=== PATIENT | male | born 1940 | race Caucasian/White ===

== ENCOUNTER 2021-05-16 13:51 | Inpatient (IN) | payer MEDICARE ==
[~2021-05-16] VITALS: Ht 180.3 cm; Wt 97.3 kg
[2021-05-16] MEDS ORDERED: AMLO-187 PO (14:20)
[2021-05-16] MEDS ORDERED: TAMS0.4C97 PO (14:20)
[2021-05-16] MEDS ORDERED: OLAN5TAB7 PO (14:20)
[2021-05-16] MEDS ORDERED: QUET50TA5 PO (14:20)
[2021-05-16] MEDS ORDERED: [UNRECOGNIZED DRUG - CODE] OP (14:20)
[2021-05-16] MEDS ORDERED: LEVO750T5 PO (14:20)
[2021-05-16] MEDS ORDERED: ACET325T21 PO (14:20)
--- NOTE | 2021-05-16 14:35 | NUR ---
Admission Note with Justification for Admission to [facility] Patient admitted to [facility] for protective oversight for emergency stabilization of acute psychiatric crisis. Pt admitted from: [facility] Mode of arrival: Secure Transport Accompanied By: Secure Transport Precipitating behaviors that initiated intake and admission: Patient was reported to be anxious, depressed, AMS, ran away from his house and spent the night outside, delusional, sleep disturbance, thinking his is not his . Description of failure of out patient attempts at stabilization in previous setting list behavior and medication trials: Patient hospitalized for UTI at [facility] with consulted. Behaviors and assessment findings upon admission: Patient calm, mildly confused, sitting in wheelchair. He was unable to name place or city; he was oriented to self, day, and year. He repeatedly asked to talk to Cyndi, his niece/DPOA. HE had multiple abrasions on his body in various states of healing. Large abrasions on his right forehead and right elbow were clean, scabbed over, open to air. Abrasion to left elbow was photographed and re-dressed with petroleum gauze and aquafoam. He has a dunlap in place with a STAT lock retaining device. Plan: Admit for protective oversight for adjustment and stabilization of medications, behaviors and mood. Intense treatment regimen including groups, medication adjustments, therapy, consistent regimen for ADL's, self care, and sleep hygiene. Daily monitoring by Inpatient staff, Psychiatry, and Medical Physician.
[2021-05-16 14:45] VITALS: BP 144/66
--- NOTE | 2021-05-16 14:55 | NUR ---
Call placed to "Henry" at [facility] ([phone]) to inform of Guicho's admission to [facility] and to obtain an authorization. Authorization number is [id number]. Guicho is approved thru 05/18/21 with next review due on 05/19/21 in which a [facility] client representative will contact ANDERS Wells to conduct.
[2021-05-16] MEDS ORDERED: ACETAMINOPHEN 325 MG TABLET PO PRN (16:30)
[2021-05-16] MEDS ORDERED: MAGNESIUM HYDROXIDE 2,400 MG/30 ML ORAL.SUSP. PO PRN (16:45)
[2021-05-16] MEDS ORDERED: MAG HYDROX/AL HYDROX/SIMETH 30 ML ORAL.SUSP PO PRN (16:45)
[2021-05-16] MEDS ORDERED: METHYL SALICYLATE/MENTHOL TOPICAL OINTMENT 57GM TUBE. TP PRN (16:45)
[2021-05-16] MEDS ORDERED: POLYVINYL ALCOHOL/POVIDONE/PF OPHTH SOLUTION DROPERETTE. OU PRN (17:00)
[2021-05-16] MEDS: QUEtiapine 50 MG TABLET. PO SCH (20:30)
--- NOTE | 2021-05-16 21:00 | NUR ---
Nursing Note Pt given Bartolome at was short and rude with GINNER HELPER telling her he was going to rip her head off her body. I spoke with him and he stated he was just tired and that she had awakened him from a deep sleep. We talked for a bit about improving his communication techniques and being more acceptable during interactions. Pt admitted to being short with staff and will try better. Pleasant mostly sometimes labile. Compliant with meds.
--- NOTE | 2021-05-16 22:07 | PDOC ---
Exam Note: Ben Note: Please also refer to the separate dictated note~for this date of service dictated separately.~Patient seen individually. Discussed the patient with Nursing staff reviewed the chart.~Reviewed interim history and current functioning. Reviewed vital signs,~Labs/ Radiology~and current medications noted below. Continue current treatment with the changes noted in the dictated addendum note Assessment: Vital Signs/I&O: Vital Signs Date Time Temp Pulse Resp B/P (MAP) Pulse Ox O2 Delivery O2 Flow Rate FiO2 05/16/21 14:45 97.9 77 16 144/66 (92) 97 Room Air Current Medications: Meds: Current Medications Medications (Trade) Dose Ordered Sig/Angy Route PRN Reason Start Time Stop Time Status Last Admin Dose Admin Acetaminophen (Tylenol) 650 mg PRN Q4HRS PRN PO MILD PAIN / TEMP > 100.3'F 05/16/21 16:30 Amlodipine Besylate (Norvasc) 10 mg DAILY PO 05/17/21 09:00 Levofloxacin (Levaquin) 750 mg DAILY PO 05/17/21 09:00 05/21/21 21:00 Olanzapine (ZyPREXA ZYDIS) 5 mg PRN BID PRN PO PSYCHOSIS 05/16/21 16:30 Quetiapine Fumarate (SEROquel) 50 mg QHS PO 05/16/21 21:00 05/16/21 20:30 Tamsulosin HCl (Flomax) 0.4 mg DAILY PO 05/17/21 09:00 Artificial Tears (Refresh Classic) 1 drop PRN DAILY PRN OU DRY EYE 05/16/21 17:00 Multi-Ingredient Ointment (Analgesic [place]) 1 radha PRN QID PRN TP MUSCLE PAIN 05/16/21 16:45 Al Hydroxide/Mg Hydroxide (Mylanta Plus Xs) 15 ml PRN AFTMEALHC PRN PO DYSPEPSIA 05/16/21 16:45 Magnesium Hydroxide (Milk Of Magnesia) 2,400 mg PRN QHS PRN PO CONSTIPATION 05/16/21 16:45 Current Medications Medications (Trade) Dose Ordered Sig/Angy Route PRN Reason Start Time Stop Time Status Last Admin Dose Admin Quetiapine Fumarate (SEROquel) 50 mg QHS PO 05/16/21 21:00 05/16/21 20:30 I have reviewed the current psychotropics carefully including drug interactions. Risk benefit ratio favors no change other than as noted in my dictated progress note. MONTSE LAI MD May 16, 2021 22:07
[2021-05-17 04:33] VITALS: BP 159/94
[2021-05-17 06:59] LABS: BASO # 0.1 x10^3/uL (0.0-0.2); BASO % 1 % (0-3); EOS # 0.4 x10^3/uL (0.0-0.7); EOS % 3 % (0-3); HEMATOCRIT 41.5 % (39.0-53.0); HEMOGLOBIN 13.7 g/dL (13.0-17.5); LYMPH # 1.9 x10^3/uL (1.0-4.8); LYMPH % 14 % (24-48); MEAN CORPUSCULAR HEMOGLOBIN 30 pg (25-35); MEAN CORPUSCULAR HGB CONC 33 g/dL (31-37); MEAN CORPUSCULAR VOLUME 92 fL (79-100); MONO # 1.2 x10^3/uL (0.0-1.1); MONO % 9 % (0-9); NEUT # 10.5 x10^3uL (1.8-7.7); NEUT % 74 % (31-73); PLATELET COUNT 278 x10^3/uL (140-400); RED BLOOD COUNT 4.53 x10^6/uL (4.30-5.70); RED CELL DISTRIBUTION WIDTH 14.4 % (11.5-14.5); WHITE BLOOD COUNT 14.1 x10^3/uL (4.0-11.0)
[2021-05-17 07:10] LABS: ALBUMIN 3.2 g/dL (3.4-5.0); ALBUMIN/GLOBULIN RATIO 0.8 (1.0-1.7); CALCIUM 8.2 mg/dL (8.5-10.1); CREATININE 1.3 mg/dL (0.7-1.3); MAGNESIUM 2.1 mg/dL (1.8-2.4); POTASSIUM 3.6 mmol/L (3.5-5.1); TOTAL BILIRUBIN 0.3 mg/dL (0.2-1.0)
--- NOTE | 2021-05-17 07:43 | EKG ---
[address] [address] Test Date: 2021-05-17 Test Time: 07:23:19 Pat Name: OSMEL ZHANG Department: Room: [address] [place] [address] Gender: M [employer] Super[employer]: : 1940 Requested By: MONTSE LAI Order Number: [id number] Reading MD: Measurements Intervals [place] Rate: 80 P: -5 [place]: 216 QRS: -8 QRSD: 84 T: 12 QT: 362 QTc: 421 Interpretive Statements SINUS RHYTHM PROLONGED [place] INTERVAL LEFTWARD AXIS ABNORMAL ECG RI6.01 No previous ECG available for comparison
[2021-05-17] MEDS: TAMSULOSIN 0.4 MG CAP.ER.24H. PO SCH (08:25)
[2021-05-17] MEDS: levoFLOXacin 750 MG TABLET PO SCH (08:25)
[2021-05-17] MEDS: amLODIPine BESYLATE 10 MG TABLET PO SCH (08:25)
--- NOTE | 2021-05-17 10:29 | NUR ---
Pt was confused and disorganized this morning. He is compliant with medications taken whole. Appetite appears adequate with breakfast. Absent of SI/HI/VH/AH/delusions/pain. Guillen catheter remains patent with clear light yellow urine. He has no complaints/concerns at this time. Plan of care continues, will pass to next shift.
[2021-05-17 11:23] LABS: % ATYL 3 % (0-0); % BANDS 1 % (0-9); % EOS 3 % (0-5); % LYMPHS 18 % (24-48); % METAS 1 % (0-0); % MONOS 8 % (0-10); % MYELOS 3 % (0-0); % SEGS 63 % (35-66); PLT ESTIMATE ADEQUATE (ADEQUATE)
[2021-05-17 12:15] LABS: THYROID STIM HORMONE (TSH) 5.177 uIU/mL (0.358-3.740)
[2021-05-17 15:03] VITALS: BP 146/76
--- NOTE | 2021-05-17 18:29 | NUR ---
Pt was absent of verbal aggression today, however after taking a phone call from his he was noted to have higher agitation and a short-temper towards staff. Agitation included raising of voice and some swearing directed towards staff. Attempts at verbal de-escalation seemed to only agitate pt further, and so staff decided to cease further conversation with him so he could self-regulate his emotions independently.
[2021-05-17] MEDS: QUEtiapine 50 MG TABLET. PO SCH (19:47)
--- NOTE | 2021-05-17 22:18 | PDOC ---
Exam Note: Ben Note: Please also refer to the separate dictated note~for this date of service dictated separately.~Patient seen individually. Discussed the patient with Nursing staff reviewed the chart.~Reviewed interim history and current functioning. Reviewed vital signs,~Labs/ Radiology~and current medications noted below. Continue current treatment with the changes noted in the dictated addendum note Assessment: Vital Signs/I&O: Vital Signs Date Time Temp Pulse Resp B/P (MAP) Pulse Ox O2 Delivery O2 Flow Rate FiO2 05/17/21 15:03 98.1 78 16 146/76 (99) 95 05/16/21 14:45 Room Air I & O 05/16/21 05/16/21 05/17/21 14:00 22:00 06:00 Intake Total 240 ml 120 ml Balance 240 ml 120 ml Labs: Laboratory Tests Test 05/17/21 06:21 White Blood Count 14.1 x10^3/uL (4.0-11.0) H Red Blood Count 4.53 x10^6/uL (4.30-5.70) Hemoglobin 13.7 g/dL (13.0-17.5) Hematocrit 41.5 % (39.0-53.0) Mean Corpuscular Volume 92 fL (79-100) Mean Corpuscular Hemoglobin 30 pg (25-35) Mean Corpuscular Hemoglobin Concent 33 g/dL (31-37) Red Cell Distribution Width 14.4 % (11.5-14.5) Platelet Count 278 x10^3/uL (140-400) Neutrophils (%) (Auto) 74 % (31-73) H Lymphocytes (%) (Auto) 14 % (24-48) L Monocytes (%) (Auto) 9 % (0-9) Eosinophils (%) (Auto) 3 % (0-3) Basophils (%) (Auto) 1 % (0-3) Neutrophils # (Auto) 10.5 x10^3uL (1.8-7.7) H Lymphocytes # (Auto) 1.9 x10^3/uL (1.0-4.8) Monocytes # (Auto) 1.2 x10^3/uL (0.0-1.1) H Eosinophils # (Auto) 0.4 x10^3/uL (0.0-0.7) Basophils # (Auto) 0.1 x10^3/uL (0.0-0.2) Segmented Neutrophils % 63 % (35-66) Band Neutrophils % 1 % (0-9) Lymphocytes % 18 % (24-48) L Atypical Lymphocytes % (Manual) 3 % (0-0) H Monocytes % 8 % (0-10) Eosinophils % 3 % (0-5) Metamyelocytes % 1 % (0-0) H Myelocytes % 3 % (0-0) H Platelet Estimate Adequate (ADEQUATE) D-Dimer (Mattie) 8.46 mg/L (0.00-0.50) H Sodium Level 143 mmol/L (136-145) Potassium Level 3.6 mmol/L (3.5-5.1) Chloride Level 105 mmol/L (98-107) Carbon Dioxide Level 31 mmol/L (21-32) Anion Gap 7 (6-14) Blood Urea Nitrogen 22 mg/dL (8-26) Creatinine 1.3 mg/dL (0.7-1.3) Estimated GFR (Cockcroft-Gault) 53.0 BUN/Creatinine Ratio 17 (6-20) Glucose Level 107 mg/dL (70-99) H Calcium Level 8.2 mg/dL (8.5-10.1) L Magnesium Level 2.1 mg/dL (1.8-2.4) Iron Level 51 ug/dL (65-175) L Total Iron Binding Capacity 242 ug/dL (250-450) L Iron Saturation 21 % (15-34) Total Bilirubin 0.3 mg/dL (0.2-1.0) Aspartate Amino Transferase (AST) 38 U/L (15-37) H Alanine Aminotransferase (ALT) 78 U/L (16-63) H Alkaline Phosphatase 108 U/L (46-116) Total Protein 7.0 g/dL (6.4-8.2) Albumin 3.2 g/dL (3.4-5.0) L Albumin/Globulin Ratio 0.8 (1.0-1.7) L Triglycerides Level 145 mg/dL (0-150) Cholesterol Level 175 mg/dL (0-200) LDL Cholesterol, Calculated 101 mg/dL (0-100) H VLDL Cholesterol, Calculated 29 mg/dL (0-40) Non-HDL Cholesterol Calculated 130 mg/dL (0-129) H HDL Cholesterol 45 mg/dL (40-60) Cholesterol/HDL Ratio 3.0 Thyroid Stimulating Hormone (TSH) 5.177 uIU/mL (0.358-3.740) Current Medications: Meds: Laboratory Tests Test 05/17/21 06:21 White Blood Count 14.1 x10^3/uL Red Blood Count 4.53 x10^6/uL Hemoglobin 13.7 g/dL Hematocrit 41.5 % Mean Corpuscular Volume 92 fL Mean Corpuscular Hemoglobin 30 pg Mean Corpuscular Hemoglobin Concent 33 g/dL Red Cell Distribution Width 14.4 % Platelet Count 278 x10^3/uL Neutrophils (%) (Auto) 74 % Lymphocytes (%) (Auto) 14 % Monocytes (%) (Auto) 9 % Eosinophils (%) (Auto) 3 % Basophils (%) (Auto) 1 % Neutrophils # (Auto) 10.5 x10^3uL Lymphocytes # (Auto) 1.9 x10^3/uL Monocytes # (Auto) 1.2 x10^3/uL Eosinophils # (Auto) 0.4 x10^3/uL Basophils # (Auto) 0.1 x10^3/uL Segmented Neutrophils % 63 % Band Neutrophils % 1 % Lymphocytes % 18 % Atypical Lymphocytes % (Manual) 3 % Monocytes % 8 % Eosinophils % 3 % Metamyelocytes % 1 % Myelocytes % 3 % Platelet Estimate Adequate D-Dimer (Mattie) 8.46 mg/L Sodium Level 143 mmol/L Potassium Level 3.6 mmol/L Chloride Level 105 mmol/L Carbon Dioxide Level 31 mmol/L Anion Gap 7 Blood Urea Nitrogen 22 mg/dL Creatinine 1.3 mg/dL Estimated GFR (Cockcroft-Gault) 53.0 BUN/Creatinine Ratio 17 Glucose Level 107 mg/dL Calcium Level 8.2 mg/dL Magnesium Level 2.1 mg/dL Iron Level 51 ug/dL Total Iron Binding Capacity 242 ug/dL Iron Saturation 21 % Total Bilirubin 0.3 mg/dL Aspartate Amino Transf (AST/SGOT) 38 U/L Alanine Aminotransferase (ALT/SGPT) 78 U/L Alkaline Phosphatase 108 U/L Total Protein 7.0 g/dL Albumin 3.2 g/dL Albumin/Globulin Ratio 0.8 Triglycerides Level 145 mg/dL Cholesterol Level 175 mg/dL LDL Cholesterol, Calculated 101 mg/dL VLDL Cholesterol, Calculated 29 mg/dL Non-HDL Cholesterol Calculated 130 mg/dL HDL Cholesterol 45 mg/dL Cholesterol/HDL Ratio 3.0 Thyroid Stimulating Hormone (TSH) 5.177 uIU/mL Current Medications Medications (Trade) Dose Ordered Sig/Angy Route PRN Reason Start Time Stop Time Status Last Admin Dose Admin Acetaminophen (Tylenol) 650 mg PRN Q4HRS PRN PO MILD PAIN / TEMP > 100.3'F 05/16/21 16:30 Amlodipine Besylate (Norvasc) 10 mg DAILY PO 05/17/21 09:00 05/17/21 08:25 Levofloxacin (Levaquin) 750 mg DAILY PO 05/17/21 09:00 05/21/21 21:00 05/17/21 08:25 Olanzapine (ZyPREXA ZYDIS) 5 mg PRN BID PRN PO PSYCHOSIS 05/16/21 16:30 05/17/21 19:49 Quetiapine Fumarate (SEROquel) 50 mg QHS PO 05/16/21 21:00 05/17/21 19:47 Tamsulosin HCl (Flomax) 0.4 mg DAILY PO 05/17/21 09:00 05/17/21 08:25 Artificial Tears (Refresh Classic) 1 drop PRN DAILY PRN OU DRY EYE 05/16/21 17:00 Multi-Ingredient Ointment (Analgesic [place]) 1 radha PRN QID PRN TP MUSCLE PAIN 05/16/21 16:45 Al Hydroxide/Mg Hydroxide (Mylanta Plus Xs) 15 ml PRN AFTMEALHC PRN PO DYSPEPSIA 05/16/21 16:45 Magnesium Hydroxide (Milk Of Magnesia) 2,400 mg PRN QHS PRN PO CONSTIPATION 05/16/21 16:45 Current Medications Medications (Trade) Dose Ordered Sig/Angy Route PRN Reason Start Time Stop Time Status Last Admin Dose Admin Amlodipine Besylate (Norvasc) 10 mg DAILY PO 05/17/21 09:00 05/17/21 08:25 Levofloxacin (Levaquin) 750 mg DAILY PO 05/17/21 09:00 05/21/21 21:00 05/17/21 08:25 Tamsulosin HCl (Flomax) 0.4 mg DAILY PO 05/17/21 09:00 05/17/21 08:25 I have reviewed the current psychotropics carefully including drug interactions. Risk benefit ratio favors no change other than as noted in my dictated progress note. Diagnosis: Problems: (1) Major neurocognitive disorder MONTSE LAI MD May 17, 2021 22:18
--- NOTE | 2021-05-18 00:39 | NUR ---
Nursing note. Pt compliant and cooperative, but thinks his catheter is a conduit for al things alien. Pt attempting to crush tubing of catheter, reminded him it's there for a reason so that the will not become critically ill. Pt agreed to leave it alone for now.
--- NOTE | 2021-05-18 05:37 | CONS ---
HISTORY OF PRESENT ILLNESS: The patient is an 80-year-old male patient who was referred to [facility] from [facility]. He apparently was admitted there with extreme anxiety, depression, and altered mental status. He ran away from his house and spent a night outside. He is delusional with sleep disturbances, thinks that his is not his . 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 PAST PSYCHIATRIC HISTORY: Significant for dementia with neurocognitive disorder. PAST SURGICAL HISTORY: Significant for ventriculoperitoneal shunt placement. He is also known to have dementia without behavioral disturbances, osteoarthritis, and he also has right total knee arthroplasty. ALLERGIES: He has no known drug allergies. FAMILY HISTORY: His mother has lung cancer. Father has heart disease and heart attack. SOCIAL HISTORY: He is . He lives with his . He is a former smoker, smokes about a pack a day, and smoked for about 7 years, quit in 1964. He does not use any smokeless tobacco, does not drink alcohol or use recreational drugs. PHYSICAL EXAMINATION: GENERAL: When I examined him, he was sitting in his wheelchair in no apparent respiratory distress. He was somewhat pale, but not jaundiced or cyanosed. No lymphadenopathy. No thyromegaly or jugular venous distention. No limb edema. VITAL SIGNS: His heart rate was 78, blood pressure is 146/76, temperature was 98.1, respiratory rate 16, and oxygen saturation was 95%. HEAD, EYES, EARS, NOSE, AND THROAT: Normocephalic, atraumatic. NECK: Supple. HEART: Normal first and second heart sounds, no gallop, rub or murmur. CHEST: Clear to auscultation, no crepitation or rhonchi. ABDOMEN: Scaphoid, soft, nontender. NEUROLOGIC: He is awake, alert, and responding appropriately. All cranial nerves intact. He moves extremities without difficulty, although he is mostly wheelchair bound. He apparently has an indwelling Guillen catheter. LABORATORY DATA: Showed a white cell count of 14,000, hemoglobin 14, hematocrit 42, MCV 92 and platelet count of 278,000 with normal manual differential. His chemistry showed a serum sodium 143, potassium 3.6, chloride 105, bicarbonate 31, anion gap of 7, BUN 22, creatinine 1.3. Estimated GFR was 53 mL per minute. His glucose 107, calcium was 8.2, magnesium was 2.1. Serum iron 61 , TIBC was low at 242 and iron saturation was 21. His total bilirubin and alkaline phosphatase are normal. AST and ALT are slightly elevated. Total protein 7, albumin was 3.2. His serum triglycerides was 145. Total cholesterol was 175, LDL cholesterol 101, VLDL was 29, HDL was 45 and the ratio was 3. His TSH was 5.177, which is slightly above the upper limit of normal. Apparently, his coronavirus by PCR was negative. He had CT scan of the head without contrast, which showed no acute intracranial abnormality identified. His right parietal approach ventriculostomy shunt catheter again noted with unchanged appearance of the ventricles. He has generalized atrophy and chronic microvascular ischemic changes, mild mucosal thickening of the paranasal sinuses. He apparently has had acute kidney injury while at [facility] with a creatinine that has risen up to 3.5, now down to 1.3 mg/dL and he was initially treated with Rocephin, but was transferred to [facility] on [facility]. ASSESSMENT AND PLAN: In summary, this is an 80-year-old male patient, who was admitted to [facility] as a transfer from [facility] in account of anxiety, depression, and altered mental status. He ran away from his house and spent the night outside delusionut with marked sleep disturbances. He thinks his is not his . All of this on a background of neurocognitive disorder due to Parkinson's disease. He has multiple medical problems including: hypertension, hyperlipidemia, morbid obesity, normal pressure hydrocephalus, Parkinson's disease, benign prostatic hypertrophy with bladder outlet obstruction requiring indwelling Guillen catheter. Medically, the patient seems to be stable. All his vital signs are well within acceptable range. I reviewed all his lab work and ____ his white cell count was slightly elevated within the context of urinary tract infection for which he is currently on levofloxacin. He apparently grew Klebsiella pneumoniae and initially treated with IV Rocephin and eventually was switched to oral antibiotic in the form of levofloxacin. All his other lab works are within acceptable ranges, slightly elevated AST and ALT likely due to antibiotic treatment. His TSH was slightly elevated at 1.77 with the upper limit of normal at 3.7. I will order T3, T4, free T4 and we will decide on management dependent on the outcome. Thank you, Dr. Lopez, for allowing me to participate in the care of this patient. DIANA/RISA DR: Luis TID: [id number]
[2021-05-18 06:15] VITALS: BP 151/67
[2021-05-18 07:08] LABS: HEMOGLOBIN A1C 6.1 % (4.8-5.6)
[2021-05-18 08:07] LABS: THYROXINE 6.7 ug/dL (4.5-12.0)
[2021-05-18] MEDS: levoFLOXacin 750 MG TABLET PO SCH (09:02)
[2021-05-18] MEDS: amLODIPine BESYLATE 10 MG TABLET PO SCH (09:02)
[2021-05-18] MEDS: TAMSULOSIN 0.4 MG CAP.ER.24H. PO SCH (09:03)
--- NOTE | 2021-05-18 10:58 | NUR ---
RN DAY SHIFT NOTE: PT PRESENTS WITH PLEASANT MOOD/AFFECT. PT WAS MEDICATION COMPLIANT. PT IS ENGAGEABLE WHEN APPROACHED BY STAFF. PT FOLLOWS RULES AND ROUTINES ON THE UNIT. PT KNOWS HE IS IN THE HOSPITAL. PT BP 151/67, OTHER VITALS WNL. PT SLEPT 7.75 HOURS LAST NIGHT. PT SPENDS TIME SITTING AND KEEPS TO HIMSELF ON THE UNIT. WILL CONTINUE TO MONITOR
[2021-05-18 15:51] VITALS: BP 111/64
--- NOTE | 2021-05-18 19:17 | HP ---
ADMIT DATE: 05/16/2021 PSYCHIATRIC ADMISSION HISTORY/EVALUATION: This is a late entry, date of service, 05/16, covers elements not covered in my initial note of 05/16. I met with the patient on the evening of 05/16 shortly after he was admitted on the unit from [facility]. IDENTIFYING DATA: The patient is an 80-year-old male who presents to us from [facility] where he was hospitalized from home on account of increased anxiety, being depressed with acute mental status changes within the context of his UTI. The patient had run away from home, spent the night outside, was delusional, having marked sleep disturbance. He was convinced that his was an impostor. He had been evaluated at [facility] by Dr. Fernandez, psychiatrist, diagnosed with dementia with delusions and Capgras syndrome, deemed to be a potential danger to himself and others. Given his psychosis, agitation, unmanageable behaviors, he was referred for inpatient psychiatric stabilization. In addition to his Parkinson's, he also has a diagnosis of normal pressure hydrocephalus with ventriculoperitoneal shunt in place. CHIEF COMPLAINT: "I came here today from the hospital. Yes, I get a little confused. It is 04/2021. The president is President Ishmael. Before him, it was president Guy." The patient responded above to my specific questions as detailed below in mental status. HISTORY OF PRESENT ILLNESS: The patient reportedly lives at home with his and has been extremely paranoid, psychotic, delusional, believing she is an impostor. He has been agitated there, ran away from home as noted, angry, irritable with marked sleep disturbance, and behaviors have been deemed dangerous, unmanageable, resulting in this referral. PAST PSYCHIATRIC HISTORY: As above. MEDICAL HISTORY: Positive for urinary sepsis, Parkinson's disease, normal pressure hydrocephalus with JEWELRY CUTTER shunt, obesity, hypertension, hyperlipidemia, hypokalemia, BPH, fluid retention. Guillen catheter in place. DIET: Cardiac. ACCU-CHEKS: None. CURRENT PSYCHOTROPICS: Zyprexa 5 mg p.r.n. b.i.d., Seroquel 50 mg at bedtime. FAMILY HISTORY: Noncontributory. SOCIAL HISTORY: The patient lives at home with his . No alcohol, drug abuse, physical, sexual or elder abuse history is noted. He is not known to be a perpetrator. He states he had 1 son who had a motor vehicle accident at age 15 with severe head injury and was on life sustaining measures at home for about 10 years before he . REACTION TO HOSPITALIZATION: The patient accepting of it. ASSETS: Supportive family. REVIEW OF SYSTEMS: Positive for some tiredness. No CV, , pulmonary, eye, ENT system symptoms on review. MENTAL STATUS EXAMINATION: The patient is oriented to himself and situation. He knew it was 04/2021. The president was President Ishmael. Before President Bidtanvi, it was president Guy. He was able to do one step on serial sevens and no more. Attention span short. He is otherwise able to give a relevant history as noted. Attention span short. Language function intact. Mood and affect somewhat irritable, angry, labile at times. No active suicidal or homicidal ideation. He does appear depressed as well quite distractable. LABORATORY DATA: Reviewed. IMPRESSION: Major depressive disorder, rule out psychotic features; major neurocognitive disorder secondary to Parkinson's and normal pressure hydrocephalus, possibly vascular with delusion, depression, behavioral disturbance; anxiety disorder, unspecified; impulse control disorder, unspecified. Rest as noted above. PLAN: Admit to geropsychiatry unit at [facility]. I will see the patient daily individually from a psychiatric standpoint. Medical followup, Dr. Castellon/Dr. Gutierrez. Continue the patient on his current psychotropics. Observe baseline. Make adjustments as clinically indicated. Consider having a CT head workup of his normal pressure hydrocephalus, especially given acute mental status changes even though they are within the context of his UTI and Parkinson's. We will make further adjustments as clinically indicated. ESTIMATED LENGTH OF STAY: 10-12 days. DISPOSITION PLANS: Possibly back home with outpatient followup. MOOSE DR: Pepper TID: [id number]
[2021-05-18] MEDS: QUEtiapine 50 MG TABLET. PO SCH (20:59)
[2021-05-18] MEDS: LACTOBACILLUS RHAMNOSUS GG 1 CAPSULE. PO SCH (20:59)
--- NOTE | 2021-05-18 22:06 | PDOC ---
Exam Note: Ben Note: Please also refer to the separate dictated note~for this date of service dictated separately.~Patient seen individually. Discussed the patient with Nursing staff reviewed the chart.~Reviewed interim history and current functioning. Reviewed vital signs,~Labs/ Radiology~and current medications noted below. Continue current treatment with the changes noted in the dictated addendum note Assessment: Vital Signs/I&O: Vital Signs Date Time Temp Pulse Resp B/P (MAP) Pulse Ox O2 Delivery O2 Flow Rate FiO2 05/18/21 15:51 97.9 78 16 111/64 (80) 95 05/16/21 14:45 Room Air I & O 05/17/21 05/17/21 05/18/21 15:00 23:00 07:00 Intake Total 840 ml 600 ml Output Total 1500 ml Balance 840 ml 600 ml -1500 ml Current Medications: Meds: Current Medications Medications (Trade) Dose Ordered Sig/Angy Route PRN Reason Start Time Stop Time Status Last Admin Dose Admin Acetaminophen (Tylenol) 650 mg PRN Q4HRS PRN PO MILD PAIN / TEMP > 100.3'F 05/16/21 16:30 Amlodipine Besylate (Norvasc) 10 mg DAILY PO 05/17/21 09:00 05/18/21 09:02 Levofloxacin (Levaquin) 750 mg DAILY PO 05/17/21 09:00 05/21/21 21:00 05/18/21 09:02 Olanzapine (ZyPREXA ZYDIS) 5 mg PRN BID PRN PO PSYCHOSIS 05/16/21 16:30 05/17/21 19:49 Quetiapine Fumarate (SEROquel) 50 mg QHS PO 05/16/21 21:00 05/18/21 20:59 Tamsulosin HCl (Flomax) 0.4 mg DAILY PO 05/17/21 09:00 05/18/21 09:03 Artificial Tears (Refresh Classic) 1 drop PRN DAILY PRN OU DRY EYE 05/16/21 17:00 Multi-Ingredient Ointment (Analgesic [place]) 1 radha PRN QID PRN TP MUSCLE PAIN 05/16/21 16:45 Al Hydroxide/Mg Hydroxide (Mylanta Plus Xs) 15 ml PRN AFTMEALHC PRN PO DYSPEPSIA 05/16/21 16:45 Magnesium Hydroxide (Milk Of Magnesia) 2,400 mg PRN QHS PRN PO CONSTIPATION 05/16/21 16:45 Lactobacillus Rhamnosus (Culturelle) 1 cap BID PO 05/18/21 21:00 05/18/21 20:59 Current Medications Medications (Trade) Dose Ordered Sig/Angy Route PRN Reason Start Time Stop Time Status Last Admin Dose Admin Lactobacillus Rhamnosus (Culturelle) 1 cap BID PO 05/18/21 21:00 05/18/21 20:59 I have reviewed the current psychotropics carefully including drug interactions. Risk benefit ratio favors no change other than as noted in my dictated progress note. 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
--- NOTE | 2021-05-18 23:15 | NUR ---
Pt withdrawn to his room, lying in bed when approached. Pt calm, pleasantly confused, and disorganized. Pt cooperative with assessment and compliant with medications administered whole. No anxiety or delusions thus far this shift.
[2021-05-19 05:43] VITALS: BP 151/65
--- NOTE | 2021-05-19 05:53 | NUR ---
At approximately 2330 last night, pt pulled out his dunlap catheter with balloon full and intact. Pt actively bleeding afterwards. When asked why he had pulled the catheter out, pt replied, "I had to piss". Pt sitting on the toilet, staff assisted pt to stand and area cleansed with wipes. When pulling back pt's foreskin, a clot the size of a quarter was removed. Clean brief applied with wash cloth placed over top of penis to monitor bleeding. Rechecked bleeding after 30 minutes, bleeding had slowed but there was still a copious amount of blood on the washcloth. Area cleansed again and clean wash cloth applied. Rechecked at 0115 with only a small amount of blood noted on the wash cloth, which was left in place and pt checked every hour. Pt up to the bathroom at 0430 and was able to void, there was a very large amount of blood noted in the toilet after void but only a small amount noted from penis. Post void residual bladder scan yields < 93mL retained urine in the bladder.
--- NOTE | 2021-05-19 07:02 | PDOC ---
Exam Note: Ben Note: This note is a late entry for 05/17/2021 covers elements not covered in my initial note. Subjective: The patient was seen face to face in the evening of 05/17/2021 with Zeinab ENCINAS, discussed and reviewed the chart. The patient slept 7 hours previous night. He has been scratching himself at the elbow by crawling on the ground. He does have a Guillen in place due to urinary retention. He has talked about his 16-year-old son in a motor vehicle accident and finally after 10 years of being cared at home. He is somewhat irritable, anxious, restless during the af ternoon with little bit better later in the day. We will check CT head if not done in 6 months. WBC is 14.1 better than the [address] previously. We will defer to Dr. Castellon. He continues to be convinced his Anya is an imposter and I addressed with him. Review of Systems: Ambulation impaired with walker. No CV, , pulmonary, eye system symptoms on review. Mental Status Exam: The patient is oriented to himself and situation. Speech is coherent. Abstraction fair. Computation impaired. Language function intact. Mood and affect depressed and anxious, labile at times. No suicidal or homicidal ideation. Laboratory Data: Reviewed. 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 Anxiety disorder, unspecified. Impulse control disorder, unspecified. Major depressive disorder. Plan: Continue current psychotropics. Lab workup as above. Treat the UTI. We will make further adjustments in psychotropics as clinically indicated. Assessment: Vital Signs/I&O: Vital Signs Date Time Temp Pulse Resp B/P (MAP) Pulse Ox O2 Delivery O2 Flow Rate FiO2 05/19/21 05:43 98.8 79 18 151/65 (93) 95 Room Air I & O 05/18/21 05/18/21 05/19/21 15:00 23:00 07:00 Intake Total 720 ml 420 ml Output Total 600 ml 1300 ml Balance 720 ml -180 ml -1300 ml Current Medications: Meds: Current Medications Medications (Trade) Dose Ordered Sig/Angy Route PRN Reason Start Time Stop Time Status Last Admin Dose Admin Lactobacillus Rhamnosus (Culturelle) 1 cap BID PO 05/18/21 21:00 05/18/21 20:59 I have reviewed the current psychotropics carefully including drug interactions. Risk benefit ratio favors no change other than as noted in my dictated progress note. 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
[2021-05-19] MEDS: levoFLOXacin 750 MG TABLET PO SCH (08:07)
[2021-05-19] MEDS: LACTOBACILLUS RHAMNOSUS GG 1 CAPSULE. PO SCH ×2 (08:07→20:47)
[2021-05-19] MEDS: TAMSULOSIN 0.4 MG CAP.ER.24H. PO SCH (08:08)
[2021-05-19] MEDS: amLODIPine BESYLATE 10 MG TABLET PO SCH (08:08)
--- NOTE | 2021-05-19 10:00 | RAD ---
EXAM: Head CT without contrast. HISTORY: Altered mental status. TECHNIQUE: Computed tomographic images of the head were obtained without contrast. *One or more of the following individualized dose reduction techniques were utilized for this examina tion: 1. Automated exposure control. 2. Adjustment of the mA and/or kV according to patient size. 3. Use of iterative reconstruction technique. COMPARISON: None. FINDINGS: There is a right parietal approach ventricular catheter terminating within the body of the left lateral ventricle slightly to the left of midline. There is moderate ventricular enlargement. Th is appears to be appropriate for the degree of cerebral atrophy. There is an incidental cavum septum pellucidum et vergae. There are areas of decreased attenuation within the cerebral white matter, like ly due to chronic small vessel disease. There is decreased right maxillary sinus size due to the sequela of chronic sinusitis or hypoplasia. There is paranasal sinus also thickening. There is sphenoid sinus wall thickening due to chronic sinu sitis and there is a small sphenoid sinus mucous retention cyst. The mastoid air cells are clear. The re is no suspicious calvarial lesion. IMPRESSION: 1. No acute intracranial finding. Note is made that MRI is more sensitive for acute infarction. 2. Right parietal approach ventricular catheter terminating within the left lateral ventricle. The ve ntricles are prominent in size. However, this appears to be within appropriate limits for the degree of cerebral volume loss. There is no prior study to assess for interval change. 3. Bilateral cerebral white matter changes, likely due to chronic small vessel disease. Electronically signed by: Amelia Adame MD (05/19/2021 9:58 AM) [id number]
--- NOTE | 2021-05-19 10:49 | RAD ---
EXAM: CT right femur without IV contrast DATE: 05/19/2021 9:00 AM COMPARISON: No prior INDICATION: mass in the anterior aspect of right thigh TECHNIQUE: CT of the right femur was performed without IV contrast. Axial, coronal and sagittal refor matted images were generated. PQRS compliance statement - One or more of the following individualized dose reduction techniques wer e utilized for this study: 1. Automated exposure control 2. Adjustment of the mA and/or kV according to patient size 3. Use of iterative reconstruction technique FINDINGS: A fat-containing lesion is seen within the anterior-medial right thigh is seen measuring approximatel y 5 x 8 x 28 cm (AP by transverse by craniocaudal). This mass appears to be a part of the sartorius m uscle belly with associated displacement of the residual muscle. Internal septations are seen. This m ass causes bowing of the overlying fascia. The the right femoral artery is seen at the posterior jacoby in of this mass. Atherosclerotic calcifications are seen. Prostate is enlarged. No pelvic ascites. Small focus of gas within the bladder possibly from recent i nstrumentation. No acute fracture or dislocation. IMPRESSION: Fat-containing mass in the anteromedial right thigh is seen. 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 Electronically signed by: Edmar Fernandez MD (05/19/2021 10:47 AM) [facility]
--- NOTE | 2021-05-19 11:05 | NUR ---
RN DAY SHIFT NOTE: PT PRESENTED WITH A PLEASANT MOOD/AFFECT. PT WAS MEDICATION COMPLIANT. PT KNEW HIS NAME AND BIRTHDAY. PT KNOWS HE IS IN THE HOSPITAL, BUT CAN'T REMEMBER WHAT CITY. PT IS LOW-SCOTT ON THE UNIT. PT IS NOTED TO SPEND TIME SITTING IN THE HALLWAY. PT WILL ENGAGE WITH STAFF WHEN APPROACHED AND IS APPROACHABLE. PT FOLLOWS RULES/ROUTINES ON THE UNIT. PT HAS A BP OF 151/65 AND OTHER VITALS ARE WNL. PT SLEPT 4 HOURS LAST NIGHT. PT CONTINUES TO HAVE A GOOD APPETITE. WILL CONTINUE TO MONITOR.
--- NOTE | 2021-05-19 12:52 | NUR ---
WEEKLY ACTIVITY THERAPY NOTE Date of Admission: 05/16/2021 Date of AT Assessment: TBD Precipitating behaviors that initiated intake and admission: Patient was reported to be anxious, depressed, AMS, ran away from his house and spent the night outside, delusional, sleep disturbance, thinking his is not his . Goal aimed: TBD Initial Goal: TBD Weekly progress towards goal: NA Group participation level: NA Weekly highlights: arrived on unit Behaviors observed: new patient Plan: meet/ assess Pt Beneficial adaptations:
--- NOTE | 2021-05-19 13:00 | NUR ---
ACTIVITY THERAPY ASSESSMENT Completed based on observation, interview, and notes. Pt was sitting in his doorway and willing to speak with AUTOMOBILE TESTER. When offered leisure materials, Pt said "anything will be beneficial;" however, he did not specify. He shared he liked cars, working on equipment, physical therapy (weights and bands), reading, and liked country/western and early 70's music. 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 He was wearing a [employer] shirt and said he was a [employer]. He mentioned he keeps in touch with his family and friends occasionally. He said he has a good handle on his stress and would weight lift to manage it. He said he can see and hear ok but knows his memory is "slipping", and identified that as being one reason he is here. Reports indicate Pt is confused, forgetful, disorganized, and verbally aggressive at times. He removed his Guillen, impulsively and would benefit from supervision for safety and social/ leisure opportunities. Initial goal aimed to increase relaxation techniques and socialization: Pt. will participate in at least five Activity Therapy individual or group sessions per week.
--- NOTE | 2021-05-19 14:00 | NUR ---
ANDERS completed concurrent review with Brittaney at [facility]. Based off the information received pt will be approved for continued stay for the next two days with concurrent review due on 05/21 at 1300. Authorization number #[id number]
--- NOTE | 2021-05-19 14:12 | NUR ---
Treatment team update: Pt is eating between 75-100% of meals and sleeping 4 hours at HS. Pt is mostly cooperative and compliant with medications whole. Pt is A/O times 2; but appears more confused in the evening. Pt pulled out his dunlap last night; nursing to continue with doing bladder scans to see if he can void on his own. Pt will stop Seroquel 50mg q HS, start Risperdal 0.5mg q HS, Zoloft 25mg daily and Remeron 7.5mg at HS. Pt family is looking for placement; however, pending insurance review, pt may have to discharge home with private duty services until placement can be found.
[2021-05-19 15:35] LABS: BILIRUBIN,URINE NEG (NEG); CLARITY,URINE CLOUDY; COLOR,URINE YELLOW; GLUCOSE,URINE NEG (NEG); NITRITE,URINE NEG (NEG); RBC,URINE >40 /HPF (0-2); UROBILINOGEN,URINE 0.2 mg/dL (0.2 mg/dL)
[2021-05-19 15:36] LABS: BACTERIA,URINE 0 /HPF (0-FEW); SQUAMOUS EPITHELIAL CELL,UR FEW /LPF; WBC,URINE OCC /HPF (0-4)
--- NOTE | 2021-05-19 16:30 | NUR ---
PSYCHOSOCIAL ASSESSMENT ADMISSION DATE: 05/16/21 CONTACT INFORMATION: DPOA/Guardian Contact Name: Yumiko Herrera (Dee) Contact Address: [facility] Contact Phone #: ETHNIC ORIGIN: REASONS FOR ADMISSION: Anxiety/Panic Delusions Depressed Sig. Change Sleep ADDITIONAL ADMISSION COMMENTS: According to the intake, pt is anxious, depressed, has altered mental status, round out of his house and spent the night outside, delusional, sleep disturbance, belives his is not his . REASON FOR ADMISSION IN PATIENT/FAMILY'S OWN WORDS: Was hoping it was just the UTI/sepsis and he would clear but concerns that it is more. PATIENT/FAMILY EXPECTATIONS FOR ADMISSION: Medication and behavioral management, possible placement assistance LIVING SITUATION: Patient lives with: Spouse Other living arrangements: lives at home with spouse and caregiver assist Contact Name: Contact Address: [address] [place] [address]; [place] [address] Contact Phone #: FAMILY RELATIONS: Marital Status: # of Marriages: 1 # of Children: 1 [facility] Family Support: Cooperative Involved in DC Planning Additional Comments r/t Family: Pt is currently to his Anya of over 45 years of marriage. Together they had one son Taras, who in 2007. Pt son had a motorcycle accident which left pt in need of care 12/04. Pt and his surrounded everything around their son until he in 2007 from complications with pneumonia. Pt niece, Nhung, is his next closest living relative. Pt Anya lives in the home and suffers from Dementia herself. SIGNIFICANT PSYCHIATRIC/MEDICAL HISTORY: Psychiatric/Treatment History: This is pt first psychiatric stay on [facility]. Pt was referred from [facility] ED; he was seen by Dr. Fernandez for a psychological evaluation. Further treatment was recommended. Pertinent Family History: No mental health history. Pt family has all passed from medical issues and at early ages. His mother in her late 40's from Cancer, Dad in his mid-60's, one sister from Lupus and his other from Multiple Sclerosis both in there early 70's, his brother passed from Parkinsons in his mid 70's. HISTORICAL DATA: Childhood Environment: [place] Childhood Environment Additional Comments: Pt grew up in [place] with 2 sisters and a brother. All of pt family has passed. Pt niece reports that the family were all close. Pt sister was a nurse for their son while he was receiving care at home. 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 service: N [employer]ational background: [employer] Sexual orientation: Heterosexual Educational Level: Pt received a B.S. in Business from [employer]. Past/Present Interests/Hobbies: N/A Financial support/resources: [employer] Security Monthly income: Person handling finances: Pt has a nephew is his trustee Do you have a history of legal problems: N Cultural considerations: None SOCIAL RELATIONSHIPS-CURRENT/PAST: Psychiatrist: None PCP: Dr. Lalit Puente Counselor/Therapist: None Veterans' Administration: None Support Group: None Aircraft Painter/Twisting Press Operator: None Other relationships: Caregivers in the home STRENGTHS & WEAKNESSES: Patient's strengths: Good family support Good verbal skills Approachable Other patient strengths: Patient's weaknesses: Impulsive Health problems Other patient weaknesses: PRELIMINARY PLAN OF TREATMENT: Preliminary plan: Dec. Anxiety/Panic Dec. Symp. Depression Promote Coping Skill Medication Stabilization Monitor Med Effects Other preliminary treatment comments: DISCHARGE PLANNING: Discharge planning/disposition: Current Living Arrange. Placement Needed Additional discharge needs identified: Referrals for a higher level of care. ADDITIONAL INFORMATION: Other Pertinent Data: completed PSA with pt niece, Nhung, who is currently at pt residence caring for pt . Nhung reports that pt has always said quirky things; but in the last month, pt behaviors has declined. Pt had the shunt placed and physically appeared better as she started walking instead of needing the wheelchair. But his cognition seemed off (e.g. 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 Pt does suffer from Dementia and needs assistance. Pt niece reports that pt was never formally received testing for Parkinsons or Dementia. Pt PCP noted the tremor and questioned Parkinson's but never saw a specialist to confirm it. Same with the Dementia diagnosis. She would like to make sure these diagnosis can be confirmed or documented not as hearsay. Pt rosita also noted that pt does not have a lot of money. Despite all of pt successful business ventures, millions of dollars were spent on care for his son during the years he remained alive. He has a couple assets so he would not qualify for Medicaid but financially is not as well off as people expect pt to be. ANDERS explained that with placement he would be considered as private pay would could be costly; however, pt rosita does not want to attempt for Medicaid at this time. ANDERS informed Nhung that the next insurance review is due on Wednesday and ANDERS would be able to give her an update on how that goes.
[2021-05-19 16:32] VITALS: BP 147/63
[2021-05-19] MEDS: risperiDONE 0.5 MG TABLET. PO SCH (20:47)
[2021-05-19] MEDS: MIRTAZAPINE 7.5 MG TABLET. PO SCH (20:47)
--- NOTE | 2021-05-19 22:06 | PDOC ---
Exam Note: Ben Note: Please also refer to the separate dictated note~for this date of service dictated separately.~Patient seen individually. Discussed the patient with Nursing staff reviewed the chart.~Reviewed interim history and current functioning. Reviewed vital signs,~Labs/ Radiology~and current medications noted below. Continue current treatment with the changes noted in the dictated addendum note Assessment: Vital Signs/I&O: Vital Signs Date Time Temp Pulse Resp B/P (MAP) Pulse Ox O2 Delivery O2 Flow Rate FiO2 05/19/21 16:32 98.3 100 18 147/63 (91) 94 05/19/21 05:43 Room Air I & O 05/18/21 05/18/21 05/19/21 15:00 23:00 07:00 Intake Total 720 ml 420 ml Output Total 600 ml 1300 ml Balance 720 ml -180 ml -1300 ml Labs: Laboratory Tests Test 05/19/21 15:05 Urine Collection Type Unknown Urine Color Yellow Urine Clarity Cloudy Urine pH 5.5 Urine Specific Eaton 1.025 Urine Protein 30 mg/dl (NEG-TRACE) Urine Glucose (UA) Neg mg/dL (NEG) Urine Ketones (Stick) Neg mg/dL (NEG) Urine Blood Large (NEG) Urine Nitrite Neg (NEG) Urine Bilirubin Neg (NEG) Urine Urobilinogen Dipstick 0.2 mg/dL (0.2 mg/dL) Urine Leukocyte Esterase Neg (NEG) Urine RBC >40 /HPF (0-2) Urine WBC Occ /HPF (0-4) Urine Squamous Epithelial Cells Few /LPF Urine Bacteria 0 /HPF (0-FEW) Current Medications: Meds: Laboratory Tests Test 05/19/21 15:05 Urine Collection Type Unknown Urine Color Yellow Urine Clarity Cloudy Urine pH 5.5 Urine Specific Eaton 1.025 Urine Protein 30 mg/dl Urine Glucose (UA) Neg mg/dL Urine Ketones (Stick) Neg mg/dL Urine Blood Large Urine Nitrite Neg Urine Bilirubin Neg Urine Urobilinogen Dipstick 0.2 mg/dL Urine Leukocyte Esterase Neg Urine RBC >40 /HPF Urine WBC Occ /HPF Urine Squamous Epithelial Cells Few /LPF Urine Bacteria 0 /HPF Current Medications Medications (Trade) Dose Ordered Sig/Angy Route PRN Reason Start Time Stop Time Status Last Admin Dose Admin Acetaminophen (Tylenol) 650 mg PRN Q4HRS PRN PO MILD PAIN / TEMP > 100.3'F 05/16/21 16:30 Amlodipine Besylate (Norvasc) 10 mg DAILY PO 05/17/21 09:00 05/19/21 08:08 Levofloxacin (Levaquin) 750 mg DAILY PO 05/17/21 09:00 05/21/21 21:00 05/19/21 08:07 Olanzapine (ZyPREXA ZYDIS) 5 mg PRN BID PRN PO PSYCHOSIS 05/16/21 16:30 05/17/21 19:49 Quetiapine Fumarate (SEROquel) 50 mg QHS PO 05/16/21 21:00 05/19/21 12:13 DC 05/18/21 20:59 Tamsulosin HCl (Flomax) 0.4 mg DAILY PO 05/17/21 09:00 05/19/21 08:08 Artificial Tears (Refresh Classic) 1 drop PRN DAILY PRN OU DRY EYE 05/16/21 17:00 Multi-Ingredient Ointment (Analgesic Xenia) 1 radha PRN QID PRN TP MUSCLE PAIN 05/16/21 16:45 Al Hydroxide/Mg Hydroxide (Mylanta Plus Xs) 15 ml PRN AFTMEALHC PRN PO DYSPEPSIA 05/16/21 16:45 Magnesium Hydroxide (Milk Of Magnesia) 2,400 mg PRN QHS PRN PO CONSTIPATION 05/16/21 16:45 Lactobacillus Rhamnosus (Culturelle) 1 cap BID PO 05/18/21 21:00 05/19/21 20:47 Mirtazapine (Remeron) 7.5 mg QHS PO 05/19/21 21:00 05/19/21 20:47 Sertraline HCl (Zoloft) 25 mg DAILY PO 05/20/21 09:00 Risperidone (RisperDAL) 0.5 mg QHS PO 05/19/21 21:00 05/19/21 20:47 Current Medications Medications (Trade) Dose Ordered Sig/Angy Route PRN Reason Start Time Stop Time Status Last Admin Dose Admin Mirtazapine (Remeron) 7.5 mg QHS PO 05/19/21 21:00 05/19/21 20:47 Risperidone (RisperDAL) 0.5 mg QHS PO 05/19/21 21:00 05/19/21 20:47 I have reviewed the current psychotropics carefully including drug interactions. Risk benefit ratio favors no change other than as noted in my dictated progress note. 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
--- NOTE | 2021-05-19 23:03 | NUR ---
Pt withdrawn to room, lying in bed when approached. Pt disorganized, confused, and interactive. Pt cooperative with assessment and compliant with medications administered whole. Pt up to bathroom, voiding without difficulty at this time. No agitation or aggression noted at this time.
[2021-05-20 05:53] VITALS: BP 141/62
--- NOTE | 2021-05-20 06:30 | NUR ---
Wound Care Wound care consult for abrasion to elbow. Pt has multiple scabbed/healing abrasions to right knee and elbow. Cleansed scabs, not drainage noted. applied skin protectant to keep clean. Wound care will sign off at this time. Please reconsult if new wounds develop.
[2021-05-20] MEDS: levoFLOXacin 750 MG TABLET PO SCH (08:03)
[2021-05-20] MEDS: LACTOBACILLUS RHAMNOSUS GG 1 CAPSULE. PO SCH ×2 (08:04→20:11)
[2021-05-20] MEDS: SERTRALINE 25 MG TABLET. PO SCH (08:04)
[2021-05-20] MEDS: TAMSULOSIN 0.4 MG CAP.ER.24H. PO SCH (08:04)
[2021-05-20] MEDS: amLODIPine BESYLATE 10 MG TABLET PO SCH (08:05)
--- NOTE | 2021-05-20 11:07 | NUR ---
RN DAY SHIFT NOTE: PT PRESENTS WITH CALM, PLEASANT MOOD/AFFECT. PT IS MEDICATION COMPLIANT. PT CONTINUES TO HAVE A GOOD APPETITE. PT SLEPT 5.75 HOURS LAST NIGHT. PTS VITALS ARE WNL. PT IS LOW-SCOTT ON THE UNIT. PT FOLLOWS RULES/ROUTINES ON THE UNIT. PT IS NOTED TO SPEND HIS TIME SITTING IN THE HALLWAY. PT IS APPROACHABLE BY STAFF AND WILL ENGAGE WHEN SPOKEN TO. PT WAS ABLE TO STATE FULL NAME AND . PT KNOWS HE IS IN A HOSPITAL, BUT CANNOT REMEMBER THE NAME OF IT OR THE CITY IT IS IN. WILL CONTINUE TO MONITOR.
--- NOTE | 2021-05-20 15:17 | TX PLAN ---
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 Change Sleep, Anxiety/Panic Problem in Patient's Words: Was hoping it was just the UTI/sepsis and he would clear but concerns that it is more. Additional Admission Comments: According to the intake, pt is anxious, depressed, has altered mental status, round out of his house and spent the night outside, delusional, sleep disturbance, belives his is not his . Problems Active Problems: confusion some impulsivity Inactive Problems: medication compliant Pt Strengths/Limitations Ability for [place]: Poor Cognitive Functioning/Ability: Fair Communication Skills/Ability: Fair Financial Resources: Fair Insight/Judgement: Poor Intellectual Ability: Fair Physical Health: Poor Social Skills: Fair Stability in Family: Good Stability in School/Work: Poor Verbal Skills: Fair Discharge Criteria Discharge Criteria: No need for close observ., Adequate arrangements @DC, Improved behavior, Improved mood/thought Preliminary Discharge Plan Preliminary DC Plan: Placement Needed, Current Living Arrange. Special Precautions Fall Risk: Moderate Initial D/C Plan May have to discharge home with continued caregiver services once placement can be found. Identified Discharge Needs: Referrals for a higher level of care. Currently Utilized Resources Currently Utilized Resources/P: Primary Care Physician Identified Problems/Hx/Goals Objectives/Short-Term Goals Short Term Goals: Dec. Anxiety/Panic, Dec. Symp. Depression, Medication Stabilization, Monitor Med Effects, Promote Coping Skill Short Term Goals in Patient's: N/A Interventions/Frequency Staff Interventions/Frequency&: Psychiatrist to assess pt at least 3x per week for medication management. Social Work to assess pt at least 2x per week to identify barriers to care and finalize discharge plans. Nursing to assess medication effects, behavior modification and complete 15 minute checks daily. Encourage participation in group activities (if applicable) or 1:1 engagement based of Activity Dept goals. 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 Education: Pt received a B.S. in Business from [employer]. 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
[2021-05-20 15:35] VITALS: BP 111/59
--- NOTE | 2021-05-20 16:36 | NUR ---
Bladder Scanner: Used the bladder scanner on pt with a result of 196 ml. PT has voided independently during the shift. Will continue to monitor and encourage pt to void during the shift.
[2021-05-20] MEDS: risperiDONE 0.5 MG TABLET. PO SCH (20:11)
[2021-05-20] MEDS: MIRTAZAPINE 7.5 MG TABLET. PO SCH (20:11)
--- NOTE | 2021-05-20 22:02 | PDOC ---
Exam Note: Ben Note: Please also refer to the separate dictated note~for this date of service dictated separately.~Patient seen individually. Discussed the patient with Nursing staff reviewed the chart.~Reviewed interim history and current functioning. Reviewed vital signs,~Labs/ Radiology~and current medications noted below. Continue current treatment with the changes noted in the dictated addendum note Assessment: Vital Signs/I&O: Vital Signs Date Time Temp Pulse Resp B/P (MAP) Pulse Ox O2 Delivery O2 Flow Rate FiO2 05/20/21 15:35 97.7 59 16 111/59 (76) 96 05/19/21 05:43 Room Air I & O 05/19/21 05/19/21 05/20/21 15:00 23:00 07:00 Intake Total 840 ml 360 ml Balance 840 ml 360 ml Current Medications: Meds: Current Medications Medications (Trade) Dose Ordered Sig/Angy Route PRN Reason Start Time Stop Time Status Last Admin Dose Admin Acetaminophen (Tylenol) 650 mg PRN Q4HRS PRN PO MILD PAIN / TEMP > 100.3'F 05/16/21 16:30 Amlodipine Besylate (Norvasc) 10 mg DAILY PO 05/17/21 09:00 05/20/21 08:05 Levofloxacin (Levaquin) 750 mg DAILY PO 05/17/21 09:00 05/21/21 21:00 05/20/21 08:03 Olanzapine (ZyPREXA ZYDIS) 5 mg PRN BID PRN PO PSYCHOSIS 05/16/21 16:30 05/17/21 19:49 Quetiapine Fumarate (SEROquel) 50 mg QHS PO 05/16/21 21:00 05/19/21 12:13 DC 05/18/21 20:59 Tamsulosin HCl (Flomax) 0.4 mg DAILY PO 05/17/21 09:00 05/20/21 08:04 Artificial Tears (Refresh Classic) 1 drop PRN DAILY PRN OU DRY EYE 05/16/21 17:00 Multi-Ingredient Ointment (Analgesic [place]) 1 radha PRN QID PRN TP MUSCLE PAIN 05/16/21 16:45 Al Hydroxide/Mg Hydroxide (Mylanta Plus Xs) 15 ml PRN AFTMEALHC PRN PO DYSPEPSIA 05/16/21 16:45 Magnesium Hydroxide (Milk Of Magnesia) 2,400 mg PRN QHS PRN PO CONSTIPATION 05/16/21 16:45 Lactobacillus Rhamnosus (Culturelle) 1 cap BID PO 05/18/21 21:00 05/20/21 20:11 Mirtazapine (Remeron) 7.5 mg QHS PO 05/19/21 21:00 05/20/21 20:11 Sertraline HCl (Zoloft) 25 mg DAILY PO 05/20/21 09:00 05/20/21 08:04 Risperidone (RisperDAL) 0.5 mg QHS PO 05/19/21 21:00 05/20/21 20:11 Current Medications Medications (Trade) Dose Ordered Sig/Angy Route PRN Reason Start Time Stop Time Status Last Admin Dose Admin Sertraline HCl (Zoloft) 25 mg DAILY PO 05/20/21 09:00 05/20/21 08:04 I have reviewed the current psychotropics carefully including drug interactions. Risk benefit ratio favors no change other than as noted in my dictated progress note. 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
--- NOTE | 2021-05-21 00:12 | NUR ---
Nursing Note Pt up in hallway intermittently wandering with or without his walker and wheelchair. Very forgetful but easily redirected. Med compliant and cooperative.
[2021-05-21 06:22] VITALS: BP 165/82
[2021-05-21] MEDS: LACTOBACILLUS RHAMNOSUS GG 1 CAPSULE. PO SCH ×2 (08:57→20:03)
[2021-05-21] MEDS: TAMSULOSIN 0.4 MG CAP.ER.24H. PO SCH (08:57)
[2021-05-21] MEDS: levoFLOXacin 750 MG TABLET PO SCH (08:57)
[2021-05-21] MEDS: SERTRALINE 25 MG TABLET. PO SCH (08:57)
[2021-05-21] MEDS: amLODIPine BESYLATE 10 MG TABLET PO SCH (08:58)
--- NOTE | 2021-05-21 09:15 | PDOC ---
Exam Note: Ben Note: This note is a late entry for 05/18/2021 covers elements not covered in my initial note. Subjective: The patient was seen face to face in the evening of 05/18/2021 with Radha ENCINAS, discussed and reviewed the chart. The patient slept 7-3/4 hours previous night. He has been confused, pleasant, quiet, at times interactive and engaged. We will check CT head if not done recently given his mental status changes and history of normal pressure hydrocephalus. Review of Systems: Ambulation impaired in wheelchair. No CV, , pulmonary, eye system symptoms on review. Mental Status Exam: The patient is oriented to himself and situation, somewhat paranoid. Speech is coherent has some latency. Often responses are monosyllabic. Abstraction fair. Computation impaired. Language function intact. Attention span short. Mood and affect withdrawn. Laboratory Data: Reviewed. 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 Anxiety disorder, unspecified. Impulse control disorder, unspecified. Major depressive disorder. Plan: Continue current psychotropics. Assessment: Vital Signs/I&O: Vital Signs Date Time Temp Pulse Resp B/P (MAP) Pulse Ox O2 Delivery O2 Flow Rate FiO2 05/21/21 08:58 72 165/82 05/21/21 06:22 98.0 05/21/21 06:22 20 93 05/19/21 05:43 Room Air I & O 05/20/21 05/20/21 05/21/21 15:00 23:00 07:00 Intake Total 840 ml 600 ml Balance 840 ml 600 ml Current Medications: Meds: Current Medications Medications (Trade) Dose Ordered Sig/Angy Route PRN Reason Start Time Stop Time Status Last Admin Dose Admin Acetaminophen (Tylenol) 650 mg PRN Q4HRS PRN PO MILD PAIN / TEMP > 100.3'F 05/16/21 16:30 Amlodipine Besylate (Norvasc) 10 mg DAILY PO 05/17/21 09:00 05/21/21 08:58 Levofloxacin (Levaquin) 750 mg DAILY PO 05/17/21 09:00 05/21/21 21:00 05/21/21 08:57 Olanzapine (ZyPREXA ZYDIS) 5 mg PRN BID PRN PO PSYCHOSIS 05/16/21 16:30 05/20/21 23:14 Quetiapine Fumarate (SEROquel) 50 mg QHS PO 05/16/21 21:00 05/19/21 12:13 DC 05/18/21 20:59 Tamsulosin HCl (Flomax) 0.4 mg DAILY PO 05/17/21 09:00 05/21/21 08:57 Artificial Tears (Refresh Classic) 1 drop PRN DAILY PRN OU DRY EYE 05/16/21 17:00 Multi-Ingredient Ointment (Analgesic [place]) 1 radha PRN QID PRN TP MUSCLE PAIN 05/16/21 16:45 Al Hydroxide/Mg Hydroxide (Mylanta Plus Xs) 15 ml PRN AFTMEALHC PRN PO DYSPEPSIA 05/16/21 16:45 Magnesium Hydroxide (Milk Of Magnesia) 2,400 mg PRN QHS PRN PO CONSTIPATION 05/16/21 16:45 Lactobacillus Rhamnosus (Culturelle) 1 cap BID PO 05/18/21 21:00 05/21/21 08:57 Mirtazapine (Remeron) 7.5 mg QHS PO 05/19/21 21:00 05/20/21 20:11 Sertraline HCl (Zoloft) 25 mg DAILY PO 05/20/21 09:00 05/21/21 08:57 Risperidone (RisperDAL) 0.5 mg QHS PO 05/19/21 21:00 05/20/21 20:11 I have reviewed the current psychotropics carefully including drug interactions. Risk benefit ratio favors no change other than as noted in my dictated progress note. 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
--- NOTE | 2021-05-21 09:43 | PDOC ---
Exam Note: Ben Note: This note is a late entry for 05/19/2021 covers elements not covered in my initial note. Subjective: The patient was reviewed at treatment team meeting individually in the morning on 05/19/2021 with Kaylan Corcoran, Urvashi Mai (community mental health social worker), Fela, activity therapy and Cassius ENCINAS, discussed and reviewed the chart. The patient slept 4 hours previous night. Patient has been pleasant, aware of his name and date of . He was quite a bit confused, previous night. He pulled his Guillen out and we will monitor this clinically rather than replacing it for now. Appetite is fair. CT head shows no acute changes. Right parietal approach ventricular catheter terminating within the left lateral ventricle. Ventricles are prominent but within the limits for degree of volume loss. Bilateral white matter changes. Chronic small vessel disease. Review of Systems: Ambulation impaired in wheelchair. No CV, , pulmonary, eye system symptoms on review. Mental Status Exam: The patient is oriented to himself. Insight and judgment, recent and remote memory, attention and concentration, fund of knowledge is poor consistent with his diagnoses. Laboratory Data: Reviewed. 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 Anxiety disorder, unspecified. Impulse control disorder, unspecified. Major depressive disorder with psychotic features. Plan: Continue current psychotropics. Assessment: Vital Signs/I&O: Vital Signs Date Time Temp Pulse Resp B/P (MAP) Pulse Ox O2 Delivery O2 Flow Rate FiO2 05/21/21 08:58 72 165/82 05/21/21 06:22 98.0 05/21/21 06:22 20 93 05/19/21 05:43 Room Air I & O 05/20/21 05/20/21 05/21/21 15:00 23:00 07:00 Intake Total 840 ml 600 ml Balance 840 ml 600 ml Current Medications: Meds: Current Medications Medications (Trade) Dose Ordered Sig/Angy Route PRN Reason Start Time Stop Time Status Last Admin Dose Admin Acetaminophen (Tylenol) 650 mg PRN Q4HRS PRN PO MILD PAIN / TEMP > 100.3'F 05/16/21 16:30 Amlodipine Besylate (Norvasc) 10 mg DAILY PO 05/17/21 09:00 05/21/21 08:58 Levofloxacin (Levaquin) 750 mg DAILY PO 05/17/21 09:00 05/21/21 21:00 05/21/21 08:57 Olanzapine (ZyPREXA ZYDIS) 5 mg PRN BID PRN PO PSYCHOSIS 05/16/21 16:30 05/20/21 23:14 Quetiapine Fumarate (SEROquel) 50 mg QHS PO 05/16/21 21:00 05/19/21 12:13 DC 05/18/21 20:59 Tamsulosin HCl (Flomax) 0.4 mg DAILY PO 05/17/21 09:00 05/21/21 08:57 Artificial Tears (Refresh Classic) 1 drop PRN DAILY PRN OU DRY EYE 05/16/21 17:00 Multi-Ingredient Ointment (Analgesic [place]) 1 radha PRN QID PRN TP MUSCLE PAIN 05/16/21 16:45 Al Hydroxide/Mg Hydroxide (Mylanta Plus Xs) 15 ml PRN AFTMEALHC PRN PO DYSPEPSIA 05/16/21 16:45 Magnesium Hydroxide (Milk Of Magnesia) 2,400 mg PRN QHS PRN PO CONSTIPATION 05/16/21 16:45 Lactobacillus Rhamnosus (Culturelle) 1 cap BID PO 05/18/21 21:00 05/21/21 08:57 Mirtazapine (Remeron) 7.5 mg QHS PO 05/19/21 21:00 05/20/21 20:11 Sertraline HCl (Zoloft) 25 mg DAILY PO 05/20/21 09:00 05/21/21 08:57 Risperidone (RisperDAL) 0.5 mg QHS PO 05/19/21 21:00 05/20/21 20:11 I have reviewed the current psychotropics carefully including drug interactions. Risk benefit ratio favors no change other than as noted in my dictated progress note. 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
--- NOTE | 2021-05-21 10:36 | RAD ---
Bilateral Lower Extremity Venous Doppler: Reason for examination: The lower extremity venous systems bilaterally were evaluated from the common femoral and greater sap henous veins distally to the calf veins with grayscale imaging, color-flow imaging and spectral petros sis. There is normal blood flow without deep venous thrombosis in the right lower extremity. There is norm al response of the venous systems to compression and augmentation in the right lower extremity. Right mid to distal SFV is not optimally evaluated due to the mass in the right medial thigh better evalua jeffrey on the CT study. The left common femoral femoral and popliteal veins compress normally and have normal flow with color imaging and Doppler. There is incomplete compression of one posterior tibial vein on the left with e chogenic thrombus suggesting a segment of chronic venous thrombosis. There is some flow with augmenta tion. Impression: 1. No deep venous thrombosis in the right lower extremity venous systems. 2. Focus of venous thrombosis probably chronic in the left posterior tibial vein. 3. No other evidence of deep venous thrombosis in the left lower extremity. 4. 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 Electronically signed by: Brooks Ray MD (05/21/2021 10:34 AM) [facility]
--- NOTE | 2021-05-21 10:41 | PDOC ---
Exam Note: Ben Note: This note is a late entry for 05/20/2021 covers elements not covered in my initial note. Subjective: The patient was seen face to face in the evening of 05/20/2021 with Cassius ENCINAS, discussed and reviewed the chart. The patient slept 5-3/4 hours previous night. He has been calmer, remains confused. Family would like him be assessed for Parkinsons since he had presented diagnosis of this prior to admission. We will consult Dr. Montano Neurology for this. He has been voiding alright today despite having pulled out his Guillen. He was fixated that he was sitting on a bus that needed to take him home and he needed a ticket. Review of Systems: Ambulation impaired in wheelchair. No CV, , pulmonary, eye system symptoms on review. Reliability poor. Mental Status Exam: The patient is oriented to himself and situation. Insight and judgment, recent and remote memory, attention and concentration, fund of knowledge is poor consistent with his diagnoses. Laboratory Data: Reviewed. 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 Anxiety disorder, unspecified. Impulse control disorder, unspecified. Major depressive disorder. Plan: Continue current psychotropics. Assessment: Vital Signs/I&O: Vital Signs Date Time Temp Pulse Resp B/P (MAP) Pulse Ox O2 Delivery O2 Flow Rate FiO2 05/21/21 08:58 72 165/82 05/21/21 06:22 98.0 05/21/21 06:22 20 93 05/19/21 05:43 Room Air I & O0 05/20/21 05/20/21 05/21/21 15:00 23:00 07:00 Intake Total 840 ml 600 ml Balance 840 ml 600 ml Current Medications: Meds: Current Medications Medications (Trade) Dose Ordered Sig/Angy Route PRN Reason Start Time Stop Time Status Last Admin Dose Admin Acetaminophen (Tylenol) 650 mg PRN Q4HRS PRN PO MILD PAIN / TEMP > 100.3'F 05/16/21 16:30 Amlodipine Besylate (Norvasc) 10 mg DAILY PO 05/17/21 09:00 05/21/21 08:58 Levofloxacin (Levaquin) 750 mg DAILY PO 05/17/21 09:00 05/21/21 21:00 05/21/21 08:57 Olanzapine (ZyPREXA ZYDIS) 5 mg PRN BID PRN PO PSYCHOSIS 05/16/21 16:30 05/20/21 23:14 Quetiapine Fumarate (SEROquel) 50 mg QHS PO 05/16/21 21:00 05/19/21 12:13 DC 05/18/21 20:59 Tamsulosin HCl (Flomax) 0.4 mg DAILY PO 05/17/21 09:00 05/21/21 08:57 Artificial Tears (Refresh Classic) 1 drop PRN DAILY PRN OU DRY EYE 05/16/21 17:00 Multi-Ingredient Ointment (Analgesic [place]) 1 radha PRN QID PRN TP MUSCLE PAIN 05/16/21 16:45 Al Hydroxide/Mg Hydroxide (Mylanta Plus Xs) 15 ml PRN AFTMEALHC PRN PO DYSPEPSIA 05/16/21 16:45 Magnesium Hydroxide (Milk Of Magnesia) 2,400 mg PRN QHS PRN PO CONSTIPATION 05/16/21 16:45 Lactobacillus Rhamnosus (Culturelle) 1 cap BID PO 05/18/21 21:00 05/21/21 08:57 Mirtazapine (Remeron) 7.5 mg QHS PO 05/19/21 21:00 05/20/21 20:11 Sertraline HCl (Zoloft) 25 mg DAILY PO 05/20/21 09:00 05/21/21 08:57 Risperidone (RisperDAL) 0.5 mg QHS PO 05/19/21 21:00 05/20/21 20:11 Carbidopa/Levodopa (Sinemet 25/100) 1 tab BID PO 05/21/21 21:00 UNV I have reviewed the current psychotropics carefully including drug interactions. Risk benefit ratio favors no change other than as noted in my dictated progress note. 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
--- NOTE | 2021-05-21 13:02 | NUR ---
Pt has been calm, cooperative, and medication compliant. Pt. is pleasantly confused and wheels around the unit in his wheelchair. Pt was seen by Dr. Montano this morning who advised he be evaluated for physical therapy and made some medication changes. Pt has been eating well and continues to visit with others on the unit.
--- NOTE | 2021-05-21 13:20 | NUR ---
ANDERS completed pt concurrent review with [employer] front desk representative. According to the information provided, pt case will go peer to peer. SW to notify the psychiatrist, the team and pt niece of pt peer to peer status.
--- NOTE | 2021-05-21 14:28 | NUR ---
ANDERS spoke with pt niece, Nhung, to let her know about pt concurrent review. Despite all the information provided, the event sales representative did not feel pt met criteria to stay and said the case would go peer to peer. ANDERS educated pt niece on what the peer to peer process looks like and discussed the downfall of Advantage Plans and whether or not the criteria meets the pt needs at the time. Nhung is concerned as to what to do as pt does not stay in the house and was noted that if he continues to have troubles, they will have to call the state hotline. ANDERS recommended that pt niece start looking into setting up caregiver services and further search for Memory Care facilities that may be able to take pt sooner than later.
[2021-05-21 15:46] VITALS: BP 116/62
--- NOTE | 2021-05-21 16:15 | NUR ---
ANDERS contacted pt rosita to inform her that the peer to peer was denied; therefore, pt will either have to discharge or the family can request an appeal. Nhung would like for the appeal to be requested as she still is searching for placement and does not feel being at home is the safest plan. Nhung questioned how Medicare can do this and ANDERS explained again the difference between Medicare and Advantage plans. Pt plan is overseen via [facility] NOT Medicare. ANDERS let Nhung know that ANDERS would be able to submit all information and could let her know once a decision is made by [facility].
--- NOTE | 2021-05-21 16:52 | NUR ---
Pt has been wandering through the unit in his wheelchair. Nurse noticed he was going into another pt's room and redirected him. Pt put his foot in the door and stated that he needed to go in to help the lady, nurse let pt know that it was not his room and that no one in that room needed his help, he backed up he wheelchair and moved on to his room. Pt later told nurse that he needed "that little girl" to move and he was pointing to a pair of shoes on the ground. Pt was re-directed easily and continued to sit in the hallway. Pt had a doppler done on his L leg due to his D-Dimer being elevated. Results are waiting to be reviewed by Dr. Gutierrez. Pt was also seen this morning by Neurologist Dr. Montano who prescribed Sinemet BID and put in an order for PT consult. It was reported that pt was up wandering the unit all night throughout the night and did not receive any sleep. Any time staff would help him back to bed, he would immediately get back up and start to roam the unit. Dr. Lopez ordered Trazodone 50mg PRN QHS to help with insomnia and increased Remeron to 15mg
[2021-05-21] MEDS: CARBIDOPA/LEVODOPA 25/100MG TABLET PO SCH (20:03)
[2021-05-21] MEDS: MIRTAZAPINE 15 MG TABLET PO SCH (20:03)
[2021-05-21] MEDS: risperiDONE 0.5 MG TABLET. PO SCH (20:03)
--- NOTE | 2021-05-21 21:53 | NUR ---
Nursing Note Pt is combative hitting, kicking and punching attempting to stomp on staff feet, threatening to kill staff, states "I know you put those 3 men in [facility] you stupid bitch, this is all your fault, you will burn in hell and I will sit back and laugh!!" Pt put himself on the floor, is unable to get back to a standing or sitting position without help. When help is offered, he punches staff, and hits staff with his shoes he has removed. He attempted to hit staff with his walker which was to his left, when taken from him he quickly reached for the walker leg and ripped off the cap, and threw it at staff attempting to hit them in the eye, "I will put your eye out you asshole!". Pt delusional and paranoid "You are all accomplices, you have robbed your in-laws of all their money, and property, I will put a contract out on you!" Continues to roll around on the floor making angry remarks and threatening our lives intermittently. He is delusional thinking that we are his employees and he just fired us all "You have all lost your jobs for life, I will make sure you never work again in this business!!" Addendum: 05/21/21 at 2204 by PAMELA CARDOSO RN Continued. This is in sharp contrast to his pleasant demeanor last PM. He didn't sleep last pm, even with Zydis given, but he was redirectable, pleasant and cooperative last night. No agitation on the previous night. Now he is very difficult to manage and is violent to staff and peers. Mio Weberis given with a small amount of water.
--- NOTE | 2021-05-21 21:59 | PDOC ---
Exam Note: Ben Note: Please also refer to the separate dictated note~for this date of service dictated separately.~Patient seen individually. Discussed the patient with Nursing staff reviewed the chart.~Reviewed interim history and current functioning. Reviewed vital signs,~Labs/ Radiology~and current medications noted below. Continue current treatment with the changes noted in the dictated addendum note Assessment: Vital Signs/I&O: Vital Signs Date Time Temp Pulse Resp B/P (MAP) Pulse Ox O2 Delivery O2 Flow Rate FiO2 05/21/21 15:46 97.1 71 20 116/62 (80) 95 05/19/21 05:43 Room Air I & O 05/20/21 05/20/21 05/21/21 15:00 23:00 07:00 Intake Total 840 ml 600 ml Balance 840 ml 600 ml Labs: Laboratory Tests Test 05/21/21 11:05 SARS-CoV-2 (PCR) Negative (NEGATIVE) Current Medications: Meds: Laboratory Tests Test 05/21/21 11:05 Coronavirus (COVID-19)(PCR) Negative Current Medications Medications (Trade) Dose Ordered Sig/Angy Route PRN Reason Start Time Stop Time Status Last Admin Dose Admin Acetaminophen (Tylenol) 650 mg PRN Q4HRS PRN PO MILD PAIN / TEMP > 100.3'F 05/16/21 16:30 Amlodipine Besylate (Norvasc) 10 mg DAILY PO 05/17/21 09:00 05/21/21 08:58 Levofloxacin (Levaquin) 750 mg DAILY PO 05/17/21 09:00 05/21/21 21:00 DC 05/21/21 08:57 Olanzapine (ZyPREXA ZYDIS) 5 mg PRN BID PRN PO PSYCHOSIS 05/16/21 16:30 05/20/21 23:14 Quetiapine Fumarate (SEROquel) 50 mg QHS PO 05/16/21 21:00 05/19/21 12:13 DC 05/18/21 20:59 Tamsulosin HCl (Flomax) 0.4 mg DAILY PO 05/17/21 09:00 05/21/21 08:57 Artificial Tears (Refresh Classic) 1 drop PRN DAILY PRN OU DRY EYE 05/16/21 17:00 Multi-Ingredient Ointment (Analgesic [place]) 1 radha PRN QID PRN TP MUSCLE PAIN 05/16/21 16:45 Al Hydroxide/Mg Hydroxide (Mylanta Plus Xs) 15 ml PRN AFTMEALHC PRN PO DYSPEPSIA 05/16/21 16:45 Magnesium Hydroxide (Milk Of Magnesia) 2,400 mg PRN QHS PRN PO CONSTIPATION 05/16/21 16:45 Lactobacillus Rhamnosus (Culturelle) 1 cap BID PO 05/18/21 21:00 05/21/21 20:03 Mirtazapine (Remeron) 7.5 mg QHS PO 05/19/21 21:00 05/21/21 16:17 DC 05/20/21 20:11 Sertraline HCl (Zoloft) 25 mg DAILY PO 05/20/21 09:00 05/21/21 08:57 Risperidone (RisperDAL) 0.5 mg QHS PO 05/19/21 21:00 05/21/21 20:03 Carbidopa/Levodopa (Sinemet 25/100) 1 tab BID PO 05/21/21 21:00 05/21/21 20:03 Mirtazapine (Remeron) 15 mg QHS PO 05/21/21 21:00 05/21/21 20:03 Trazodone HCl (Desyrel) 50 mg PRN QHS PRN PO insomnia 05/21/21 16:15 Current Medications Medications (Trade) Dose Ordered Sig/Angy Route PRN Reason Start Time Stop Time Status Last Admin Dose Admin Carbidopa/Levodopa (Sinemet 25/100) 1 tab BID PO 05/21/21 21:00 05/21/21 20:03 Mirtazapine (Remeron) 15 mg QHS PO 05/21/21 21:00 05/21/21 20:03 I have reviewed the current psychotropics carefully including drug interactions. Risk benefit ratio favors no change other than as noted in my dictated progress note. 

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
[2021-05-21] MEDS ORDERED: LORazepam INTENSOL 2 MG/ML BOTTLE SL PRN (23:15)
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
[2021-05-21] MEDS: traZODone 50 MG TABLET. PO PRN (23:27)
[2021-05-21 23:40] VITALS: BP 116/62
--- NOTE | 2021-05-22 00:59 | NUR ---
Nursing Note A total of 5 mg Zyprexa given and 50 of trazodone. Pt continued to be highly combative, delusional and paranoid of all staff. assisted him back to bed with help X3. Pt resistive to getting help, angry and irritable. Tries to swat at staff and grabs at their pants legs and shoes while we are trying to tuck him into the blankets. Pt now sleeping.
[2021-05-22 05:26] VITALS: BP 148/72
[2021-05-22] MEDS: amLODIPine BESYLATE 10 MG TABLET PO SCH (08:23)
[2021-05-22] MEDS: CARBIDOPA/LEVODOPA 25/100MG TABLET PO SCH ×2 (08:23→20:19)
[2021-05-22] MEDS: TAMSULOSIN 0.4 MG CAP.ER.24H. PO SCH (08:23)
[2021-05-22] MEDS: LACTOBACILLUS RHAMNOSUS GG 1 CAPSULE. PO SCH ×2 (08:23→20:18)
[2021-05-22] MEDS: SERTRALINE 25 MG TABLET. PO SCH (08:23)
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
--- NOTE | 2021-05-22 09:10 | NUR ---
ANDERS submitted to the expedited appeal fax for [employer] on pt case, which was denied after completion of the Peer to peer. SW to continue to keep pt family updated and await for the answer on the expedited appeal.
--- NOTE | 2021-05-22 11:54 | NUR ---
Pt confused and disorganized this morning. Absent of SI/HI/VH/AH/delusions at this time. He appears calm and withdrawn. Absent of verbal/physical aggression at this time. He is compliant with whole medications. Pt appears to recall no memory of the events from last night. Plan of care continues, will pass to next shift.
[2021-05-22 16:22] VITALS: BP 117/66
[2021-05-22] MEDS: MIRTAZAPINE 15 MG TABLET PO SCH (20:18)
[2021-05-22] MEDS: traZODone 50 MG TABLET. PO PRN ×2 (20:18→23:00)
[2021-05-22] MEDS: risperiDONE 0.5 MG TABLET. PO SCH (20:19)
--- NOTE | 2021-05-22 22:01 | PDOC ---
Exam Note: Ben Note: Please also refer to the separate dictated note~for this date of service dictated separately.~Patient seen individually. Discussed the patient with Nursing staff reviewed the chart.~Reviewed interim history and current functioning. Reviewed vital signs,~Labs/ Radiology~and current medications noted below. Continue current treatment with the changes noted in the dictated addendum note Assessment: Vital Signs/I&O: Vital Signs Date Time Temp Pulse Resp B/P (MAP) Pulse Ox O2 Delivery O2 Flow Rate FiO2 05/22/21 16:22 97.9 56 16 117/66 (83) 97 05/19/21 05:43 Room Air I & O 05/21/21 05/21/21 05/22/21 15:00 23:00 07:00 Intake Total 720 ml 420 ml Balance 720 ml 420 ml Current Medications: Meds: Current Medications Medications (Trade) Dose Ordered Sig/Angy Route PRN Reason Start Time Stop Time Status Last Admin Dose Admin Acetaminophen (Tylenol) 650 mg PRN Q4HRS PRN PO MILD PAIN / TEMP > 100.3'F 05/16/21 16:30 Amlodipine Besylate (Norvasc) 10 mg DAILY PO 05/17/21 09:00 05/22/21 08:23 Levofloxacin (Levaquin) 750 mg DAILY PO 05/17/21 09:00 05/21/21 21:00 DC 05/21/21 08:57 Olanzapine (ZyPREXA ZYDIS) 5 mg PRN BID PRN PO PSYCHOSIS 05/16/21 16:30 05/21/21 22:40 Quetiapine Fumarate (SEROquel) 50 mg QHS PO 05/16/21 21:00 05/19/21 12:13 DC 05/18/21 20:59 Tamsulosin HCl (Flomax) 0.4 mg DAILY PO 05/17/21 09:00 05/22/21 08:23 Artificial Tears (Refresh Classic) 1 drop PRN DAILY PRN OU DRY EYE 05/16/21 17:00 Multi-Ingredient Ointment (Analgesic [place]) 1 radha PRN QID PRN TP MUSCLE PAIN 05/16/21 16:45 Al Hydroxide/Mg Hydroxide (Mylanta Plus Xs) 15 ml PRN AFTMEALHC PRN PO DYSPEPSIA 05/16/21 16:45 Magnesium Hydroxide (Milk Of Magnesia) 2,400 mg PRN QHS PRN PO CONSTIPATION 05/16/21 16:45 Lactobacillus Rhamnosus (Culturelle) 1 cap BID PO 05/18/21 21:00 05/22/21 20:18 Mirtazapine (Remeron) 7.5 mg QHS PO 05/19/21 21:00 05/21/21 16:17 DC 05/20/21 20:11 Sertraline HCl (Zoloft) 25 mg DAILY PO 05/20/21 09:00 05/22/21 08:23 Risperidone (RisperDAL) 0.5 mg QHS PO 05/19/21 21:00 05/22/21 20:19 Carbidopa/Levodopa (Sinemet 25/100) 1 tab BID PO 05/21/21 21:00 05/22/21 20:19 Mirtazapine (Remeron) 15 mg QHS PO 05/21/21 21:00 05/22/21 20:18 Trazodone HCl (Desyrel) 50 mg PRN QHS PRN PO INSOMNIA, MAY REPEAT X1 05/21/21 16:15 05/22/21 20:18 Lorazepam (Ativan Intensol) 0.5 mg PRN Q1HR PRN SL ANXIETY / AGITATION 05/21/21 23:15 I have reviewed the current psychotropics carefully including drug interactions. Risk benefit ratio favors no change other than as noted in my dictated progress note. 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
--- NOTE | 2021-05-23 03:34 | NUR ---
Nursing Note The patient was located in the hallway and in his room this shift. The patient was very disorganized and was alert to self only. The patient was compliant with his medication and took them whole. The patient was restless and displaying increased agitation at HS and was given PRN Trazodone per PRN order. The patient later in the shift awoke again and was again agitated and restless and a repeat dose of Trazodone as well as a Zyprexa was given per PRN order. The patient is currently sleeping in his room.
[2021-05-23 06:10] VITALS: BP 132/63
[2021-05-23] MEDS: TAMSULOSIN 0.4 MG CAP.ER.24H. PO SCH (08:01)
[2021-05-23] MEDS: LACTOBACILLUS RHAMNOSUS GG 1 CAPSULE. PO SCH ×2 (08:01→20:23)
[2021-05-23] MEDS: CARBIDOPA/LEVODOPA 25/100MG TABLET PO SCH ×2 (08:02→20:23)
[2021-05-23] MEDS: SERTRALINE 25 MG TABLET. PO SCH (08:02)
[2021-05-23] MEDS: amLODIPine BESYLATE 10 MG TABLET PO SCH (08:02)
--- NOTE | 2021-05-23 09:56 | PDOC ---
Exam Note: Ben Note: This note is a late entry for 05/21/2021 covers elements not covered in my initial note. Subjective: The patient was seen face to face in the evening of 05/21/2021 with Aime ENCINAS, discussed and reviewed the chart. The patient did not sleep at all previous night. He has been having intermittent hallucinations. Earlier in the day he was doing better. He remained confused but towards the evening he was agitated, paranoid, stated he was driving a car, looking for a bus amongst other things. Also had peer review with patients [facility] psychiatrist Dr. Guido. The patient does need placement. Nevertheless, noted late evening of 05/21, he has been quite psychotic and agitated, disruptive, and we will have to stabilize this inpatient before transitioning to a placement. Review of Systems: Ambulation impaired in wheelchair. No CV, , pulmonary, eye system symptoms on review. Mental Status Exam: The patient is oriented to himself and situation. Insight and judgment, recent and remote memory, attention and concentration, fund of knowledge is poor consistent with his diagnoses. Laboratory Data: Reviewed. 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 Anxiety disorder, unspecified. Impulse control disorder, unspecified. Major depressive disorder. Plan: Continue current psychotropics. We will increase Remeron to 15 mg h.s. to help with insomnia. Add trazodone 50 mg h.s. p.r.n. insomnia. Rest unchanged for now. Assessment: Vital Signs/I&O: Vital Signs Date Time Temp Pulse Resp B/P (MAP) Pulse Ox O2 Delivery O2 Flow Rate FiO2 05/23/21 08:02 63 132/63 05/23/21 06:10 98.1 16 95 05/19/21 05:43 Room Air I & O 05/22/21 05/22/21 05/23/21 15:00 23:00 07:00 Intake Total 360 ml 360 ml Balance 360 ml 360 ml Current Medications: Meds: Current Medications Medications (Trade) Dose Ordered Sig/Angy Route PRN Reason Start Time Stop Time Status Last Admin Dose Admin Acetaminophen (Tylenol) 650 mg PRN Q4HRS PRN PO MILD PAIN / TEMP > 100.3'F 05/16/21 16:30 Amlodipine Besylate (Norvasc) 10 mg DAILY PO 05/17/21 09:00 05/23/21 08:02 Levofloxacin (Levaquin) 750 mg DAILY PO 05/17/21 09:00 05/21/21 21:00 DC 05/21/21 08:57 Olanzapine (ZyPREXA ZYDIS) 5 mg PRN BID PRN PO PSYCHOSIS 05/16/21 16:30 05/22/21 23:00 Quetiapine Fumarate (SEROquel) 50 mg QHS PO 05/16/21 21:00 05/19/21 12:13 DC 05/18/21 20:59 Tamsulosin HCl (Flomax) 0.4 mg DAILY PO 05/17/21 09:00 05/23/21 08:01 Artificial Tears (Refresh Classic) 1 drop PRN DAILY PRN OU DRY EYE 05/16/21 17:00 Multi-Ingredient Ointment (Analgesic [place]) 1 radha PRN QID PRN TP MUSCLE PAIN 05/16/21 16:45 Al Hydroxide/Mg Hydroxide (Mylanta Plus Xs) 15 ml PRN AFTMEALHC PRN PO DYSPEPSIA 05/16/21 16:45 Magnesium Hydroxide (Milk Of Magnesia) 2,400 mg PRN QHS PRN PO CONSTIPATION 05/16/21 16:45 Lactobacillus Rhamnosus (Culturelle) 1 cap BID PO 05/18/21 21:00 05/23/21 08:01 Mirtazapine (Remeron) 7.5 mg QHS PO 05/19/21 21:00 05/21/21 16:17 DC 05/20/21 20:11 Sertraline HCl (Zoloft) 25 mg DAILY PO 05/20/21 09:00 05/23/21 08:02 Risperidone (RisperDAL) 0.5 mg QHS PO 05/19/21 21:00 05/22/21 20:19 Carbidopa/Levodopa (Sinemet 25/100) 1 tab BID PO 05/21/21 21:00 05/23/21 08:02 Mirtazapine (Remeron) 15 mg QHS PO 05/21/21 21:00 05/22/21 20:18 Trazodone HCl (Desyrel) 50 mg PRN QHS PRN PO INSOMNIA, MAY REPEAT X1 9/1/21 16:15 05/22/21 23:00 Lorazepam (Ativan Intensol) 0.5 mg PRN Q1HR PRN SL ANXIETY / AGITATION 05/21/21 23:15 I have reviewed the current psychotropics carefully including drug interactions. Risk benefit ratio favors no change other than as noted in my dictated progress note. 

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
--- NOTE | 2021-05-23 11:20 | NUR ---
Nurse Note Patient alert to self, confused and disorganized. Patient ambulates in hallway and room with walker, feeds self, assist with ADLs.. Patient is compliant with medication takes them whole. Physical therapy working with patient.No behaviors noted at this time.
[2021-05-23 16:37] VITALS: BP 137/75
[2021-05-23] MEDS: risperiDONE 0.5 MG TABLET. PO SCH (20:22)
[2021-05-23] MEDS: MIRTAZAPINE 15 MG TABLET PO SCH (20:23)
[2021-05-23] MEDS: traZODone 50 MG TABLET. PO PRN (20:23)
--- NOTE | 2021-05-23 22:10 | PDOC ---
Exam Note: Ben Note: Please also refer to the separate dictated note~for this date of service dictated separately.~Patient seen individually. Discussed the patient with Nursing staff reviewed the chart.~Reviewed interim history and current functioning. Reviewed vital signs,~Labs/ Radiology~and current medications noted below. Continue current treatment with the changes noted in the dictated addendum note Assessment: Vital Signs/I&O: Vital Signs Date Time Temp Pulse Resp B/P (MAP) Pulse Ox O2 Delivery O2 Flow Rate FiO2 05/23/21 16:37 98.4 59 16 137/75 (95) 98 05/19/21 05:43 Room Air I & O 05/22/21 05/22/21 05/23/21 15:00 23:00 07:00 Intake Total 360 ml 360 ml Balance 360 ml 360 ml Current Medications: Meds: Current Medications Medications (Trade) Dose Ordered Sig/Angy Route PRN Reason Start Time Stop Time Status Last Admin Dose Admin Acetaminophen (Tylenol) 650 mg PRN Q4HRS PRN PO MILD PAIN / TEMP > 100.3'F 05/16/21 16:30 Amlodipine Besylate (Norvasc) 10 mg DAILY PO 05/17/21 09:00 05/23/21 08:02 Levofloxacin (Levaquin) 750 mg DAILY PO 05/17/21 09:00 05/21/21 21:00 DC 05/21/21 08:57 Olanzapine (ZyPREXA ZYDIS) 5 mg PRN BID PRN PO PSYCHOSIS 05/16/21 16:30 05/22/21 23:00 Quetiapine Fumarate (SEROquel) 50 mg QHS PO 05/16/21 21:00 05/19/21 12:13 DC 05/18/21 20:59 Tamsulosin HCl (Flomax) 0.4 mg DAILY PO 05/17/21 09:00 05/23/21 08:01 Artificial Tears (Refresh Classic) 1 drop PRN DAILY PRN OU DRY EYE 05/16/21 17:00 Multi-Ingredient Ointment (Analgesic [place]) 1 radha PRN QID PRN TP MUSCLE PAIN 05/16/21 16:45 Al Hydroxide/Mg Hydroxide (Mylanta Plus Xs) 15 ml PRN AFTMEALHC PRN PO DYSPEPSIA 05/16/21 16:45 Magnesium Hydroxide (Milk Of Magnesia) 2,400 mg PRN QHS PRN PO CONSTIPATION 05/16/21 16:45 Lactobacillus Rhamnosus (Culturelle) 1 cap BID PO 05/18/21 21:00 05/23/21 20:23 Mirtazapine (Remeron) 7.5 mg QHS PO 05/19/21 21:00 05/21/21 16:17 DC 05/20/21 20:11 Sertraline HCl (Zoloft) 25 mg DAILY PO 05/20/21 09:00 05/23/21 08:02 Risperidone (RisperDAL) 0.5 mg QHS PO 05/19/21 21:00 05/23/21 20:22 Carbidopa/Levodopa (Sinemet 25/100) 1 tab BID PO 05/21/21 21:00 05/23/21 20:23 Mirtazapine (Remeron) 15 mg QHS PO 05/21/21 21:00 05/23/21 20:23 Trazodone HCl (Desyrel) 50 mg PRN QHS PRN PO INSOMNIA, MAY REPEAT X1 05/21/21 16:15 05/23/21 20:23 Lorazepam (Ativan Intensol) 0.5 mg PRN Q1HR PRN SL ANXIETY / AGITATION 05/21/21 23:15 I have reviewed the current psychotropics carefully including drug interactions. Risk benefit ratio favors no change other than as noted in my dictated progress note. 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
--- NOTE | 2021-05-23 23:15 | NUR ---
Patient sitting in a chair outside his room on assumption of care. He is in pleasant spirits this evening, no agitation. Alert to self only, confused, disorganized. Compliant with assessments and medications whole. PRN Trazodone given with HS meds due to poor sleep on previous nights. No delusions voiced so far this shift. He appears to be sleeping comfortably at present time. Will continue to monitor.
[2021-05-24 06:14] VITALS: BP 155/77
[2021-05-24 08:35] LABS: BASO # 0.2 x10^3/uL (0.0-0.2); BASO % 2 % (0-3); EOS # 0.2 x10^3/uL (0.0-0.7); EOS % 2 % (0-3); HEMATOCRIT 33.2 % (39.0-53.0); HEMOGLOBIN 10.9 g/dL (13.0-17.5); LYMPH % 21 % (24-48); MEAN CORPUSCULAR HEMOGLOBIN 30 pg (25-35); MEAN CORPUSCULAR HGB CONC 33 g/dL (31-37); MEAN CORPUSCULAR VOLUME 92 fL (79-100); MONO % 11 % (0-9); NEUT # 6.2 x10^3uL (1.8-7.7); NEUT % 64 % (31-73); PLATELET COUNT 304 x10^3/uL (140-400); RED BLOOD COUNT 3.61 x10^6/uL (4.30-5.70); RED CELL DISTRIBUTION WIDTH 14.7 % (11.5-14.5); WHITE BLOOD COUNT 9.7 x10^3/uL (4.0-11.0)
[2021-05-24] MEDS: SERTRALINE 25 MG TABLET. PO SCH (08:36)
[2021-05-24] MEDS: LACTOBACILLUS RHAMNOSUS GG 1 CAPSULE. PO SCH ×2 (08:36→20:16)
[2021-05-24] MEDS: CARBIDOPA/LEVODOPA 25/100MG TABLET PO SCH ×2 (08:36→20:16)
[2021-05-24] MEDS: TAMSULOSIN 0.4 MG CAP.ER.24H. PO SCH (08:37)
[2021-05-24] MEDS: amLODIPine BESYLATE 10 MG TABLET PO SCH (08:37)
[2021-05-24 08:46] LABS: ALBUMIN 2.7 g/dL (3.4-5.0); ALBUMIN/GLOBULIN RATIO 0.9 (1.0-1.7); CALCIUM 7.9 mg/dL (8.5-10.1); CREATININE 1.1 mg/dL (0.7-1.3); GFR 64.2; POTASSIUM 3.5 mmol/L (3.5-5.1); TOTAL BILIRUBIN 0.4 mg/dL (0.2-1.0); TOTAL PROTEIN 5.6 g/dL (6.4-8.2)
[2021-05-24 15:40] VITALS: BP 129/57
--- NOTE | 2021-05-24 17:33 | NUR ---
Nurse Note: Patient in hallway for medication & assessment, meds taken whole. He is alert to self, confused and disorganized. Patient ambulates independently in hallway and room with walker, feeds self, assist with ADLs. He is currently eating dinner. Will continue to monitor.
[2021-05-24] MEDS: risperiDONE 0.5 MG TABLET. PO SCH (20:15)
[2021-05-24] MEDS: traZODone 50 MG TABLET. PO PRN (20:16)
[2021-05-24] MEDS: MIRTAZAPINE 15 MG TABLET PO SCH (20:16)
--- NOTE | 2021-05-24 22:05 | PDOC ---
Exam Note: Ben Note: Please also refer to the separate dictated note~for this date of service dictated separately.~Patient seen individually. Discussed the patient with Nursing staff reviewed the chart.~Reviewed interim history and current functioning. Reviewed vital signs,~Labs/ Radiology~and current medications noted below. Continue current treatment with the changes noted in the dictated addendum note Assessment: Vital Signs/I&O: Vital Signs Date Time Temp Pulse Resp B/P (MAP) Pulse Ox O2 Delivery O2 Flow Rate FiO2 05/24/21 15:40 98.0 60 20 129/57 (81) 95 05/19/21 05:43 Room Air I & O 05/23/21 05/23/21 05/24/21 15:00 23:00 07:00 Intake Total 720 ml 480 ml Balance 720 ml 480 ml Labs: Laboratory Tests Test 05/24/21 07:50 White Blood Count 9.7 x10^3/uL (4.0-11.0) Red Blood Count 3.61 x10^6/uL (4.30-5.70) L Hemoglobin 10.9 g/dL (13.0-17.5) L Hematocrit 33.2 % (39.0-53.0) L Mean Corpuscular Volume 92 fL (79-100) Mean Corpuscular Hemoglobin 30 pg (25-35) Mean Corpuscular Hemoglobin Concent 33 g/dL (31-37) Red Cell Distribution Width 14.7 % (11.5-14.5) H Platelet Count 304 x10^3/uL (140-400) Neutrophils (%) (Auto) 64 % (31-73) Lymphocytes (%) (Auto) 21 % (24-48) L Monocytes (%) (Auto) 11 % (0-9) H Eosinophils (%) (Auto) 2 % (0-3) Basophils (%) (Auto) 2 % (0-3) Neutrophils # (Auto) 6.2 x10^3uL (1.8-7.7) Lymphocytes # (Auto) 2.0 x10^3/uL (1.0-4.8) Monocytes # (Auto) 1.0 x10^3/uL (0.0-1.1) Eosinophils # (Auto) 0.2 x10^3/uL (0.0-0.7) Basophils # (Auto) 0.2 x10^3/uL (0.0-0.2) Sodium Level 143 mmol/L (136-145) Potassium Level 3.5 mmol/L (3.5-5.1) Chloride Level 108 mmol/L (98-107) H Carbon Dioxide Level 27 mmol/L (21-32) Anion Gap 8 (6-14) Blood Urea Nitrogen 22 mg/dL (8-26) Creatinine 1.1 mg/dL (0.7-1.3) Estimated GFR (Cockcroft-Gault) 64.2 BUN/Creatinine Ratio 20 (6-20) Glucose Level 96 mg/dL (70-99) Calcium Level 7.9 mg/dL (8.5-10.1) L Total Bilirubin 0.4 mg/dL (0.2-1.0) Aspartate Amino Transferase (AST) 20 U/L (15-37) Alanine Aminotransferase (ALT) 20 U/L (16-63) Alkaline Phosphatase 84 U/L (46-116) Total Protein 5.6 g/dL (6.4-8.2) L Albumin 2.7 g/dL (3.4-5.0) L Albumin/Globulin Ratio 0.9 (1.0-1.7) L Current Medications: Meds: Laboratory Tests Test 05/24/21 07:50 White Blood Count 9.7 x10^3/uL Red Blood Count 3.61 x10^6/uL Hemoglobin 10.9 g/dL Hematocrit 33.2 % Mean Corpuscular Volume 92 fL Mean Corpuscular Hemoglobin 30 pg Mean Corpuscular Hemoglobin Concent 33 g/dL Red Cell Distribution Width 14.7 % Platelet Count 304 x10^3/uL Neutrophils (%) (Auto) 64 % Lymphocytes (%) (Auto) 21 % Monocytes (%) (Auto) 11 % Eosinophils (%) (Auto) 2 % Basophils (%) (Auto) 2 % Neutrophils # (Auto) 6.2 x10^3uL Lymphocytes # (Auto) 2.0 x10^3/uL Monocytes # (Auto) 1.0 x10^3/uL Eosinophils # (Auto) 0.2 x10^3/uL Basophils # (Auto) 0.2 x10^3/uL Sodium Level 143 mmol/L Potassium Level 3.5 mmol/L Chloride Level 108 mmol/L Carbon Dioxide Level 27 mmol/L Anion Gap 8 Blood Urea Nitrogen 22 mg/dL Creatinine 1.1 mg/dL Estimated GFR (Cockcroft-Gault) 64.2 BUN/Creatinine Ratio 20 Glucose Level 96 mg/dL Calcium Level 7.9 mg/dL Total Bilirubin 0.4 mg/dL Aspartate Amino Transf (AST/SGOT) 20 U/L Alanine Aminotransferase (ALT/SGPT) 20 U/L Alkaline Phosphatase 84 U/L Total Protein 5.6 g/dL Albumin 2.7 g/dL Albumin/Globulin Ratio 0.9 Current Medications Medications (Trade) Dose Ordered Sig/Angy Route PRN Reason Start Time Stop Time Status Last Admin Dose Admin Acetaminophen (Tylenol) 650 mg PRN Q4HRS PRN PO MILD PAIN / TEMP > 100.3'F 05/16/21 16:30 Amlodipine Besylate (Norvasc) 10 mg DAILY PO 05/17/21 09:00 05/24/21 08:37 Levofloxacin (Levaquin) 750 mg DAILY PO 05/17/21 09:00 05/21/21 21:00 DC 05/21/21 08:57 Olanzapine (ZyPREXA ZYDIS) 5 mg PRN BID PRN PO PSYCHOSIS 05/16/21 16:30 05/22/21 23:00 Quetiapine Fumarate (SEROquel) 50 mg QHS PO 05/16/21 21:00 05/19/21 12:13 DC 05/18/21 20:59 Tamsulosin HCl (Flomax) 0.4 mg DAILY PO 05/17/21 09:00 05/24/21 08:37 Artificial Tears (Refresh Classic) 1 drop PRN DAILY PRN OU DRY EYE 05/16/21 17:00 Multi-Ingredient Ointment (Analgesic [place]) 1 radha PRN QID PRN TP MUSCLE PAIN 05/16/21 16:45 Al Hydroxide/Mg Hydroxide (Mylanta Plus Xs) 15 ml PRN AFTMEALHC PRN PO DYSPEPSIA 05/16/21 16:45 Magnesium Hydroxide (Milk Of Magnesia) 2,400 mg PRN QHS PRN PO CONSTIPATION 05/16/21 16:45 Lactobacillus Rhamnosus (Culturelle) 1 cap BID PO 05/18/21 21:00 05/24/21 20:16 Mirtazapine (Remeron) 7.5 mg QHS PO 05/19/21 21:00 05/21/21 16:17 DC 05/20/21 20:11 Sertraline HCl (Zoloft) 25 mg DAILY PO 05/20/21 09:00 05/24/21 08:36 Risperidone (RisperDAL) 0.5 mg QHS PO 05/19/21 21:00 05/24/21 20:15 Carbidopa/Levodopa (Sinemet 25/100) 1 tab BID PO 05/21/21 21:00 05/24/21 20:16 Mirtazapine (Remeron) 15 mg QHS PO 05/21/21 21:00 05/24/21 20:16 Trazodone HCl (Desyrel) 50 mg PRN QHS PRN PO INSOMNIA, MAY REPEAT X1 05/21/21 16:15 05/24/21 20:16 Lorazepam (Ativan Intensol) 0.5 mg PRN Q1HR PRN SL ANXIETY / AGITATION 05/21/21 23:15 I have reviewed the current psychotropics carefully including drug interactions. Risk benefit ratio favors no change other than as noted in my dictated progress note. 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
--- NOTE | 2021-05-24 22:29 | NUR ---
Patient sitting in a chair outside his room on assumption of care. He is in pleasant spirits this evening, no agitation. Alert to name, , current date. Compliant with assessments and medications whole. PRN Trazodone given with HS meds due to poor sleep on previous nights. No delusions voiced so far this shift. He appears to be sleeping comfortably at present time. Will continue to monitor.
--- NOTE | 2021-05-25 00:02 | PDOC ---
Exam Note: Ben Note: This note is a late entry for 05/23/2021 covers elements not covered in my initial note. Subjective: The patient was seen individually in the evening of 05/23/2021 with Carlotta ENCINAS, discussed and reviewed the chart. The patient slept 5-1/2 hours previous night. She has had well in the evening. During the day he has been wanting to call his niece. He remains confused. Review of Systems: Ambulation impaired with walker. No CV, , pulmonary, eye system symptoms on review. Mental Status Exam: The patient is oriented to himself and situation. Insight and judgment, recent and remote memory, attention and concentration, fund of knowledge is poor consistent with his diagnoses. Laboratory Data: Reviewed. 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 Anxiety disorder, unspecified. Impulse control disorder, unspecified. Major depressive disorder. Plan: Continue current psychotropics. Assessment: Vital Signs/I&O: Vital Signs Date Time Temp Pulse Resp B/P (MAP) Pulse Ox O2 Delivery O2 Flow Rate FiO2 05/24/21 15:40 98.0 60 20 129/57 (81) 95 I & O 05/24/21 05/24/21 05/25/21 15:00 23:00 07:00 Intake Total 600 ml 200 ml Balance 600 ml 200 ml Labs: Laboratory Tests Test 05/24/21 07:50 White Blood Count 9.7 x10^3/uL (4.0-11.0) Red Blood Count 3.61 x10^6/uL (4.30-5.70) L Hemoglobin 10.9 g/dL (13.0-17.5) L Hematocrit 33.2 % (39.0-53.0) L Mean Corpuscular Volume 92 fL (79-100) Mean Corpuscular Hemoglobin 30 pg (25-35) Mean Corpuscular Hemoglobin Concent 33 g/dL (31-37) Red Cell Distribution Width 14.7 % (11.5-14.5) H Platelet Count 304 x10^3/uL (140-400) Neutrophils (%) (Auto) 64 % (31-73) Lymphocytes (%) (Auto) 21 % (24-48) L Monocytes (%) (Auto) 11 % (0-9) H Eosinophils (%) (Auto) 2 % (0-3) Basophils (%) (Auto) 2 % (0-3) Neutrophils # (Auto) 6.2 x10^3uL (1.8-7.7) Lymphocytes # (Auto) 2.0 x10^3/uL (1.0-4.8) Monocytes # (Auto) 1.0 x10^3/uL (0.0-1.1) Eosinophils # (Auto) 0.2 x10^3/uL (0.0-0.7) Basophils # (Auto) 0.2 x10^3/uL (0.0-0.2) Sodium Level 143 mmol/L (136-145) Potassium Level 3.5 mmol/L (3.5-5.1) Chloride Level 108 mmol/L (98-107) H Carbon Dioxide Level 27 mmol/L (21-32) Anion Gap 8 (6-14) Blood Urea Nitrogen 22 mg/dL (8-26) Creatinine 1.1 mg/dL (0.7-1.3) Estimated GFR (Cockcroft-Gault) 64.2 BUN/Creatinine Ratio 20 (6-20) Glucose Level 96 mg/dL (70-99) Calcium Level 7.9 mg/dL (8.5-10.1) L Total Bilirubin 0.4 mg/dL (0.2-1.0) Aspartate Amino Transferase (AST) 20 U/L (15-37) Alanine Aminotransferase (ALT) 20 U/L (16-63) Alkaline Phosphatase 84 U/L (46-116) Total Protein 5.6 g/dL (6.4-8.2) L Albumin 2.7 g/dL (3.4-5.0) L Albumin/Globulin Ratio 0.9 (1.0-1.7) L Current Medications: Meds: Laboratory Tests Test 05/24/21 07:50 White Blood Count 9.7 x10^3/uL Red Blood Count 3.61 x10^6/uL Hemoglobin 10.9 g/dL Hematocrit 33.2 % Mean Corpuscular Volume 92 fL Mean Corpuscular Hemoglobin 30 pg Mean Corpuscular Hemoglobin Concent 33 g/dL Red Cell Distribution Width 14.7 % Platelet Count 304 x10^3/uL Neutrophils (%) (Auto) 64 % Lymphocytes (%) (Auto) 21 % Monocytes (%) (Auto) 11 % Eosinophils (%) (Auto) 2 % Basophils (%) (Auto) 2 % Neutrophils # (Auto) 6.2 x10^3uL Lymphocytes # (Auto) 2.0 x10^3/uL Monocytes # (Auto) 1.0 x10^3/uL Eosinophils # (Auto) 0.2 x10^3/uL Basophils # (Auto) 0.2 x10^3/uL Sodium Level 143 mmol/L Potassium Level 3.5 mmol/L Chloride Level 108 mmol/L Carbon Dioxide Level 27 mmol/L Anion Gap 8 Blood Urea Nitrogen 22 mg/dL Creatinine 1.1 mg/dL Estimated GFR (Cockcroft-Gault) 64.2 BUN/Creatinine Ratio 20 Glucose Level 96 mg/dL Calcium Level 7.9 mg/dL Total Bilirubin 0.4 mg/dL Aspartate Amino Transf (AST/SGOT) 20 U/L Alanine Aminotransferase (ALT/SGPT) 20 U/L Alkaline Phosphatase 84 U/L Total Protein 5.6 g/dL Albumin 2.7 g/dL Albumin/Globulin Ratio 0.9 Current Medications Medications (Trade) Dose Ordered Sig/Angy Route PRN Reason Start Time Stop Time Status Last Admin Dose Admin Acetaminophen (Tylenol) 650 mg PRN Q4HRS PRN PO MILD PAIN / TEMP > 100.3'F 05/16/21 16:30 Amlodipine Besylate (Norvasc) 10 mg DAILY PO 05/17/21 09:00 05/24/21 08:37 Levofloxacin (Levaquin) 750 mg DAILY PO 05/17/21 09:00 05/21/21 21:00 DC 05/21/21 08:57 Olanzapine (ZyPREXA ZYDIS) 5 mg PRN BID PRN PO PSYCHOSIS 05/16/21 16:30 05/22/21 23:00 Quetiapine Fumarate (SEROquel) 50 mg QHS PO 05/16/21 21:00 05/19/21 12:13 DC 05/18/21 20:59 Tamsulosin HCl (Flomax) 0.4 mg DAILY PO 05/17/21 09:00 05/24/21 08:37 Artificial Tears (Refresh Classic) 1 drop PRN DAILY PRN OU DRY EYE 05/16/21 17:00 Multi-Ingredient Ointment (Analgesic [place]) 1 radha PRN QID PRN TP MUSCLE PAIN 05/16/21 16:45 Al Hydroxide/Mg Hydroxide (Mylanta Plus Xs) 15 ml PRN AFTMEALHC PRN PO DYSPEPSIA 05/16/21 16:45 Magnesium Hydroxide (Milk Of Magnesia) 2,400 mg PRN QHS PRN PO CONSTIPATION 05/16/21 16:45 Lactobacillus Rhamnosus (Culturelle) 1 cap BID PO 05/18/21 21:00 05/24/21 20:16 Mirtazapine (Remeron) 7.5 mg QHS PO 05/19/21 21:00 05/21/21 16:17 DC 05/20/21 20:11 Sertraline HCl (Zoloft) 25 mg DAILY PO 05/20/21 09:00 05/24/21 08:36 Risperidone (RisperDAL) 0.5 mg QHS PO 05/19/21 21:00 05/24/21 20:15 Carbidopa/Levodopa (Sinemet 25/100) 1 tab BID PO 05/21/21 21:00 05/24/21 20:16 Mirtazapine (Remeron) 15 mg QHS PO 05/21/21 21:00 05/24/21 20:16 Trazodone HCl (Desyrel) 50 mg PRN QHS PRN PO INSOMNIA, MAY REPEAT X1 05/21/21 16:15 05/24/21 20:16 Lorazepam (Ativan Intensol) 0.5 mg PRN Q1HR PRN SL ANXIETY / AGITATION 05/21/21 23:15 I have reviewed the current psychotropics carefully including drug interactions. Risk benefit ratio favors no change other than as noted in my dictated progress note. 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
[2021-05-25 06:13] VITALS: BP 157/72
[2021-05-25] MEDS: SERTRALINE 25 MG TABLET. PO SCH (08:35)
[2021-05-25] MEDS: TAMSULOSIN 0.4 MG CAP.ER.24H. PO SCH (08:35)
[2021-05-25] MEDS: LACTOBACILLUS RHAMNOSUS GG 1 CAPSULE. PO SCH ×2 (08:35→19:36)
[2021-05-25] MEDS: CARBIDOPA/LEVODOPA 25/100MG TABLET PO SCH ×2 (08:35→19:36)
[2021-05-25] MEDS: amLODIPine BESYLATE 10 MG TABLET PO SCH (08:35)
--- NOTE | 2021-05-25 15:18 | NUR ---
Nurse Note: Patient in hallway for medication & assessment, meds taken whole. He is alert to self, confused and disorganized. Patient ambulates independently in hallway and room with walker, feeds self, assist with ADLs. He is currently sitting in chair in hallway. Will continue to monitor.
[2021-05-25 16:00] VITALS: BP 163/79
[2021-05-25] MEDS: MIRTAZAPINE 15 MG TABLET PO SCH (19:36)
[2021-05-25] MEDS: risperiDONE 0.5 MG TABLET. PO SCH (19:36)
[2021-05-25] MEDS: traZODone 50 MG TABLET. PO PRN (19:37)
--- NOTE | 2021-05-25 22:27 | PDOC ---
Exam Note: Ben Note: Please also refer to the separate dictated note~for this date of service dictated separately.~Patient seen individually. Discussed the patient with Nursing staff reviewed the chart.~Reviewed interim history and current functioning. Reviewed vital signs,~Labs/ Radiology~and current medications noted below. Continue current treatment with the changes noted in the dictated addendum note Assessment: Vital Signs/I&O: Vital Signs Date Time Temp Pulse Resp B/P (MAP) Pulse Ox O2 Delivery O2 Flow Rate FiO2 05/25/21 16:00 97.1 57 18 163/79 (107) 97 I & O 05/24/21 05/24/21 05/25/21 15:00 23:00 07:00 Intake Total 600 ml 200 ml 240 ml Balance 600 ml 200 ml 240 ml Current Medications: Meds: Current Medications Medications (Trade) Dose Ordered Sig/Angy Route PRN Reason Start Time Stop Time Status Last Admin Dose Admin Acetaminophen (Tylenol) 650 mg PRN Q4HRS PRN PO MILD PAIN / TEMP > 100.3'F 05/16/21 16:30 Amlodipine Besylate (Norvasc) 10 mg DAILY PO 05/17/21 09:00 05/25/21 08:35 Levofloxacin (Levaquin) 750 mg DAILY PO 05/17/21 09:00 05/21/21 21:00 DC 05/21/21 08:57 Olanzapine (ZyPREXA ZYDIS) 5 mg PRN BID PRN PO PSYCHOSIS 05/16/21 16:30 05/22/21 23:00 Quetiapine Fumarate (SEROquel) 50 mg QHS PO 05/16/21 21:00 05/19/21 12:13 DC 05/18/21 20:59 Tamsulosin HCl (Flomax) 0.4 mg DAILY PO 05/17/21 09:00 05/25/21 08:35 Artificial Tears (Refresh Classic) 1 drop PRN DAILY PRN OU DRY EYE 05/16/21 17:00 Multi-Ingredient Ointment (Analgesic [place]) 1 radha PRN QID PRN TP MUSCLE PAIN 05/16/21 16:45 Al Hydroxide/Mg Hydroxide (Mylanta Plus Xs) 15 ml PRN AFTMEALHC PRN PO DYSPEPSIA 05/16/21 16:45 Magnesium Hydroxide (Milk Of Magnesia) 2,400 mg PRN QHS PRN PO CONSTIPATION 05/16/21 16:45 Lactobacillus Rhamnosus (Culturelle) 1 cap BID PO 05/18/21 21:00 05/25/21 19:36 Mirtazapine (Remeron) 7.5 mg QHS PO 05/19/21 21:00 05/21/21 16:17 DC 05/20/21 20:11 Sertraline HCl (Zoloft) 25 mg DAILY PO 05/20/21 09:00 05/25/21 08:35 Risperidone (RisperDAL) 0.5 mg QHS PO 05/19/21 21:00 05/25/21 19:36 Carbidopa/Levodopa (Sinemet 25/100) 1 tab BID PO 05/21/21 21:00 05/25/21 19:36 Mirtazapine (Remeron) 15 mg QHS PO 05/21/21 21:00 05/25/21 19:36 Trazodone HCl (Desyrel) 50 mg PRN QHS PRN PO INSOMNIA 05/21/21 16:15 05/25/21 19:37 Lorazepam (Ativan Intensol) 0.5 mg PRN Q1HR PRN SL ANXIETY / AGITATION 05/21/21 23:15 Trazodone HCl (Desyrel) 50 mg QHS PO 05/26/21 21:00 I have reviewed the current psychotropics carefully including drug interactions. Risk benefit ratio favors no change other than as noted in my dictated progress note. 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
--- NOTE | 2021-05-26 00:58 | NUR ---
Nursing Note Pt talking to his daughter on the phone in the hallway. Looks for his room, which is right behind him although he doesn't recognize it as his room. He states that he is looking for his car and his keys. Pt shortly after goes to bed and is resting well.
[2021-05-26 06:00] VITALS: BP_SYST 136; BP_SYST 186; BP_DIAS 73; BP_DIAS 78
[2021-05-26] MEDS: TAMSULOSIN 0.4 MG CAP.ER.24H. PO SCH (08:20)
[2021-05-26] MEDS: LACTOBACILLUS RHAMNOSUS GG 1 CAPSULE. PO SCH ×2 (08:20→19:35)
[2021-05-26] MEDS: SERTRALINE 25 MG TABLET. PO SCH (08:21)
[2021-05-26] MEDS: CARBIDOPA/LEVODOPA 25/100MG TABLET PO SCH ×2 (08:21→19:35)
[2021-05-26] MEDS: amLODIPine BESYLATE 10 MG TABLET PO SCH (08:21)
--- NOTE | 2021-05-26 09:54 | NUR ---
Nurse Note Patient alert to self, confused , disorganized. He confuses his niece at times to be his . Patient ambulates with walker steady., speech clear makes needs known. Patient toilets himself, assist with showers. Patient can feed self, good appetite. Compliant with medication and assessments. No behaviors at this time. Socializes with staff and other patients.
--- NOTE | 2021-05-26 10:12 | PDOC ---
Exam Note: Ben Note: This note is a late entry for 05/24/2021 covers elements not covered in my initial note. Subjective: The patient was seen individually in the evening of 05/24/2021 with Carlotta ENCINAS, discussed and reviewed the chart. The patient slept 6-1/4 hours previous night. She has been pleasant, confused. She is still getting up frequently at night. We will add trazodone h.s. p.r.n. Review of Systems: Ambulation impaired with walker. No CV, , pulmonary, eye system symptoms on review. Reliability poor. Mental Status Exam: The patient is oriented to himself and situation. Insight and judgment, recent and remote memory, attention and concentration, fund of knowledge is poor consistent with his diagnoses. Laboratory Data: Reviewed. 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 Anxiety disorder, unspecified. Impulse control disorder, unspecified. Major depressive disorder. Plan: Continue current psychotropics. We will add trazodone h.s. p.r.n. Assessment: Vital Signs/I&O: Vital Signs Date Time Temp Pulse Resp B/P (MAP) Pulse Ox O2 Delivery O2 Flow Rate FiO2 05/26/21 08:21 64 186/73 05/26/21 06:00 98.3 18 95 I & O 05/25/21 05/25/21 05/26/21 15:00 23:00 07:00 Intake Total 720 ml 360 ml Balance 720 ml 360 ml Current Medications: Meds: Current Medications Medications (Trade) Dose Ordered Sig/Angy Route PRN Reason Start Time Stop Time Status Last Admin Dose Admin Acetaminophen (Tylenol) 650 mg PRN Q4HRS PRN PO MILD PAIN / TEMP > 100.3'F 05/16/21 16:30 Amlodipine Besylate (Norvasc) 10 mg DAILY PO 05/17/21 09:00 05/26/21 08:21 Levofloxacin (Levaquin) 750 mg DAILY PO 05/17/21 09:00 05/21/21 21:00 DC 05/21/21 08:57 Olanzapine (ZyPREXA ZYDIS) 5 mg PRN BID PRN PO PSYCHOSIS 05/16/21 16:30 05/22/21 23:00 Quetiapine Fumarate (SEROquel) 50 mg QHS PO 05/16/21 21:00 05/19/21 12:13 DC 05/18/21 20:59 Tamsulosin HCl (Flomax) 0.4 mg DAILY PO 05/17/21 09:00 05/26/21 08:20 Artificial Tears (Refresh Classic) 1 drop PRN DAILY PRN OU DRY EYE 05/16/21 17:00 Multi-Ingredient Ointment (Analgesic [place]) 1 radha PRN QID PRN TP MUSCLE PAIN 05/16/21 16:45 Al Hydroxide/Mg Hydroxide (Mylanta Plus Xs) 15 ml PRN AFTMEALHC PRN PO DYSPEPSIA 05/16/21 16:45 Magnesium Hydroxide (Milk Of Magnesia) 2,400 mg PRN QHS PRN PO CONSTIPATION 05/16/21 16:45 Lactobacillus Rhamnosus (Culturelle) 1 cap BID PO 05/18/21 21:00 05/26/21 08:20 Mirtazapine (Remeron) 7.5 mg QHS PO 05/19/21 21:00 05/21/21 16:17 DC 05/20/21 20:11 Sertraline HCl (Zoloft) 25 mg DAILY PO 05/20/21 09:00 05/26/21 08:21 Risperidone (RisperDAL) 0.5 mg QHS PO 05/19/21 21:00 05/25/21 19:36 Carbidopa/Levodopa (Sinemet 25/100) 1 tab BID PO 05/21/21 21:00 05/26/21 08:21 Mirtazapine (Remeron) 15 mg QHS PO 05/21/21 21:00 05/25/21 19:36 Trazodone HCl (Desyrel) 50 mg PRN QHS PRN PO INSOMNIA 05/21/21 16:15 05/25/21 19:37 Lorazepam (Ativan Intensol) 0.5 mg PRN Q1HR PRN SL ANXIETY / AGITATION 05/21/21 23:15 Trazodone HCl (Desyrel) 50 mg QHS PO 05/26/21 21:00 I have reviewed the current psychotropics carefully including drug interactions. Risk benefit ratio favors no change other than as noted in my dictated progress note. 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
[2021-05-26 16:07] VITALS: BP 156/65
[2021-05-26] MEDS: traZODone 50 MG TABLET. PO SCH (19:35)
[2021-05-26] MEDS: risperiDONE 0.5 MG TABLET. PO SCH (19:35)
[2021-05-26] MEDS: MIRTAZAPINE 15 MG TABLET PO SCH (19:35)
--- NOTE | 2021-05-26 22:07 | PDOC ---
Exam Note: Ben Note: Please also refer to the separate dictated note~for this date of service dictated separately.~Patient seen individually. Discussed the patient with Nursing staff reviewed the chart.~Reviewed interim history and current functioning. Reviewed vital signs,~Labs/ Radiology~and current medications noted below. Continue current treatment with the changes noted in the dictated addendum note Assessment: Vital Signs/I&O: Vital Signs Date Time Temp Pulse Resp B/P (MAP) Pulse Ox O2 Delivery O2 Flow Rate FiO2 05/26/21 16:07 97.8 64 18 156/65 (95) 97 I & O 05/25/21 05/25/21 05/26/21 15:00 23:00 07:00 Intake Total 720 ml 360 ml Balance 720 ml 360 ml Current Medications: Meds: Current Medications Medications (Trade) Dose Ordered Sig/Angy Route PRN Reason Start Time Stop Time Status Last Admin Dose Admin Acetaminophen (Tylenol) 650 mg PRN Q4HRS PRN PO MILD PAIN / TEMP > 100.3'F 05/16/21 16:30 Amlodipine Besylate (Norvasc) 10 mg DAILY PO 05/17/21 09:00 05/26/21 08:21 Levofloxacin (Levaquin) 750 mg DAILY PO 05/17/21 09:00 05/21/21 21:00 DC 05/21/21 08:57 Olanzapine (ZyPREXA ZYDIS) 5 mg PRN BID PRN PO PSYCHOSIS 05/16/21 16:30 05/22/21 23:00 Quetiapine Fumarate (SEROquel) 50 mg QHS PO 05/16/21 21:00 05/19/21 12:13 DC 05/18/21 20:59 Tamsulosin HCl (Flomax) 0.4 mg DAILY PO 05/17/21 09:00 05/26/21 08:20 Artificial Tears (Refresh Classic) 1 drop PRN DAILY PRN OU DRY EYE 05/16/21 17:00 Multi-Ingredient Ointment (Analgesic [place]) 1 radha PRN QID PRN TP MUSCLE PAIN 05/16/21 16:45 Al Hydroxide/Mg Hydroxide (Mylanta Plus Xs) 15 ml PRN AFTMEALHC PRN PO DYSPEPSIA 05/16/21 16:45 Magnesium Hydroxide (Milk Of Magnesia) 2,400 mg PRN QHS PRN PO CONSTIPATION 05/16/21 16:45 Lactobacillus Rhamnosus (Culturelle) 1 cap BID PO 05/18/21 21:00 05/26/21 19:35 Mirtazapine (Remeron) 7.5 mg QHS PO 05/19/21 21:00 05/21/21 16:17 DC 05/20/21 20:11 Sertraline HCl (Zoloft) 25 mg DAILY PO 05/20/21 09:00 05/26/21 08:21 Risperidone (RisperDAL) 0.5 mg QHS PO 05/19/21 21:00 05/26/21 19:35 Carbidopa/Levodopa (Sinemet 25/100) 1 tab BID PO 05/21/21 21:00 05/26/21 19:35 Mirtazapine (Remeron) 15 mg QHS PO 05/21/21 21:00 05/26/21 19:35 Trazodone HCl (Desyrel) 50 mg PRN QHS PRN PO INSOMNIA 05/21/21 16:15 05/25/21 19:37 Lorazepam (Ativan Intensol) 0.5 mg PRN Q1HR PRN SL ANXIETY / AGITATION 05/21/21 23:15 Trazodone HCl (Desyrel) 50 mg QHS PO 05/26/21 21:00 05/26/21 19:35 Current Medications Medications (Trade) Dose Ordered Sig/Angy Route PRN Reason Start Time Stop Time Status Last Admin Dose Admin Trazodone HCl (Desyrel) 50 mg QHS PO 05/26/21 21:00 05/26/21 19:35 I have reviewed the current psychotropics carefully including drug interactions. Risk benefit ratio favors no change other than as noted in my dictated progress note. 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
--- NOTE | 2021-05-26 23:01 | NUR ---
Nursing Note PT still awake in his room, looking for a ride, thinks he has been discharged and that he missed his ride out of here. Repeat trazodone given. Pt attempting to lay down for sleep now.
[2021-05-26] MEDS: traZODone 50 MG TABLET. PO PRN (23:11)
[2021-05-27 05:41] VITALS: BP 178/62
[2021-05-27] MEDS: TAMSULOSIN 0.4 MG CAP.ER.24H. PO SCH (08:30)
[2021-05-27] MEDS: SERTRALINE 50 MG TABLET. PO SCH (08:30)
[2021-05-27] MEDS: amLODIPine BESYLATE 10 MG TABLET PO SCH (08:30)
[2021-05-27] MEDS: CARBIDOPA/LEVODOPA 25/100MG TABLET PO SCH ×2 (08:30→21:05)
[2021-05-27] MEDS: LACTOBACILLUS RHAMNOSUS GG 1 CAPSULE. PO SCH ×2 (08:30→21:05)
--- NOTE | 2021-05-27 08:31 | PDOC ---
Exam Note: Ben Note: This note is a late entry for 05/25/2021 covers elements not covered in my initial note. Subjective: The patient was seen individually in the evening of 05/25/2021 with Zeinab ENCINAS, discussed and reviewed the chart. The patient slept 6-1/4 hours previous night. He has had some insomnia. We will change trazodone to 50 mg scheduled h.s. We may repeat x1. Review of Systems: Ambulation impaired with walker. No CV, , pulmonary, eye system symptoms on review. Reliability poor. Mental Status Exam: The patient is oriented to himself. Insight and judgment, recent and remote memory, attention and concentration, fund of knowledge is poor consistent with his diagnoses. Laboratory Data: Reviewed. 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 Anxiety disorder, unspecified. Impulse control disorder, unspecified. Major depressive disorder. Plan: Continue current psychotropics. We will change trazodone to 50 mg scheduled h.s. We may repeat x1. Assessment: Vital Signs/I&O: Vital Signs Date Time Temp Pulse Resp B/P (MAP) Pulse Ox O2 Delivery O2 Flow Rate FiO2 05/27/21 05:41 97.2 74 18 178/62 (100) 96 I & O 05/26/21 05/26/21 05/27/21 15:00 23:00 07:00 Intake Total 960 ml 600 ml Balance 960 ml 600 ml Current Medications: Meds: Current Medications Medications (Trade) Dose Ordered Sig/Angy Route PRN Reason Start Time Stop Time Status Last Admin Dose Admin Acetaminophen (Tylenol) 650 mg PRN Q4HRS PRN PO MILD PAIN / TEMP > 100.3'F 05/16/21 16:30 Amlodipine Besylate (Norvasc) 10 mg DAILY PO 05/17/21 09:00 05/26/21 08:21 Levofloxacin (Levaquin) 750 mg DAILY PO 05/17/21 09:00 05/21/21 21:00 DC 05/21/21 08:57 Olanzapine (ZyPREXA ZYDIS) 5 mg PRN BID PRN PO PSYCHOSIS 05/16/21 16:30 05/22/21 23:00 Quetiapine Fumarate (SEROquel) 50 mg QHS PO 05/16/21 21:00 05/19/21 12:13 DC 05/18/21 20:59 Tamsulosin HCl (Flomax) 0.4 mg DAILY PO 05/17/21 09:00 05/26/21 08:20 Artificial Tears (Refresh Classic) 1 drop PRN DAILY PRN OU DRY EYE 05/16/21 17:00 Multi-Ingredient Ointment (Analgesic [place]) 1 radha PRN QID PRN TP MUSCLE PAIN 05/16/21 16:45 Al Hydroxide/Mg Hydroxide (Mylanta Plus Xs) 15 ml PRN AFTMEALHC PRN PO DYSPEPSIA 05/16/21 16:45 Magnesium Hydroxide (Milk Of Magnesia) 2,400 mg PRN QHS PRN PO CONSTIPATION 05/16/21 16:45 Lactobacillus Rhamnosus (Culturelle) 1 cap BID PO 05/18/21 21:00 05/26/21 19:35 Mirtazapine (Remeron) 7.5 mg QHS PO 05/19/21 21:00 05/21/21 16:17 DC 05/20/21 20:11 Sertraline HCl (Zoloft) 25 mg DAILY PO 05/20/21 09:00 05/27/21 01:09 DC 05/26/21 08:21 Risperidone (RisperDAL) 0.5 mg QHS PO 05/19/21 21:00 05/26/21 19:35 Carbidopa/Levodopa (Sinemet 25/100) 1 tab BID PO 05/21/21 21:00 05/26/21 19:35 Mirtazapine (Remeron) 15 mg QHS PO 05/21/21 21:00 05/26/21 19:35 Trazodone HCl (Desyrel) 50 mg PRN QHS PRN PO INSOMNIA 05/21/21 16:15 05/26/21 23:11 Lorazepam (Ativan Intensol) 0.5 mg PRN Q1HR PRN SL ANXIETY / AGITATION 05/21/21 23:15 Trazodone HCl (Desyrel) 50 mg QHS PO 05/26/21 21:00 05/26/21 19:35 Sertraline HCl (Zoloft) 25 mg DAILY PO 05/27/21 09:00 05/27/21 01:09 DC Sertraline HCl (Zoloft) 50 mg DAILY PO 05/30/21 09:00 05/27/21 01:09 DC Sertraline HCl (Zoloft) 50 mg DAILY PO 05/27/21 09:00 Current Medications Medications (Trade) Dose Ordered Sig/Angy Route PRN Reason Start Time Stop Time Status Last Admin Dose Admin Trazodone HCl (Desyrel) 50 mg QHS PO 05/26/21 21:00 05/26/21 19:35 I have reviewed the current psychotropics carefully including drug interactions. Risk benefit ratio favors no change other than as noted in my dictated progress note. 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
--- NOTE | 2021-05-27 08:43 | PDOC ---
Exam Note: Ben Note: This note is a late entry for 05/26/2021 covers elements not covered in my initial note. Subjective: The patient was seen individually in the evening of 05/26/2021 with Zeinab ENCINAS, discussed and reviewed the chart. The patient slept 5-3/4 hours previous night. He remains anxious, restless. He was in the [facility] hallway at times. Review of Systems: Ambulation impaired with walker. Gait unsteady. No CV, , pulmonary, eye, ENT system symptoms on review. Reliability poor. Mental Status Exam: The patient is oriented to himself and situation. Insight and judgment, recent and remote memory, attention and concentration, fund of knowledge is poor consistent with his diagnoses. Laboratory Data: Reviewed. 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 Anxiety disorder, unspecified. Impulse control disorder, unspecified. Major depressive disorder. Plan: Continue current psychotropics. We will start Zoloft 25 mg a day for 3 days and 50 mg a day. Rest unchanged for now. Assessment: Vital Signs/I&O: Vital Signs Date Time Temp Pulse Resp B/P (MAP) Pulse Ox O2 Delivery O2 Flow Rate FiO2 05/27/21 08:30 74 178/62 05/27/21 05:41 97.2 18 96 I & O 05/26/21 05/26/21 05/27/21 14:59 22:59 06:59 Intake Total 960 ml 600 ml Balance 960 ml 600 ml Current Medications: Meds: Current Medications Medications (Trade) Dose Ordered Sig/Angy Route PRN Reason Start Time Stop Time Status Last Admin Dose Admin Acetaminophen (Tylenol) 650 mg PRN Q4HRS PRN PO MILD PAIN / TEMP > 100.3'F 05/16/21 16:30 Amlodipine Besylate (Norvasc) 10 mg DAILY PO 05/17/21 09:00 05/27/21 08:30 Levofloxacin (Levaquin) 750 mg DAILY PO 05/17/21 09:00 05/21/21 21:00 DC 05/21/21 08:57 Olanzapine (ZyPREXA ZYDIS) 5 mg PRN BID PRN PO PSYCHOSIS 05/16/21 16:30 05/22/21 23:00 Quetiapine Fumarate (SEROquel) 50 mg QHS PO 05/16/21 21:00 05/19/21 12:13 DC 05/18/21 20:59 Tamsulosin HCl (Flomax) 0.4 mg DAILY PO 05/17/21 09:00 05/27/21 08:30 Artificial Tears (Refresh Classic) 1 drop PRN DAILY PRN OU DRY EYE 05/16/21 17:00 05/27/21 08:37 Multi-Ingredient Ointment (Analgesic [place]) 1 radha PRN QID PRN TP MUSCLE PAIN 05/16/21 16:45 Al Hydroxide/Mg Hydroxide (Mylanta Plus Xs) 15 ml PRN AFTMEALHC PRN PO DYSPEPSIA 05/16/21 16:45 Magnesium Hydroxide (Milk Of Magnesia) 2,400 mg PRN QHS PRN PO CONSTIPATION 05/16/21 16:45 Lactobacillus Rhamnosus (Culturelle) 1 cap BID PO 05/18/21 21:00 05/27/21 08:30 Mirtazapine (Remeron) 7.5 mg QHS PO 05/19/21 21:00 05/21/21 16:17 DC 05/20/21 20:11 Sertraline HCl (Zoloft) 25 mg DAILY PO 05/20/21 09:00 05/27/21 01:09 DC 05/26/21 08:21 Risperidone (RisperDAL) 0.5 mg QHS PO 05/19/21 21:00 05/26/21 19:35 Carbidopa/Levodopa (Sinemet 25/100) 1 tab BID PO 05/21/21 21:00 05/27/21 08:30 Mirtazapine (Remeron) 15 mg QHS PO 05/21/21 21:00 05/26/21 19:35 Trazodone HCl (Desyrel) 50 mg PRN QHS PRN PO INSOMNIA 05/21/21 16:15 05/26/21 23:11 Lorazepam (Ativan Intensol) 0.5 mg PRN Q1HR PRN SL ANXIETY / AGITATION 05/21/21 23:15 Trazodone HCl (Desyrel) 50 mg QHS PO 05/26/21 21:00 05/26/21 19:35 Sertraline HCl (Zoloft) 25 mg DAILY PO 05/27/21 09:00 05/27/21 01:09 DC Sertraline HCl (Zoloft) 50 mg DAILY PO 05/30/21 09:00 05/27/21 01:09 DC Sertraline HCl (Zoloft) 50 mg DAILY PO 05/27/21 09:00 05/27/21 08:30 Current Medications Medications (Trade) Dose Ordered Sig/Angy Route PRN Reason Start Time Stop Time Status Last Admin Dose Admin Trazodone HCl (Desyrel) 50 mg QHS PO 05/26/21 21:00 05/26/21 19:35 Sertraline HCl (Zoloft) 50 mg DAILY PO 05/27/21 09:00 05/27/21 08:30 I have reviewed the current psychotropics carefully including drug interactions. Risk benefit ratio favors no change other than as noted in my dictated progress note. 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
[2021-05-27] MEDS ORDERED: SERTRALINE 25 MG TABLET. PO SCH (09:00)
--- NOTE | 2021-05-27 11:29 | NUR ---
Nurse Note: Patient in hallway for medication & assessment, meds taken whole. He is A/O X4, confused and disorganized. Patient ambulates independently in hallway and room with walker, feeds self, assist with ADLs. He is currently sitting in chair in hallway talking on the phone to his family. Will continue to monitor.
--- NOTE | 2021-05-27 13:54 | NUR ---
WEEKLY ACTIVITY THERAPY NOTE Date of Admission: 05/16/2021 Date of AT Assessment: 05/19/2021 Precipitating behaviors that initiated intake and admission: Patient was reported to be anxious, depressed, AMS, ran away from his house and spent the night outside, delusional, sleep disturbance, thinking his is not his . Goal aimed: to increase relaxation techniques and socialization Initial Goal: Pt. will participate in at least five Activity Therapy individual or group sessions per week. Weekly progress towards goal: did not achieve, /5 Group participation level: 1 full Weekly highlights: accepted magazines Wednesday, reading a newspaper Behaviors observed: pleasant and calm, social with peers and staff Plan: no change to goal Beneficial adaptations:
[2021-05-27 15:51] VITALS: BP 144/68
--- NOTE | 2021-05-27 20:27 | PN ---
NO DICTATION KARSON/NEGRO DR: Jeff TID: [id number]
[2021-05-27] MEDS: MIRTAZAPINE 15 MG TABLET PO SCH (21:04)
[2021-05-27] MEDS: traZODone 50 MG TABLET. PO SCH (21:05)
--- NOTE | 2021-05-27 21:05 | CONS ---
DATE OF CONSULTATION: 05/21/2021 NEURO CONSULTATION REFERRING PHYSICIAN: Dr. Lopez. REASON FOR CONSULTATION: Parkinson's disease. HISTORY OF PRESENT ILLNESS: This is an 80-year-old right-handed male who was admitted on 05/16/2021 on account of severe mental status changes, confusion, delusion and behavior disturbances. The patient was initially transferred from [facility] on account of increasing agitation, confusion and delusions. He spend his night outside the house. He stated he is having significant problem was sleep. Neuro consult was requested because the patient has had a history of Parkinson disease. Currently, the patient described intermittent tremor of the hands at rest along with significant slowing of adult daily activities in the last few years. He denies any recent head injuries or fall. The patient uses a walker for ambulation. Currently, he denies headaches, visual disturbances, nausea, vomiting, chest pain, shortness of breath or palpitation, dysarthria or dysphagia. 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 PAST SURGICAL HISTORY: Positive for CISCO ADMINISTRATOR shunt. PAST PSYCHIATRIC HISTORY: Significant for mental status changes, paranoia, delusion and behavior disturbances. FAMILY HISTORY: Noncontributory. SOCIAL HISTORY: The patient lives with his at home. He denies smoking, alcohol drinking or illicit drug use. REVIEW OF SYSTEMS: A 10-point review of system was performed as mentioned above in the history of present illness, otherwise unremarkable. CURRENT HOME MEDICATIONS: Tylenol, Norvasc, artificial tears, lorazepam p.r.n., mirtazapine, olanzapine, risperidone, sertraline, tamsulosin. ALLERGIES: No known drug allergies. PHYSICAL EXAMINATION: GENERAL: Well-developed, well-nourished male in no acute distress. He weighs 97.3 pounds. VITAL SIGNS: Blood pressure 116/62, respiratory rate 20, pulse is 71, oxygen saturation 95% on room air, temperature 97.1. HEENT: Normocephalic and atraumatic, otherwise unremarkable. NECK: Supple. Negative for carotid bruit, lymphadenopathy or thyromegaly. LUNGS: Clear to A and P. CARDIAC: Regular rate and rhythm, normal S1 and S2. There is no S3, S4 or murmur. ABDOMEN: Soft. Bowel sounds positive. EXTREMITIES: Negative for cyanosis, clubbing or edema. NEUROLOGIC: Mental status: The patient is alert and oriented x3. Speech is clear. There is no language dysfunction. Memory, judgment and abstracting thinkings are intact. The patient denies hallucination or delusion. Cranial nerves: Visual martinez are full. The pupils are reactive to light and accommodation. Extraocular movements are intact. There is no nystagmus. There is no facial motor or sensory deficits. Hearing is intact bilaterally. The palate is elevated symmetrically. Sternocleidomastoid muscles are powerful bilaterally. The patient shrugs his shoulders symmetrically, protrudes his tongue in the midline without fasciculation or atrophy. Motor examination: No focal muscle bulk wasting. The tone is normal. The strength is 4/5 throughout. Sensory examination revealed normal pinprick, light touch, vibratory and position senses. Deep tendon reflexes were symmetric and hypoactive with absent Achilles responses. Gait: The patient uses a walker for ambulation. The tone is slightly increased in the lower extremities. DIAGNOSTIC DATA: Nonenhanced head CT scan revealed no acute intracranial process and it showed a ventricular catheter in the lateral ventricle along with small vessel ischemic changes. CT scan of the right femur without contrast revealed no acute fracture or dislocation, enlarged prostate, fatty lesion confined to the anterior medial right thigh with calcification. Venous Doppler study of the lower extremities reveal no evidence of DVT in the right lower extremity, but showed a central process of the posterior tibial vein. LABORATORY DATA: CBC from 05/17/2021 revealed white blood cells of 14.1 thousand, hemoglobin 13.7, hematocrit 41.5, platelet count 278,000. Chemistry from 05/17/2021 revealed elevated liver enzymes and slightly elevated TSH at 1.77. Urinalysis revealed red blood cells of more than 40 with 0 bacteria; however, because of elevated white blood cells, the patient was started on broad spectrum antibiotic Rocephin. IMPRESSION: 1. History of Parkinson disease. 2. Multiple medical problems include hypertension, hyperlipidemia, normal pressure hydrocephalus required CISCO ADMINISTRATOR shunt placement, benign prostate hypertrophy. 3. Multiple psychiatric problems include major depressions with intermittent psychotic features, behavior disturbances and anxiety disorders. RECOMMENDATIONS: 1. We will start the patient on carbidopa/levodopa 25/100 b.i.d. and increase it gradually to t.i.d. as tolerated. 2. Continue with current medical and psychiatric care. KARSON/NEGRO DR: KARSON/josie TID: [id number]
[2021-05-27] MEDS: risperiDONE 0.5 MG TABLET. PO SCH (21:06)
--- NOTE | 2021-05-27 22:14 | PDOC ---
Exam Note: Ben Note: Please also refer to the separate dictated note~for this date of service dictated separately.~Patient seen individually. Discussed the patient with Nursing staff reviewed the chart.~Reviewed interim history and current functioning. Reviewed vital signs,~Labs/ Radiology~and current medications noted below. Continue current treatment with the changes noted in the dictated addendum note Assessment: Vital Signs/I&O: Vital Signs Date Time Temp Pulse Resp B/P (MAP) Pulse Ox O2 Delivery O2 Flow Rate FiO2 05/27/21 15:51 97.9 81 16 144/68 (93) 97 I & O 05/26/21 05/26/21 05/27/21 15:00 23:00 07:00 Intake Total 960 ml 600 ml Balance 960 ml 600 ml Current Medications: Meds: Current Medications Medications (Trade) Dose Ordered Sig/Angy Route PRN Reason Start Time Stop Time Status Last Admin Dose Admin Acetaminophen (Tylenol) 650 mg PRN Q4HRS PRN PO MILD PAIN / TEMP > 100.3'F 05/16/21 16:30 Amlodipine Besylate (Norvasc) 10 mg DAILY PO 05/17/21 09:00 05/27/21 08:30 Levofloxacin (Levaquin) 750 mg DAILY PO 05/17/21 09:00 05/21/21 21:00 DC 05/21/21 08:57 Olanzapine (ZyPREXA ZYDIS) 5 mg PRN BID PRN PO PSYCHOSIS 05/16/21 16:30 05/22/21 23:00 Quetiapine Fumarate (SEROquel) 50 mg QHS PO 05/16/21 21:00 05/19/21 12:13 DC 05/18/21 20:59 Tamsulosin HCl (Flomax) 0.4 mg DAILY PO 05/17/21 09:00 05/27/21 08:30 Artificial Tears (Refresh Classic) 1 drop PRN DAILY PRN OU DRY EYE 05/16/21 17:00 05/27/21 08:37 Multi-Ingredient Ointment (Analgesic [place]) 1 radha PRN QID PRN TP MUSCLE PAIN 05/16/21 16:45 Al Hydroxide/Mg Hydroxide (Mylanta Plus Xs) 15 ml PRN AFTMEALHC PRN PO DYSPEPSIA 05/16/21 16:45 Magnesium Hydroxide (Milk Of Magnesia) 2,400 mg PRN QHS PRN PO CONSTIPATION 05/16/21 16:45 Lactobacillus Rhamnosus (Culturelle) 1 cap BID PO 05/18/21 21:00 05/27/21 21:05 Mirtazapine (Remeron) 7.5 mg QHS PO 05/19/21 21:00 05/21/21 16:17 DC 05/20/21 20:11 Sertraline HCl (Zoloft) 25 mg DAILY PO 05/20/21 09:00 05/27/21 01:09 DC 05/26/21 08:21 Risperidone (RisperDAL) 0.5 mg QHS PO 05/19/21 21:00 05/27/21 21:06 Carbidopa/Levodopa (Sinemet 25/100) 1 tab BID PO 05/21/21 21:00 05/27/21 18:06 DC 05/27/21 08:30 Mirtazapine (Remeron) 15 mg QHS PO 05/21/21 21:00 05/27/21 21:04 Trazodone HCl (Desyrel) 50 mg PRN QHS PRN PO INSOMNIA 05/21/21 16:15 05/26/21 23:11 Lorazepam (Ativan Intensol) 0.5 mg PRN Q1HR PRN SL ANXIETY / AGITATION 05/21/21 23:15 Trazodone HCl (Desyrel) 50 mg QHS PO 05/26/21 21:00 05/27/21 21:05 Sertraline HCl (Zoloft) 25 mg DAILY PO 05/27/21 09:00 05/27/21 01:09 DC Sertraline HCl (Zoloft) 50 mg DAILY PO 05/30/21 09:00 05/27/21 01:09 DC Sertraline HCl (Zoloft) 50 mg DAILY PO 05/27/21 09:00 05/27/21 08:30 Carbidopa/Levodopa (Sinemet 25/100) 1 tab TID PO 05/27/21 21:00 05/27/21 21:05 Current Medications Medications (Trade) Dose Ordered Sig/Angy Route PRN Reason Start Time Stop Time Status Last Admin Dose Admin Sertraline HCl (Zoloft) 50 mg DAILY PO 05/27/21 09:00 05/27/21 08:30 Carbidopa/Levodopa (Sinemet 25/100) 1 tab TID PO 05/27/21 21:00 05/27/21 21:05 I have reviewed the current psychotropics carefully including drug interactions. Risk benefit ratio favors no change other than as noted in my dictated progress note. 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
--- NOTE | 2021-05-28 04:15 | NUR ---
Nursing Note The patient was located in the hallway near the [facility] for his assessment and medication pass. The patient was alert to self, date and that he is in a hospital. The patient took his medication whole. The patient was interactive with peers while awake. The patient is currently sleeping in his room.
[2021-05-28 06:03] VITALS: BP 160/80
[2021-05-28] MEDS: SERTRALINE 50 MG TABLET. PO SCH (08:11)
[2021-05-28] MEDS: TAMSULOSIN 0.4 MG CAP.ER.24H. PO SCH (08:11)
[2021-05-28] MEDS: amLODIPine BESYLATE 10 MG TABLET PO SCH (08:12)
[2021-05-28] MEDS: LACTOBACILLUS RHAMNOSUS GG 1 CAPSULE. PO SCH ×2 (08:12→19:56)
[2021-05-28] MEDS: CARBIDOPA/LEVODOPA 25/100MG TABLET PO SCH ×3 (08:12→19:56)
--- NOTE | 2021-05-28 08:28 | PDOC ---
Exam Note: Ben Note: This note is a late entry for 05/27/2021 covers elements not covered in my initial note. Subjective: The patient was reviewed at treatment team meeting individually in the morning on 05/27/2021 with Kaylan Corcoran, Romy Wells (clinical social work aide), Thalia, activity therapy and Ofelia ENCINAS, discussed and reviewed the chart. The patient slept 4-1/2 hours previous night. He briefly appeared alert and oriented x4. Post discharge he would need a neurosurgical consult for his follow up for normal pressure hydrocephalus. Review of Systems: Ambulation impaired with walker. No CV, , pulmonary, eye, ENT system symptoms on review. Mental Status Exam: The patient is oriented to himself and situation. Speech has some latency, coherent. Abstraction fair. Computation impaired. Language function intact. Attention span short. Mood and affect somewhat withdrawn. Laboratory Data: Reviewed. Impression: Major depressive disorder with psychotic features. Mild cognitive impairment versus major neurocognitive disorder Alzheimer, vascular with delusion, depression. Anxiety disorder, unspecified. Impulse control disorder, unspecified. Plan: Continue current psychotropics. Maintain Risperdal, Zoloft and rest of the psychotropics unchanged. If paranoia resurfaces, we may need to increase Risperdal. I received a message from the [facility] peer review department and I will return the call tomorrow morning. Assessment: Vital Signs/I&O: Vital Signs Date Time Temp Pulse Resp B/P (MAP) Pulse Ox O2 Delivery O2 Flow Rate FiO2 05/28/21 08:12 83 160/80 05/28/21 06:03 98.1 20 95 I & O 05/27/21 05/27/21 05/28/21 15:00 23:00 07:00 Intake Total 1080 ml 720 ml Balance 1080 ml 720 ml Current Medications: Meds: Current Medications Medications (Trade) Dose Ordered Sig/Angy Route PRN Reason Start Time Stop Time Status Last Admin Dose Admin Acetaminophen (Tylenol) 650 mg PRN Q4HRS PRN PO MILD PAIN / TEMP > 100.3'F 05/16/21 16:30 Amlodipine Besylate (Norvasc) 10 mg DAILY PO 05/17/21 09:00 05/28/21 08:12 Levofloxacin (Levaquin) 750 mg DAILY PO 05/17/21 09:00 05/21/21 21:00 DC 05/21/21 08:57 Olanzapine (ZyPREXA ZYDIS) 5 mg PRN BID PRN PO PSYCHOSIS 05/16/21 16:30 05/22/21 23:00 Quetiapine Fumarate (SEROquel) 50 mg QHS PO 05/16/21 21:00 05/19/21 12:13 DC 05/18/21 20:59 Tamsulosin HCl (Flomax) 0.4 mg DAILY PO 05/17/21 09:00 05/28/21 08:11 Artificial Tears (Refresh Classic) 1 drop PRN DAILY PRN OU DRY EYE 05/16/21 17:00 05/27/21 08:37 Multi-Ingredient Ointment (Analgesic [place]) 1 radha PRN QID PRN TP MUSCLE PAIN 05/16/21 16:45 Al Hydroxide/Mg Hydroxide (Mylanta Plus Xs) 15 ml PRN AFTMEALHC PRN PO DYSPEPSIA 05/16/21 16:45 Magnesium Hydroxide (Milk Of Magnesia) 2,400 mg PRN QHS PRN PO CONSTIPATION 05/16/21 16:45 Lactobacillus Rhamnosus (Culturelle) 1 cap BID PO 05/18/21 21:00 05/28/21 08:12 Mirtazapine (Remeron) 7.5 mg QHS PO 05/19/21 21:00 05/21/21 16:17 DC 05/20/21 20:11 Sertraline HCl (Zoloft) 25 mg DAILY PO 05/20/21 09:00 05/27/21 01:09 DC 05/26/21 08:21 Risperidone (RisperDAL) 0.5 mg QHS PO 05/19/21 21:00 05/27/21 21:06 Carbidopa/Levodopa (Sinemet 25/100) 1 tab BID PO 05/21/21 21:00 05/27/21 18:06 DC 05/27/21 08:30 Mirtazapine (Remeron) 15 mg QHS PO 05/21/21 21:00 05/27/21 21:04 Trazodone HCl (Desyrel) 50 mg PRN QHS PRN PO INSOMNIA 05/21/21 16:15 05/26/21 23:11 Lorazepam (Ativan Intensol) 0.5 mg PRN Q1HR PRN SL ANXIETY / AGITATION 05/21/21 23:15 Trazodone HCl (Desyrel) 50 mg QHS PO 05/26/21 21:00 05/27/21 21:05 Sertraline HCl (Zoloft) 25 mg DAILY PO 05/27/21 09:00 05/27/21 01:09 DC Sertraline HCl (Zoloft) 50 mg DAILY PO 05/30/21 09:00 05/27/21 01:09 DC Sertraline HCl (Zoloft) 50 mg DAILY PO 05/27/21 09:00 05/28/21 08:11 Carbidopa/Levodopa (Sinemet 25/100) 1 tab TID PO 05/27/21 21:00 05/28/21 08:12 Current Medications Medications (Trade) Dose Ordered Sig/Angy Route PRN Reason Start Time Stop Time Status Last Admin Dose Admin Sertraline HCl (Zoloft) 50 mg DAILY PO 05/27/21 09:00 05/28/21 08:11 Carbidopa/Levodopa (Sinemet 25/100) 1 tab TID PO 05/27/21 21:00 05/28/21 08:12 I have reviewed the current psychotropics carefully including drug interactions. Risk benefit ratio favors no change other than as noted in my dictated progress note. 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
--- NOTE | 2021-05-28 10:00 | NUR ---
ANDERS had a conference call with pt rosita Hooker and her Adelfo who is the trustee for pt. ANDERS explained to all parties on what the [employer] Advantage plan covers and the differences between it and Traditional Medicare A/B. ANDERS also explained the fact that these plan only cover Medical expenses or intermediate care; they do not cover bases for placement. Placement is paid in 3 ways: private pay, LTC insurance or Medicaid. It appears that pt does not have a LTC policy that they have found and he may not qualify for Medicaid as he has a farm and they would have to sell his land and other assets before he could qualify. At this time, pt would have to be considered private pay; in which the family is looking at 6k-8k facility depending. [place] currently in [place] caregiver services and paying $4500 per month; it is believed that she will also have to move up to a Memory Care Unit because she is becoming more work on their [place]. Nhung stated "where are we supposed to come up with possibly $16k for them to be on Memory Care Units". ANDERS empathized and matter of fact stated, "you will have to sell pt farm/assets and use that money for as long as they can to pay for care". Adelfo reports that they are already paying for some of their care out of Catalina's finances and "sorry for being isael, but I'm sick of paying for their stuff. It's taxing on us and I'm tired". ANDERS again empathized and discussed starting the process of setting up an estate sale, sell the farm, etc to help with expenses over time. ANDERS also mentioned open enrollment and having them apply for the Traditional Medicare A/B versus an advantage plan. The advantage plans dictate care; whereas we have more leniency on the stay while being hospitalized. Nhung reports while looking through everything, pt has signed them up for 4 supplemental plans and paying almost $900 per month on supplemental plans alone and she is working on getting those canceled. Adelfo questioned what happened in the event that pt insurance denies the peer to peer again and ANDERS explained that we could continue to go the appeal route or the family could look at being private pay until the placement for pt gets finalized. ANDERS explained that the private pay rate is $2970 per day for room and board. That did not include other services such as psychiatry, hospitalist, labs/testing. The family questioned if those services could be billed to [facility] and ANDERS was not sure. Adelfo also questioned in the event that pt went home, what would happen. ANDERS stated "it would not be safe for pt to discharge home and would need someone in the home 12/04". They saw this prior to admission and realize this but feels pushed by insurance to get him out sooner than later. Adelfo, who works in finance, questioned if they would be able to get a rolling machine operator automatic rate "because there is no way you can tell me that insurance companies are paying $2970 per day for care". ANDERS will plan to bring this up on the revenue call at 1100 and speak with the MAIL OPENER to see what options the family has financially in the event [facility] denies the peer to peer completed. All parties discussed placement options. It appears that Nhung had been looking into Independent options for placement and ANDERS felt that pt would be better suited at either an AL/Memory Care setting or a Memory Care setting. ANDERS discussed options in the [place] area; but warned they may have better luck expanding the search area. Adelfo questioned if moving towards [place] would be the smarter option and ANDERS explained that looking 45 minutes to an hours towards [place], [place] would definitely open up more options. ANDERS will send referrals out to the following: [facility] in [place], [facility] in [place], [facility], [facility], [facility], [facility], [facility] and [facility] to start.
--- NOTE | 2021-05-28 14:37 | NUR ---
Pt was pleasantly confused, cooperative, and medication compliant. Pt has been eating very well at meal times and taking medications whole. His called later this morning and had a positive conversation with her. Pt then hung out in the hallway with peers and listened to country music. After lunch he attended group outside and then came back inside for snack.
[2021-05-28 16:09] VITALS: BP 150/70
--- NOTE | 2021-05-28 16:31 | NUR ---
ANDERS had the following email correspondence with pt family: "In discussions on Revenue this morning and with the DISTILLATION OPERATOR HELPER and COORDINATE MEASURING EQUIPMENT OPERATOR this afternoon, I hope that I have covered all the questions and concerns on your behalf. In the event that [employer] denies his stay, we would have to discharge him (as a Hum[employer] recipient) and then re-admit him in the computer system as a self-pay. The agreed amount they would like paid up from is $950 per day. The amount for the time you feel is allotted for placement purposes must be paid up front. So if another week is feasible and we think we can get placement settled, then that would be $6,650 up front for the week or 5 days = $4,750. That is the regional operations director that we give Medicare patients and they will extend that offer to you. Physician claims are billed out separately. They can bill [employer] to see if [employer] will pay for their provided services. If [employer] refuses, the billing for physicians will be submitted to the patient/patient family. Supplemental plans only brick picker whatever [employer] does not pay. For example, [facility]o is here for 12 days. The [employer] Medicare rate is $1100 per day = $13,200 for 12 days. In the event that [employer] only pays $10,200, the supplemental may brick picker the other $3,000 leaving a zero balance for the bill. If [employer] denies the stay, supplemental insurance does not continue to pay. Their obligation stops when [employer] stops. I have sent all those referrals today; Brandon Nunez has already said no. But I have not heard back from the others but do anticipate getting answers tomorrow. Please let me know if you have any further questions or concerns". ANDERS to follow up with the family tomorrow.
[2021-05-28] MEDS: traZODone 50 MG TABLET. PO SCH (19:56)
[2021-05-28] MEDS: risperiDONE 0.5 MG TABLET. PO SCH (19:56)
[2021-05-28] MEDS: MIRTAZAPINE 15 MG TABLET PO SCH (19:56)
--- NOTE | 2021-05-29 01:31 | NUR ---
Last evening pt was pleasantly confused and cooperative with staff. He took HS meds whole and was cooperative with cares. 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 He wanted to talk to his niece-DPOA, call was placed with no answer. Since going to bed he has been sleeping and has had no behaviors tonight.
[2021-05-29 07:00] VITALS: BP 161/74
[2021-05-29] MEDS: SERTRALINE 50 MG TABLET. PO SCH (08:19)
[2021-05-29] MEDS: TAMSULOSIN 0.4 MG CAP.ER.24H. PO SCH (08:19)
[2021-05-29] MEDS: amLODIPine BESYLATE 10 MG TABLET PO SCH (08:19)
[2021-05-29] MEDS: LACTOBACILLUS RHAMNOSUS GG 1 CAPSULE. PO SCH ×2 (08:20→20:14)
[2021-05-29] MEDS: CARBIDOPA/LEVODOPA 25/100MG TABLET PO SCH ×3 (08:20→20:14)
--- NOTE | 2021-05-29 14:22 | NUR ---
Pt has been pleasantly confused, calm, and medication compliant. Pt has continued to eat 100% of his meals. He visits with other patients on the unit in between meals. Pt attended group outside and listened to old western music and told stories with other patients. Pt got multiple calls from family members and all the phone calls went very well.
[2021-05-29 15:48] VITALS: BP 132/69
[2021-05-29] MEDS: traZODone 50 MG TABLET. PO SCH (20:14)
[2021-05-29] MEDS: MIRTAZAPINE 15 MG TABLET PO SCH (20:14)
[2021-05-29] MEDS: risperiDONE 0.5 MG TABLET. PO SCH (20:14)
--- NOTE | 2021-05-29 21:44 | PDOC ---
Exam Note: Ben Note: Please also refer to the separate dictated note~for this date of service dictated separately.~Patient seen individually. Discussed the patient with Nursing staff reviewed the chart.~Reviewed interim history and current functioning. Reviewed vital signs,~Labs/ Radiology~and current medications noted below. Continue current treatment with the changes noted in the dictated addendum note Assessment: Vital Signs/I&O: Vital Signs Date Time Temp Pulse Resp B/P (MAP) Pulse Ox O2 Delivery O2 Flow Rate FiO2 05/29/21 15:48 97.0 52 18 132/69 (90) 97 I & O 05/28/21 05/28/21 05/29/21 15:00 23:00 07:00 Intake Total 840 ml 480 ml Balance 840 ml 480 ml Current Medications: Meds: Current Medications Medications (Trade) Dose Ordered Sig/Angy Route PRN Reason Start Time Stop Time Status Last Admin Dose Admin Acetaminophen (Tylenol) 650 mg PRN Q4HRS PRN PO MILD PAIN / TEMP > 100.3'F 05/16/21 16:30 Amlodipine Besylate (Norvasc) 10 mg DAILY PO 05/17/21 09:00 05/29/21 08:19 Levofloxacin (Levaquin) 750 mg DAILY PO 05/17/21 09:00 05/21/21 21:00 DC 05/21/21 08:57 Olanzapine (ZyPREXA ZYDIS) 5 mg PRN BID PRN PO PSYCHOSIS 05/16/21 16:30 05/22/21 23:00 Quetiapine Fumarate (SEROquel) 50 mg QHS PO 05/16/21 21:00 05/19/21 12:13 DC 05/18/21 20:59 Tamsulosin HCl (Flomax) 0.4 mg DAILY PO 05/17/21 09:00 05/29/21 08:19 Artificial Tears (Refresh Classic) 1 drop PRN DAILY PRN OU DRY EYE 05/16/21 17:00 05/27/21 08:37 Multi-Ingredient Ointment (Analgesic [place]) 1 radha PRN QID PRN TP MUSCLE PAIN 05/16/21 16:45 Al Hydroxide/Mg Hydroxide (Mylanta Plus Xs) 15 ml PRN AFTMEALHC PRN PO DYSPEPSIA 05/16/21 16:45 Magnesium Hydroxide (Milk Of Magnesia) 2,400 mg PRN QHS PRN PO CONSTIPATION 05/16/21 16:45 Lactobacillus Rhamnosus (Culturelle) 1 cap BID PO 05/18/21 21:00 05/29/21 20:14 Mirtazapine (Remeron) 7.5 mg QHS PO 05/19/21 21:00 05/21/21 16:17 DC 05/20/21 20:11 Sertraline HCl (Zoloft) 25 mg DAILY PO 05/20/21 09:00 05/27/21 01:09 DC 05/26/21 08:21 Risperidone (RisperDAL) 0.5 mg QHS PO 05/19/21 21:00 05/29/21 20:14 Carbidopa/Levodopa (Sinemet 25/100) 1 tab BID PO 05/21/21 21:00 05/27/21 18:06 DC 05/27/21 08:30 Mirtazapine (Remeron) 15 mg QHS PO 05/21/21 21:00 05/29/21 20:14 Trazodone HCl (Desyrel) 50 mg PRN QHS PRN PO INSOMNIA 05/21/21 16:15 05/26/21 23:11 Lorazepam (Ativan Intensol) 0.5 mg PRN Q1HR PRN SL ANXIETY / AGITATION 05/21/21 23:15 Trazodone HCl (Desyrel) 50 mg QHS PO 05/26/21 21:00 05/29/21 20:14 Sertraline HCl (Zoloft) 25 mg DAILY PO 05/27/21 09:00 05/27/21 01:09 DC Sertraline HCl (Zoloft) 50 mg DAILY PO 05/30/21 09:00 05/27/21 01:09 DC Sertraline HCl (Zoloft) 50 mg DAILY PO 05/27/21 09:00 05/29/21 08:19 Carbidopa/Levodopa (Sinemet 25/100) 1 tab TID PO 05/27/21 21:00 05/29/21 20:14 I have reviewed the current psychotropics carefully including drug interactions. Risk benefit ratio favors no change other than as noted in my dictated progress note. 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
--- NOTE | 2021-05-30 00:45 | NUR ---
PRN phyllis guidry given. Pt has been up to void numerous times since going to bed and has wet the bed. He is getting upset with staff and thinks we think it is funny that he wet the bed. Pt reassured we do not find this funny and returned to bed.
[2021-05-30 06:06] VITALS: BP 163/70
[2021-05-30] MEDS: CARBIDOPA/LEVODOPA 25/100MG TABLET PO SCH ×3 (08:15→19:52)
[2021-05-30] MEDS: amLODIPine BESYLATE 10 MG TABLET PO SCH (08:16)
[2021-05-30] MEDS: SERTRALINE 50 MG TABLET. PO SCH (08:16)
[2021-05-30] MEDS: LACTOBACILLUS RHAMNOSUS GG 1 CAPSULE. PO SCH ×2 (08:16→19:52)
[2021-05-30] MEDS: TAMSULOSIN 0.4 MG CAP.ER.24H. PO SCH (08:17)
[2021-05-30] MEDS ORDERED: SERTRALINE 50 MG TABLET. PO SCH (09:00)
[2021-05-30 14:06] LABS: BILIRUBIN,URINE NEG (NEG); CLARITY,URINE CLEAR; COLOR,URINE YELLOW; GLUCOSE,URINE NEG (NEG); NITRITE,URINE NEG (NEG); UROBILINOGEN,URINE 0.2 mg/dL (0.2 mg/dL)
[2021-05-30 14:09] LABS: BACTERIA,URINE FEW /HPF (0-FEW); HYALINE CASTS, URINE OCC /HPF; RBC,URINE OCC /HPF (0-2); SQUAMOUS EPITHELIAL CELL,UR FEW /LPF
[2021-05-30 15:49] VITALS: BP 118/70
[2021-05-30] MEDS: MIRTAZAPINE 15 MG TABLET PO SCH (19:52)
[2021-05-30] MEDS: traZODone 50 MG TABLET. PO SCH (19:52)
[2021-05-30] MEDS: risperiDONE 0.5 MG TABLET. PO SCH (19:52)
--- NOTE | 2021-05-30 21:59 | PDOC ---
Exam Note: Ben Note: Please also refer to the separate dictated note~for this date of service dictated separately.~Patient seen individually. Discussed the patient with Nursing staff reviewed the chart.~Reviewed interim history and current functioning. Reviewed vital signs,~Labs/ Radiology~and current medications noted below. Continue current treatment with the changes noted in the dictated addendum note Assessment: Vital Signs/I&O: Vital Signs Date Time Temp Pulse Resp B/P (MAP) Pulse Ox O2 Delivery O2 Flow Rate FiO2 05/30/21 15:49 97.5 77 19 118/70 (86) 97 I & O 05/29/21 05/29/21 05/30/21 15:00 23:00 07:00 Intake Total 930 ml 720 ml Balance 930 ml 720 ml Labs: Laboratory Tests Test 05/30/21 13:47 Urine Collection Type Unknown Urine Color Yellow Urine Clarity Clear Urine pH 5.5 Urine Specific Loyal 1.025 Urine Protein Neg (NEG-TRACE) Urine Glucose (UA) Neg mg/dL (NEG) Urine Ketones (Stick) Trace mg/dL (NEG) Urine Blood Neg (NEG) Urine Nitrite Neg (NEG) Urine Bilirubin Neg (NEG) Urine Urobilinogen Dipstick 0.2 mg/dL (0.2 mg/dL) Urine Leukocyte Esterase Neg (NEG) Urine RBC Occ /HPF (0-2) Urine WBC 1-4 /HPF (0-4) Urine Squamous Epithelial Cells Few /LPF Urine Bacteria Few /HPF (0-FEW) Urine Hyaline Casts Occ /HPF Urine Mucus Mod /LPF Current Medications: Meds: Laboratory Tests Test 05/30/21 13:47 Urine Collection Type Unknown Urine Color Yellow Urine Clarity Clear Urine pH 5.5 Urine Specific Loyal 1.025 Urine Protein Neg Urine Glucose (UA) Neg mg/dL Urine Ketones (Stick) Trace mg/dL Urine Blood Neg Urine Nitrite Neg Urine Bilirubin Neg Urine Urobilinogen Dipstick 0.2 mg/dL Urine Leukocyte Esterase Neg Urine RBC Occ /HPF Urine WBC 1-4 /HPF Urine Squamous Epithelial Cells Few /LPF Urine Bacteria Few /HPF Urine Hyaline Casts Occ /HPF Urine Mucus Mod /LPF Current Medications Medications (Trade) Dose Ordered Sig/Angy Route PRN Reason Start Time Stop Time Status Last Admin Dose Admin Acetaminophen (Tylenol) 650 mg PRN Q4HRS PRN PO MILD PAIN / TEMP > 100.3'F 05/16/21 16:30 Amlodipine Besylate (Norvasc) 10 mg DAILY PO 05/17/21 09:00 05/30/21 08:16 Levofloxacin (Levaquin) 750 mg DAILY PO 05/17/21 09:00 05/21/21 21:00 DC 05/21/21 08:57 Olanzapine (ZyPREXA ZYDIS) 5 mg PRN BID PRN PO PSYCHOSIS 05/16/21 16:30 05/30/21 00:42 Quetiapine Fumarate (SEROquel) 50 mg QHS PO 05/16/21 21:00 05/19/21 12:13 DC 05/18/21 20:59 Tamsulosin HCl (Flomax) 0.4 mg DAILY PO 05/17/21 09:00 05/30/21 08:17 Artificial Tears (Refresh Classic) 1 drop PRN DAILY PRN OU DRY EYE 05/16/21 17:00 05/27/21 08:37 Multi-Ingredient Ointment (Analgesic [place]) 1 radha PRN QID PRN TP MUSCLE PAIN 05/16/21 16:45 Al Hydroxide/Mg Hydroxide (Mylanta Plus Xs) 15 ml PRN AFTMEALHC PRN PO DYSPEPSIA 05/16/21 16:45 Magnesium Hydroxide (Milk Of Magnesia) 2,400 mg PRN QHS PRN PO CONSTIPATION 05/16/21 16:45 Lactobacillus Rhamnosus (Culturelle) 1 cap BID PO 05/18/21 21:00 05/30/21 19:52 Mirtazapine (Remeron) 7.5 mg QHS PO 05/19/21 21:00 05/21/21 16:17 DC 05/20/21 20:11 Sertraline HCl (Zoloft) 25 mg DAILY PO 05/20/21 09:00 05/27/21 01:09 DC 05/26/21 08:21 Risperidone (RisperDAL) 0.5 mg QHS PO 05/19/21 21:00 05/30/21 19:52 Carbidopa/Levodopa (Sinemet 25/100) 1 tab BID PO 05/21/21 21:00 05/27/21 18:06 DC 05/27/21 08:30 Mirtazapine (Remeron) 15 mg QHS PO 05/21/21 21:00 05/30/21 19:52 Trazodone HCl (Desyrel) 50 mg PRN QHS PRN PO INSOMNIA 05/21/21 16:15 05/26/21 23:11 Lorazepam (Ativan Intensol) 0.5 mg PRN Q1HR PRN SL ANXIETY / AGITATION 05/21/21 23:15 Trazodone HCl (Desyrel) 50 mg QHS PO 05/26/21 21:00 05/30/21 19:52 Sertraline HCl (Zoloft) 25 mg DAILY PO 05/27/21 09:00 05/27/21 01:09 DC Sertraline HCl (Zoloft) 50 mg DAILY PO 05/30/21 09:00 05/27/21 01:09 DC Sertraline HCl (Zoloft) 50 mg DAILY PO 05/27/21 09:00 05/30/21 08:16 Carbidopa/Levodopa (Sinemet 25/100) 1 tab TID PO 05/27/21 21:00 05/30/21 19:52 I have reviewed the current psychotropics carefully including drug interactions. Risk benefit ratio favors no change other than as noted in my dictated progress note. 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
[2021-05-31 05:55] VITALS: BP 133/53
[2021-05-31] MEDS: CARBIDOPA/LEVODOPA 25/100MG TABLET PO SCH ×3 (09:47→20:29)
[2021-05-31] MEDS: LACTOBACILLUS RHAMNOSUS GG 1 CAPSULE. PO SCH ×2 (09:47→20:29)
[2021-05-31] MEDS: TAMSULOSIN 0.4 MG CAP.ER.24H. PO SCH (09:48)
[2021-05-31] MEDS: amLODIPine BESYLATE 10 MG TABLET PO SCH (09:48)
[2021-05-31] MEDS: SERTRALINE 50 MG TABLET. PO SCH (09:48)
--- NOTE | 2021-05-31 15:17 | NUR ---
Pt up adl to meals with walker. Has been pleasantly confused. Compliant with meds and cares.
[2021-05-31 15:36] VITALS: BP 130/64
[2021-05-31] MEDS: traZODone 50 MG TABLET. PO SCH (20:29)
[2021-05-31] MEDS: MIRTAZAPINE 15 MG TABLET PO SCH (20:30)
[2021-05-31] MEDS: risperiDONE 0.5 MG TABLET. PO SCH (20:30)
--- NOTE | 2021-05-31 22:02 | PDOC ---
Exam Note: Ben Note: Please also refer to the separate dictated note~for this date of service dictated separately.~Patient seen individually. Discussed the patient with Nursing staff reviewed the chart.~Reviewed interim history and current functioning. Reviewed vital signs,~Labs/ Radiology~and current medications noted below. Continue current treatment with the changes noted in the dictated addendum note Assessment: Vital Signs/I&O: Vital Signs Date Time Temp Pulse Resp B/P (MAP) Pulse Ox O2 Delivery O2 Flow Rate FiO2 05/31/21 15:36 97.3 54 18 130/64 (86) 97 Room Air I & O 05/30/21 05/30/21 05/31/21 15:00 23:00 07:00 Intake Total 730 ml 610 ml Balance 730 ml 610 ml Current Medications: Meds: Current Medications Medications (Trade) Dose Ordered Sig/Angy Route PRN Reason Start Time Stop Time Status Last Admin Dose Admin Acetaminophen (Tylenol) 650 mg PRN Q4HRS PRN PO MILD PAIN / TEMP > 100.3'F 05/16/21 16:30 Amlodipine Besylate (Norvasc) 10 mg DAILY PO 05/17/21 09:00 05/31/21 09:48 Levofloxacin (Levaquin) 750 mg DAILY PO 05/17/21 09:00 05/21/21 21:00 DC 05/21/21 08:57 Olanzapine (ZyPREXA ZYDIS) 5 mg PRN BID PRN PO PSYCHOSIS 05/16/21 16:30 05/30/21 00:42 Quetiapine Fumarate (SEROquel) 50 mg QHS PO 05/16/21 21:00 05/19/21 12:13 DC 05/18/21 20:59 Tamsulosin HCl (Flomax) 0.4 mg DAILY PO 05/17/21 09:00 05/31/21 09:48 Artificial Tears (Refresh Classic) 1 drop PRN DAILY PRN OU DRY EYE 05/16/21 17:00 05/27/21 08:37 Multi-Ingredient Ointment (Analgesic [place]) 1 radha PRN QID PRN TP MUSCLE PAIN 05/16/21 16:45 Al Hydroxide/Mg Hydroxide (Mylanta Plus Xs) 15 ml PRN AFTMEALHC PRN PO DYSPEPSIA 05/16/21 16:45 Magnesium Hydroxide (Milk Of Magnesia) 2,400 mg PRN QHS PRN PO CONSTIPATION 05/16/21 16:45 Lactobacillus Rhamnosus (Culturelle) 1 cap BID PO 05/18/21 21:00 05/31/21 20:29 Mirtazapine (Remeron) 7.5 mg QHS PO 05/19/21 21:00 05/21/21 16:17 DC 05/20/21 20:11 Sertraline HCl (Zoloft) 25 mg DAILY PO 05/20/21 09:00 05/27/21 01:09 DC 05/26/21 08:21 Risperidone (RisperDAL) 0.5 mg QHS PO 05/19/21 21:00 05/31/21 20:30 Carbidopa/Levodopa (Sinemet 25/100) 1 tab BID PO 05/21/21 21:00 05/27/21 18:06 DC 05/27/21 08:30 Mirtazapine (Remeron) 15 mg QHS PO 05/21/21 21:00 05/31/21 20:30 Trazodone HCl (Desyrel) 50 mg PRN QHS PRN PO INSOMNIA 05/21/21 16:15 05/26/21 23:11 Lorazepam (Ativan Intensol) 0.5 mg PRN Q1HR PRN SL ANXIETY / AGITATION 05/21/21 23:15 Trazodone HCl (Desyrel) 50 mg QHS PO 05/26/21 21:00 05/31/21 20:29 Sertraline HCl (Zoloft) 25 mg DAILY PO 05/27/21 09:00 05/27/21 01:09 DC Sertraline HCl (Zoloft) 50 mg DAILY PO 05/30/21 09:00 05/27/21 01:09 DC Sertraline HCl (Zoloft) 50 mg DAILY PO 05/27/21 09:00 05/31/21 09:48 Carbidopa/Levodopa (Sinemet 25/100) 1 tab TID PO 05/27/21 21:00 05/31/21 20:29 I have reviewed the current psychotropics carefully including drug interactions. Risk benefit ratio favors no change other than as noted in my dictated progress note. 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
--- NOTE | 2021-05-31 23:05 | NUR ---
Patient sitting in a chair outside his room on assumption of care. He is in pleasant spirits this evening, no agitation. Alert to name, , current date. Compliant with assessments and medications whole. No delusions voiced so far this shift. He appears to be sleeping comfortably at present time. Will continue to monitor.
[2021-06-01 06:08] VITALS: BP 174/72
[2021-06-01] MEDS: LACTOBACILLUS RHAMNOSUS GG 1 CAPSULE. PO SCH ×2 (08:33→20:15)
[2021-06-01] MEDS: SERTRALINE 50 MG TABLET. PO SCH (08:34)
[2021-06-01] MEDS: amLODIPine BESYLATE 10 MG TABLET PO SCH (08:34)
[2021-06-01] MEDS: CARBIDOPA/LEVODOPA 25/100MG TABLET PO SCH ×3 (08:34→20:15)
[2021-06-01] MEDS: TAMSULOSIN 0.4 MG CAP.ER.24H. PO SCH (08:34)
--- NOTE | 2021-06-01 09:38 | NUR ---
Nurse Note Patient alert oriented to self. Ambulates with walker, steady gait. Speech is clear make needs known. Appetite is adequate can feed self, assist with ADLs. Patient is complaint with medication. No complaints of pain or discomfort. No behaviors noted at this time.
[2021-06-01 13:22] LABS: ALBUMIN 3.2 g/dL (3.4-5.0); ALBUMIN/GLOBULIN RATIO 0.9 (1.0-1.7); BASO # 0.1 x10^3/uL (0.0-0.2); BASO % 1 % (0-3); EOS # 0.2 x10^3/uL (0.0-0.7); EOS % 3 % (0-3); GFR 71.7; HEMATOCRIT 36.4 % (39.0-53.0); HEMOGLOBIN 12.1 g/dL (13.0-17.5); LYMPH % 23 % (24-48); MEAN CORPUSCULAR HEMOGLOBIN 31 pg (25-35); MEAN CORPUSCULAR HGB CONC 33 g/dL (31-37); MEAN CORPUSCULAR VOLUME 92 fL (79-100); MONO # 1.1 x10^3/uL (0.0-1.1); MONO % 13 % (0-9); NEUT # 5.2 x10^3uL (1.8-7.7); NEUT % 60 % (31-73); PLATELET COUNT 265 x10^3/uL (140-400); POTASSIUM 3.7 mmol/L (3.5-5.1); RED BLOOD COUNT 3.95 x10^6/uL (4.30-5.70); RED CELL DISTRIBUTION WIDTH 14.7 % (11.5-14.5); TOTAL BILIRUBIN 0.3 mg/dL (0.2-1.0); TOTAL PROTEIN 6.6 g/dL (6.4-8.2); WHITE BLOOD COUNT 8.6 x10^3/uL (4.0-11.0)
[2021-06-01 16:27] VITALS: BP 168/80
[2021-06-01] MEDS: traZODone 50 MG TABLET. PO SCH (20:15)
[2021-06-01] MEDS: MIRTAZAPINE 15 MG TABLET PO SCH (20:15)
[2021-06-01] MEDS: risperiDONE 0.5 MG TABLET. PO SCH (20:15)
--- NOTE | 2021-06-01 22:08 | PDOC ---
Exam Note: Ben Note: Please also refer to the separate dictated note~for this date of service dictated separately.~Patient seen individually. Discussed the patient with Nursing staff reviewed the chart.~Reviewed interim history and current functioning. Reviewed vital signs,~Labs/ Radiology~and current medications noted below. Continue current treatment with the changes noted in the dictated addendum note Assessment: Vital Signs/I&O: Vital Signs Date Time Temp Pulse Resp B/P (MAP) Pulse Ox O2 Delivery O2 Flow Rate FiO2 06/01/21 16:27 97.6 61 18 168/80 (109) 99 05/31/21 15:36 Room Air I & O 05/31/21 05/31/21 06/01/21 15:00 23:00 07:00 Intake Total 960 ml 360 ml Balance 960 ml 360 ml Labs: Laboratory Tests Test 06/01/21 12:50 White Blood Count 8.6 x10^3/uL (4.0-11.0) Red Blood Count 3.95 x10^6/uL (4.30-5.70) L Hemoglobin 12.1 g/dL (13.0-17.5) L Hematocrit 36.4 % (39.0-53.0) L Mean Corpuscular Volume 92 fL (79-100) Mean Corpuscular Hemoglobin 31 pg (25-35) Mean Corpuscular Hemoglobin Concent 33 g/dL (31-37) Red Cell Distribution Width 14.7 % (11.5-14.5) H Platelet Count 265 x10^3/uL (140-400) Neutrophils (%) (Auto) 60 % (31-73) Lymphocytes (%) (Auto) 23 % (24-48) L Monocytes (%) (Auto) 13 % (0-9) H Eosinophils (%) (Auto) 3 % (0-3) Basophils (%) (Auto) 1 % (0-3) Neutrophils # (Auto) 5.2 x10^3uL (1.8-7.7) Lymphocytes # (Auto) 2.0 x10^3/uL (1.0-4.8) Monocytes # (Auto) 1.1 x10^3/uL (0.0-1.1) Eosinophils # (Auto) 0.2 x10^3/uL (0.0-0.7) Basophils # (Auto) 0.1 x10^3/uL (0.0-0.2) Sodium Level 140 mmol/L (136-145) Potassium Level 3.7 mmol/L (3.5-5.1) Chloride Level 103 mmol/L (98-107) Carbon Dioxide Level 29 mmol/L (21-32) Anion Gap 8 (6-14) Blood Urea Nitrogen 19 mg/dL (8-26) Creatinine 1.0 mg/dL (0.7-1.3) Estimated GFR (Cockcroft-Gault) 71.7 BUN/Creatinine Ratio 19 (6-20) Glucose Level 138 mg/dL (70-99) H Calcium Level 8.0 mg/dL (8.5-10.1) L Total Bilirubin 0.3 mg/dL (0.2-1.0) Aspartate Amino Transferase (AST) 21 U/L (15-37) Alanine Aminotransferase (ALT) 15 U/L (16-63) L Alkaline Phosphatase 106 U/L (46-116) Total Protein 6.6 g/dL (6.4-8.2) Albumin 3.2 g/dL (3.4-5.0) L Albumin/Globulin Ratio 0.9 (1.0-1.7) L Current Medications: Meds: Laboratory Tests Test 06/01/21 12:50 White Blood Count 8.6 x10^3/uL Red Blood Count 3.95 x10^6/uL Hemoglobin 12.1 g/dL Hematocrit 36.4 % Mean Corpuscular Volume 92 fL Mean Corpuscular Hemoglobin 31 pg Mean Corpuscular Hemoglobin Concent 33 g/dL Red Cell Distribution Width 14.7 % Platelet Count 265 x10^3/uL Neutrophils (%) (Auto) 60 % Lymphocytes (%) (Auto) 23 % Monocytes (%) (Auto) 13 % Eosinophils (%) (Auto) 3 % Basophils (%) (Auto) 1 % Neutrophils # (Auto) 5.2 x10^3uL Lymphocytes # (Auto) 2.0 x10^3/uL Monocytes # (Auto) 1.1 x10^3/uL Eosinophils # (Auto) 0.2 x10^3/uL Basophils # (Auto) 0.1 x10^3/uL Sodium Level 140 mmol/L Potassium Level 3.7 mmol/L Chloride Level 103 mmol/L Carbon Dioxide Level 29 mmol/L Anion Gap 8 Blood Urea Nitrogen 19 mg/dL Creatinine 1.0 mg/dL Estimated GFR (Cockcroft-Gault) 71.7 BUN/Creatinine Ratio 19 Glucose Level 138 mg/dL Calcium Level 8.0 mg/dL Total Bilirubin 0.3 mg/dL Aspartate Amino Transf (AST/SGOT) 21 U/L Alanine Aminotransferase (ALT/SGPT) 15 U/L Alkaline Phosphatase 106 U/L Total Protein 6.6 g/dL Albumin 3.2 g/dL Albumin/Globulin Ratio 0.9 Current Medications Medications (Trade) Dose Ordered Sig/Angy Route PRN Reason Start Time Stop Time Status Last Admin Dose Admin Acetaminophen (Tylenol) 650 mg PRN Q4HRS PRN PO MILD PAIN / TEMP > 100.3'F 05/16/21 16:30 Amlodipine Besylate (Norvasc) 10 mg DAILY PO 05/17/21 09:00 06/01/21 08:34 Levofloxacin (Levaquin) 750 mg DAILY PO 05/17/21 09:00 05/21/21 21:00 DC 05/21/21 08:57 Olanzapine (ZyPREXA ZYDIS) 5 mg PRN BID PRN PO PSYCHOSIS 05/16/21 16:30 05/30/21 00:42 Quetiapine Fumarate (SEROquel) 50 mg QHS PO 05/16/21 21:00 05/19/21 12:13 DC 05/18/21 20:59 Tamsulosin HCl (Flomax) 0.4 mg DAILY PO 05/17/21 09:00 06/01/21 08:34 Artificial Tears (Refresh Classic) 1 drop PRN DAILY PRN OU DRY EYE 05/16/21 17:00 05/27/21 08:37 Multi-Ingredient Ointment (Analgesic [place]) 1 radha PRN QID PRN TP MUSCLE PAIN 05/16/21 16:45 Al Hydroxide/Mg Hydroxide (Mylanta Plus Xs) 15 ml PRN AFTMEALHC PRN PO DYSPEPSIA 05/16/21 16:45 Magnesium Hydroxide (Milk Of Magnesia) 2,400 mg PRN QHS PRN PO CONSTIPATION 05/16/21 16:45 Lactobacillus Rhamnosus (Culturelle) 1 cap BID PO 05/18/21 21:00 06/01/21 20:15 Mirtazapine (Remeron) 7.5 mg QHS PO 05/19/21 21:00 05/21/21 16:17 DC 05/20/21 20:11 Sertraline HCl (Zoloft) 25 mg DAILY PO 05/20/21 09:00 05/27/21 01:09 DC 05/26/21 08:21 Risperidone (RisperDAL) 0.5 mg QHS PO 05/19/21 21:00 06/01/21 20:15 Carbidopa/Levodopa (Sinemet 25/100) 1 tab BID PO 05/21/21 21:00 05/27/21 18:06 DC 05/27/21 08:30 Mirtazapine (Remeron) 15 mg QHS PO 05/21/21 21:00 06/01/21 20:15 Trazodone HCl (Desyrel) 50 mg PRN QHS PRN PO INSOMNIA 05/21/21 16:15 05/26/21 23:11 Lorazepam (Ativan Intensol) 0.5 mg PRN Q1HR PRN SL ANXIETY / AGITATION 05/21/21 23:15 Trazodone HCl (Desyrel) 50 mg QHS PO 05/26/21 21:00 06/01/21 20:15 Sertraline HCl (Zoloft) 25 mg DAILY PO 05/27/21 09:00 05/27/21 01:09 DC Sertraline HCl (Zoloft) 50 mg DAILY PO 05/30/21 09:00 05/27/21 01:09 DC Sertraline HCl (Zoloft) 50 mg DAILY PO 05/27/21 09:00 06/01/21 08:34 Carbidopa/Levodopa (Sinemet 25/100) 1 tab TID PO 05/27/21 21:00 06/01/21 20:15 I have reviewed the current psychotropics carefully including drug interactions. Risk benefit ratio favors no change other than as noted in my dictated progress note. 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
--- NOTE | 2021-06-01 22:53 | NUR ---
Patient is in his room on assumption of care, awake in bed. He is in pleasant spirits this evening, no agitation. Compliant with assessments and medications whole. No delusions voiced so far this shift. He appears to be sleeping comfortably at present time. Will continue to monitor.
[2021-06-02 06:20] VITALS: BP 175/84
--- NOTE | 2021-06-02 09:15 | PDOC ---
Exam Note: Ben Note: This note is a late entry for 05/29/2021 covers elements not covered in my initial note. Subjective: The patient was reviewed on telehealth rounds in the evening of 05/29/2021 because of the COVID-19 pandemic and my own ill health and restrictions to be on the unit consequent to this with Edwin ENCINAS, discussed and reviewed the chart. The patient slept 7-3/4 hours previous night. He has been cooperative. He is much more alert, oriented, and pleasant. Review of Systems: Ambulation impaired with walker. No CV, , pulmonary, eye, ENT system symptoms on review. Mental Status Exam: The patient is oriented to himself and situation. He does appear more oriented and alert as compared to a few days back. Speech coherent. He is pleasant, smiling. Abstraction fair. Computation impaired. Language function intact. Mood and affect improved. Laboratory Data: Reviewed. Impression: Major depressive disorder with psychotic features. Mild cognitive impairment versus major neurocognitive disorder Alzheimer, vascular with delusion, depression. Anxiety disorder, unspecified. Impulse control disorder, unspecified. Plan: Continue current psychotropics. Assessment: Vital Signs/I&O: Vital Signs Date Time Temp Pulse Resp B/P (MAP) Pulse Ox O2 Delivery O2 Flow Rate FiO2 06/02/21 06:20 97.6 68 16 175/84 (114) 97 05/31/21 15:36 Room Air I & O 06/01/21 06/01/21 06/02/21 15:00 23:00 07:00 Intake Total 720 ml 480 ml Balance 720 ml 480 ml Labs: Laboratory Tests Test 06/01/21 12:50 White Blood Count 8.6 x10^3/uL (4.0-11.0) Red Blood Count 3.95 x10^6/uL (4.30-5.70) L Hemoglobin 12.1 g/dL (13.0-17.5) L Hematocrit 36.4 % (39.0-53.0) L Mean Corpuscular Volume 92 fL (79-100) Mean Corpuscular Hemoglobin 31 pg (25-35) Mean Corpuscular Hemoglobin Concent 33 g/dL (31-37) Red Cell Distribution Width 14.7 % (11.5-14.5) H Platelet Count 265 x10^3/uL (140-400) Neutrophils (%) (Auto) 60 % (31-73) Lymphocytes (%) (Auto) 23 % (24-48) L Monocytes (%) (Auto) 13 % (0-9) H Eosinophils (%) (Auto) 3 % (0-3) Basophils (%) (Auto) 1 % (0-3) Neutrophils # (Auto) 5.2 x10^3uL (1.8-7.7) Lymphocytes # (Auto) 2.0 x10^3/uL (1.0-4.8) Monocytes # (Auto) 1.1 x10^3/uL (0.0-1.1) Eosinophils # (Auto) 0.2 x10^3/uL (0.0-0.7) Basophils # (Auto) 0.1 x10^3/uL (0.0-0.2) Sodium Level 140 mmol/L (136-145) Potassium Level 3.7 mmol/L (3.5-5.1) Chloride Level 103 mmol/L (98-107) Carbon Dioxide Level 29 mmol/L (21-32) Anion Gap 8 (6-14) Blood Urea Nitrogen 19 mg/dL (8-26) Creatinine 1.0 mg/dL (0.7-1.3) Estimated GFR (Cockcroft-Gault) 71.7 BUN/Creatinine Ratio 19 (6-20) Glucose Level 138 mg/dL (70-99) H Calcium Level 8.0 mg/dL (8.5-10.1) L Total Bilirubin 0.3 mg/dL (0.2-1.0) Aspartate Amino Transferase (AST) 21 U/L (15-37) Alanine Aminotransferase (ALT) 15 U/L (16-63) L Alkaline Phosphatase 106 U/L (46-116) Total Protein 6.6 g/dL (6.4-8.2) Albumin 3.2 g/dL (3.4-5.0) L Albumin/Globulin Ratio 0.9 (1.0-1.7) L Current Medications: Meds: Laboratory Tests Test 06/01/21 12:50 White Blood Count 8.6 x10^3/uL Red Blood Count 3.95 x10^6/uL Hemoglobin 12.1 g/dL Hematocrit 36.4 % Mean Corpuscular Volume 92 fL Mean Corpuscular Hemoglobin 31 pg Mean Corpuscular Hemoglobin Concent 33 g/dL Red Cell Distribution Width 14.7 % Platelet Count 265 x10^3/uL Neutrophils (%) (Auto) 60 % Lymphocytes (%) (Auto) 23 % Monocytes (%) (Auto) 13 % Eosinophils (%) (Auto) 3 % Basophils (%) (Auto) 1 % Neutrophils # (Auto) 5.2 x10^3uL Lymphocytes # (Auto) 2.0 x10^3/uL Monocytes # (Auto) 1.1 x10^3/uL Eosinophils # (Auto) 0.2 x10^3/uL Basophils # (Auto) 0.1 x10^3/uL Sodium Level 140 mmol/L Potassium Level 3.7 mmol/L Chloride Level 103 mmol/L Carbon Dioxide Level 29 mmol/L Anion Gap 8 Blood Urea Nitrogen 19 mg/dL Creatinine 1.0 mg/dL Estimated GFR (Cockcroft-Gault) 71.7 BUN/Creatinine Ratio 19 Glucose Level 138 mg/dL Calcium Level 8.0 mg/dL Total Bilirubin 0.3 mg/dL Aspartate Amino Transf (AST/SGOT) 21 U/L Alanine Aminotransferase (ALT/SGPT) 15 U/L Alkaline Phosphatase 106 U/L Total Protein 6.6 g/dL Albumin 3.2 g/dL Albumin/Globulin Ratio 0.9 Current Medications Medications (Trade) Dose Ordered Sig/Angy Route PRN Reason Start Time Stop Time Status Last Admin Dose Admin Acetaminophen (Tylenol) 650 mg PRN Q4HRS PRN PO MILD PAIN / TEMP > 100.3'F 05/16/21 16:30 Amlodipine Besylate (Norvasc) 10 mg DAILY PO 05/17/21 09:00 06/01/21 08:34 Levofloxacin (Levaquin) 750 mg DAILY PO 05/17/21 09:00 05/21/21 21:00 DC 05/21/21 08:57 Olanzapine (ZyPREXA ZYDIS) 5 mg PRN BID PRN PO PSYCHOSIS 05/16/21 16:30 05/30/21 00:42 Quetiapine Fumarate (SEROquel) 50 mg QHS PO 05/16/21 21:00 05/19/21 12:13 DC 05/18/21 20:59 Tamsulosin HCl (Flomax) 0.4 mg DAILY PO 05/17/21 09:00 06/01/21 08:34 Artificial Tears (Refresh Classic) 1 drop PRN DAILY PRN OU DRY EYE 05/16/21 17:00 05/27/21 08:37 Multi-Ingredient Ointment (Analgesic [place]) 1 radha PRN QID PRN TP MUSCLE PAIN 05/16/21 16:45 Al Hydroxide/Mg Hydroxide (Mylanta Plus Xs) 15 ml PRN AFTMEALHC PRN PO DYSPEPSIA 05/16/21 16:45 Magnesium Hydroxide (Milk Of Magnesia) 2,400 mg PRN QHS PRN PO CONSTIPATION 05/16/21 16:45 Lactobacillus Rhamnosus (Culturelle) 1 cap BID PO 05/18/21 21:00 06/01/21 20:15 Mirtazapine (Remeron) 7.5 mg QHS PO 05/19/21 21:00 05/21/21 16:17 DC 05/20/21 20:11 Sertraline HCl (Zoloft) 25 mg DAILY PO 05/20/21 09:00 05/27/21 01:09 DC 05/26/21 08:21 Risperidone (RisperDAL) 0.5 mg QHS PO 05/19/21 21:00 06/01/21 20:15 Carbidopa/Levodopa (Sinemet 25/100) 1 tab BID PO 05/21/21 21:00 05/27/21 18:06 DC 05/27/21 08:30 Mirtazapine (Remeron) 15 mg QHS PO 05/21/21 21:00 06/01/21 20:15 Trazodone HCl (Desyrel) 50 mg PRN QHS PRN PO INSOMNIA 05/21/21 16:15 05/26/21 23:11 Lorazepam (Ativan Intensol) 0.5 mg PRN Q1HR PRN SL ANXIETY / AGITATION 05/21/21 23:15 Trazodone HCl (Desyrel) 50 mg QHS PO 05/26/21 21:00 06/01/21 20:15 Sertraline HCl (Zoloft) 25 mg DAILY PO 05/27/21 09:00 05/27/21 01:09 DC Sertraline HCl (Zoloft) 50 mg DAILY PO 05/30/21 09:00 05/27/21 01:09 DC Sertraline HCl (Zoloft) 50 mg DAILY PO 05/27/21 09:00 06/01/21 08:34 Carbidopa/Levodopa (Sinemet 25/100) 1 tab TID PO 05/27/21 21:00 06/01/21 20:15 I have reviewed the current psychotropics carefully including drug interactions. Risk benefit ratio favors no change other than as noted in my dictated progress note. 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
--- NOTE | 2021-06-02 09:30 | NUR ---
SW sent updated notes to [facility] as requested from last week. SW will follow up on their decision in hopes to have pt moved tomorrow if possible.
[2021-06-02] MEDS: SERTRALINE 50 MG TABLET. PO SCH (09:36)
[2021-06-02] MEDS: TAMSULOSIN 0.4 MG CAP.ER.24H. PO SCH (09:36)
[2021-06-02] MEDS: CARBIDOPA/LEVODOPA 25/100MG TABLET PO SCH ×3 (09:36→20:53)
[2021-06-02] MEDS: amLODIPine BESYLATE 10 MG TABLET PO SCH (09:36)
[2021-06-02] MEDS: LACTOBACILLUS RHAMNOSUS GG 1 CAPSULE. PO SCH ×2 (09:36→20:52)
--- NOTE | 2021-06-02 10:01 | NUR ---
Pt confused and disorganized this morning. He is A&O to self only, when asked his birthday he stated "August 31, 1840." Pt absent of SI/HI/VH/AH/delusions at this time. He appears calm and withdrawn primarily to his room. Absent of verbal/physical aggression at this time. He is compliant with whole medications. Plan of care continues, will pass to next shift.
--- NOTE | 2021-06-02 11:08 | PDOC ---
Exam Note: Ben Note: This note is a late entry for 05/30/2021 covers elements not covered in my initial note. Subjective: The patient was seen individually in the evening of 05/30/2021 with Edwin ENCINAS, discussed and reviewed the chart. The patient slept 5-1/2 hours previous night. He has been pleasant. UA is unremarkable. Patient is much more alert and oriented. Review of Systems: Ambulation impaired with walker. No CV, , pulmonary, eye, ENT system symptoms on review. Mental Status Exam: The patient is oriented to himself and situation. He is more oriented as compared to a few days back and quite positive change in the confusion. Speech coherent. He is pleasant, smiling. Abstraction fair. Com putation impaired. Language function intact. Mood and affect improved. Laboratory Data: Reviewed. Impression: Major depressive disorder with psychotic features. Mild cognitive impairment versus major neurocognitive disorder Alzheimer, vascular with delusion, depression. Anxiety disorder, unspecified. Impulse control disorder, unspecified. Plan: Continue current psychotropics. Assessment: Vital Signs/I&O: Vital Signs Date Time Temp Pulse Resp B/P (MAP) Pulse Ox O2 Delivery O2 Flow Rate FiO2 06/02/21 09:36 68 175/84 06/02/21 06:20 97.6 16 97 05/31/21 15:36 Room Air I & O 06/01/21 06/01/21 06/02/21 15:00 23:00 07:00 Intake Total 720 ml 480 ml Balance 720 ml 480 ml Labs: Laboratory Tests Test 06/01/21 12:50 White Blood Count 8.6 x10^3/uL (4.0-11.0) Red Blood Count 3.95 x10^6/uL (4.30-5.70) L Hemoglobin 12.1 g/dL (13.0-17.5) L Hematocrit 36.4 % (39.0-53.0) L Mean Corpuscular Volume 92 fL (79-100) Mean Corpuscular Hemoglobin 31 pg (25-35) Mean Corpuscular Hemoglobin Concent 33 g/dL (31-37) Red Cell Distribution Width 14.7 % (11.5-14.5) H Platelet Count 265 x10^3/uL (140-400) Neutrophils (%) (Auto) 60 % (31-73) Lymphocytes (%) (Auto) 23 % (24-48) L Monocytes (%) (Auto) 13 % (0-9) H Eosinophils (%) (Auto) 3 % (0-3) Basophils (%) (Auto) 1 % (0-3) Neutrophils # (Auto) 5.2 x10^3uL (1.8-7.7) Lymphocytes # (Auto) 2.0 x10^3/uL (1.0-4.8) Monocytes # (Auto) 1.1 x10^3/uL (0.0-1.1) Eosinophils # (Auto) 0.2 x10^3/uL (0.0-0.7) Basophils # (Auto) 0.1 x10^3/uL (0.0-0.2) Sodium Level 140 mmol/L (136-145) Potassium Level 3.7 mmol/L (3.5-5.1) Chloride Level 103 mmol/L (98-107) Carbon Dioxide Level 29 mmol/L (21-32) Anion Gap 8 (6-14) Blood Urea Nitrogen 19 mg/dL (8-26) Creatinine 1.0 mg/dL (0.7-1.3) Estimated GFR (Cockcroft-Gault) 71.7 BUN/Creatinine Ratio 19 (6-20) Glucose Level 138 mg/dL (70-99) H Calcium Level 8.0 mg/dL (8.5-10.1) L Total Bilirubin 0.3 mg/dL (0.2-1.0) Aspartate Amino Transferase (AST) 21 U/L (15-37) Alanine Aminotransferase (ALT) 15 U/L (16-63) L Alkaline Phosphatase 106 U/L (46-116) Total Protein 6.6 g/dL (6.4-8.2) Albumin 3.2 g/dL (3.4-5.0) L Albumin/Globulin Ratio 0.9 (1.0-1.7) L Current Medications: Meds: Laboratory Tests Test 06/01/21 12:50 White Blood Count 8.6 x10^3/uL Red Blood Count 3.95 x10^6/uL Hemoglobin 12.1 g/dL Hematocrit 36.4 % Mean Corpuscular Volume 92 fL Mean Corpuscular Hemoglobin 31 pg Mean Corpuscular Hemoglobin Concent 33 g/dL Red Cell Distribution Width 14.7 % Platelet Count 265 x10^3/uL Neutrophils (%) (Auto) 60 % Lymphocytes (%) (Auto) 23 % Monocytes (%) (Auto) 13 % Eosinophils (%) (Auto) 3 % Basophils (%) (Auto) 1 % Neutrophils # (Auto) 5.2 x10^3uL Lymphocytes # (Auto) 2.0 x10^3/uL Monocytes # (Auto) 1.1 x10^3/uL Eosinophils # (Auto) 0.2 x10^3/uL Basophils # (Auto) 0.1 x10^3/uL Sodium Level 140 mmol/L Potassium Level 3.7 mmol/L Chloride Level 103 mmol/L Carbon Dioxide Level 29 mmol/L Anion Gap 8 Blood Urea Nitrogen 19 mg/dL Creatinine 1.0 mg/dL Estimated GFR (Cockcroft-Gault) 71.7 BUN/Creatinine Ratio 19 Glucose Level 138 mg/dL Calcium Level 8.0 mg/dL Total Bilirubin 0.3 mg/dL Aspartate Amino Transf (AST/SGOT) 21 U/L Alanine Aminotransferase (ALT/SGPT) 15 U/L Alkaline Phosphatase 106 U/L Total Protein 6.6 g/dL Albumin 3.2 g/dL Albumin/Globulin Ratio 0.9 Current Medications Medications (Trade) Dose Ordered Sig/Angy Route PRN Reason Start Time Stop Time Status Last Admin Dose Admin Acetaminophen (Tylenol) 650 mg PRN Q4HRS PRN PO MILD PAIN / TEMP > 100.3'F 05/16/21 16:30 Amlodipine Besylate (Norvasc) 10 mg DAILY PO 05/17/21 09:00 06/02/21 09:36 Levofloxacin (Levaquin) 750 mg DAILY PO 05/17/21 09:00 05/21/21 21:00 DC 05/21/21 08:57 Olanzapine (ZyPREXA ZYDIS) 5 mg PRN BID PRN PO PSYCHOSIS 05/16/21 16:30 05/30/21 00:42 Quetiapine Fumarate (SEROquel) 50 mg QHS PO 05/16/21 21:00 05/19/21 12:13 DC 05/18/21 20:59 Tamsulosin HCl (Flomax) 0.4 mg DAILY PO 05/17/21 09:00 06/02/21 09:36 Artificial Tears (Refresh Classic) 1 drop PRN DAILY PRN OU DRY EYE 05/16/21 17:00 05/27/21 08:37 Multi-Ingredient Ointment (Analgesic [place]) 1 radha PRN QID PRN TP MUSCLE PAIN 05/16/21 16:45 Al Hydroxide/Mg Hydroxide (Mylanta Plus Xs) 15 ml PRN AFTMEALHC PRN PO DYSPEPSIA 05/16/21 16:45 Magnesium Hydroxide (Milk Of Magnesia) 2,400 mg PRN QHS PRN PO CONSTIPATION 05/16/21 16:45 Lactobacillus Rhamnosus (Culturelle) 1 cap BID PO 05/18/21 21:00 06/02/21 09:36 Mirtazapine (Remeron) 7.5 mg QHS PO 05/19/21 21:00 05/21/21 16:17 DC 05/20/21 20:11 Sertraline HCl (Zoloft) 25 mg DAILY PO 05/20/21 09:00 05/27/21 01:09 DC 05/26/21 08:21 Risperidone (RisperDAL) 0.5 mg QHS PO 05/19/21 21:00 06/01/21 20:15 Carbidopa/Levodopa (Sinemet 25/100) 1 tab BID PO 05/21/21 21:00 05/27/21 18:06 DC 05/27/21 08:30 Mirtazapine (Remeron) 15 mg QHS PO 05/21/21 21:00 06/01/21 20:15 Trazodone HCl (Desyrel) 50 mg PRN QHS PRN PO INSOMNIA 05/21/21 16:15 05/26/21 23:11 Lorazepam (Ativan Intensol) 0.5 mg PRN Q1HR PRN SL ANXIETY / AGITATION 05/21/21 23:15 Trazodone HCl (Desyrel) 50 mg QHS PO 05/26/21 21:00 06/01/21 20:15 Sertraline HCl (Zoloft) 25 mg DAILY PO 05/27/21 09:00 05/27/21 01:09 DC Sertraline HCl (Zoloft) 50 mg DAILY PO 05/30/21 09:00 05/27/21 01:09 DC Sertraline HCl (Zoloft) 50 mg DAILY PO 05/27/21 09:00 06/02/21 09:36 Carbidopa/Levodopa (Sinemet 25/100) 1 tab TID PO 05/27/21 21:00 06/02/21 09:36 I have reviewed the current psychotropics carefully including drug interactions. Risk benefit ratio favors no change other than as noted in my dictated progress note. 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
--- NOTE | 2021-06-02 11:35 | PDOC ---
Exam Note: Ben Note: This note is a late entry for 05/31/2021 covers elements not covered in my initial note. Subjective: The patient was seen individually in the evening of 05/31/2021 with Carlotta ENCINAS, discussed and reviewed the chart. The patient slept 5-1/2 hours previous night. He is much more oriented, less anxious. I met with him in his room. He is wanting to know about discharge plans and social service staff are coordinating this with the family. Review of Systems: Ambulation impaired with walker. No CV, , pulmonary, eye, ENT system symptoms on review. Reliability poor. Mental Status Exam: The patient is oriented to himself and situation. Speech coherent. Abstraction fair. Computation impaired. Language function intact. Mood and affect improved, less anxious. Laboratory Data: Reviewed. Impression: Major depressive disorder with psychotic features. Mild cognitive impairment versus major neurocognitive disorder Alzheimer, vascular with delusion, depression. Anxiety disorder, unspecified. Impulse control disorder, unspecified. Plan: Continue current psychotropics. Assessment: Vital Signs/I&O: Vital Signs Date Time Temp Pulse Resp B/P (MAP) Pulse Ox O2 Delivery O2 Flow Rate FiO2 06/02/21 09:36 68 175/84 06/02/21 06:20 97.6 16 97 05/31/21 15:36 Room Air I & O 06/01/21 06/01/21 06/02/21 15:00 23:00 07:00 Intake Total 720 ml 480 ml Balance 720 ml 480 ml Labs: Laboratory Tests Test 06/01/21 12:50 White Blood Count 8.6 x10^3/uL (4.0-11.0) Red Blood Count 3.95 x10^6/uL (4.30-5.70) L Hemoglobin 12.1 g/dL (13.0-17.5) L Hematocrit 36.4 % (39.0-53.0) L Mean Corpuscular Volume 92 fL (79-100) Mean Corpuscular Hemoglobin 31 pg (25-35) Mean Corpuscular Hemoglobin Concent 33 g/dL (31-37) Red Cell Distribution Width 14.7 % (11.5-14.5) H Platelet Count 265 x10^3/uL (140-400) Neutrophils (%) (Auto) 60 % (31-73) Lymphocytes (%) (Auto) 23 % (24-48) L Monocytes (%) (Auto) 13 % (0-9) H Eosinophils (%) (Auto) 3 % (0-3) Basophils (%) (Auto) 1 % (0-3) Neutrophils # (Auto) 5.2 x10^3uL (1.8-7.7) Lymphocytes # (Auto) 2.0 x10^3/uL (1.0-4.8) Monocytes # (Auto) 1.1 x10^3/uL (0.0-1.1) Eosinophils # (Auto) 0.2 x10^3/uL (0.0-0.7) Basophils # (Auto) 0.1 x10^3/uL (0.0-0.2) Sodium Level 140 mmol/L (136-145) Potassium Level 3.7 mmol/L (3.5-5.1) Chloride Level 103 mmol/L (98-107) Carbon Dioxide Level 29 mmol/L (21-32) Anion Gap 8 (6-14) Blood Urea Nitrogen 19 mg/dL (8-26) Creatinine 1.0 mg/dL (0.7-1.3) Estimated GFR (Cockcroft-Gault) 71.7 BUN/Creatinine Ratio 19 (6-20) Glucose Level 138 mg/dL (70-99) H Calcium Level 8.0 mg/dL (8.5-10.1) L Total Bilirubin 0.3 mg/dL (0.2-1.0) Aspartate Amino Transferase (AST) 21 U/L (15-37) Alanine Aminotransferase (ALT) 15 U/L (16-63) L Alkaline Phosphatase 106 U/L (46-116) Total Protein 6.6 g/dL (6.4-8.2) Albumin 3.2 g/dL (3.4-5.0) L Albumin/Globulin Ratio 0.9 (1.0-1.7) L Current Medications: Meds: Laboratory Tests Test 06/01/21 12:50 White Blood Count 8.6 x10^3/uL Red Blood Count 3.95 x10^6/uL Hemoglobin 12.1 g/dL Hematocrit 36.4 % Mean Corpuscular Volume 92 fL Mean Corpuscular Hemoglobin 31 pg Mean Corpuscular Hemoglobin Concent 33 g/dL Red Cell Distribution Width 14.7 % Platelet Count 265 x10^3/uL Neutrophils (%) (Auto) 60 % Lymphocytes (%) (Auto) 23 % Monocytes (%) (Auto) 13 % Eosinophils (%) (Auto) 3 % Basophils (%) (Auto) 1 % Neutrophils # (Auto) 5.2 x10^3uL Lymphocytes # (Auto) 2.0 x10^3/uL Monocytes # (Auto) 1.1 x10^3/uL Eosinophils # (Auto) 0.2 x10^3/uL Basophils # (Auto) 0.1 x10^3/uL Sodium Level 140 mmol/L Potassium Level 3.7 mmol/L Chloride Level 103 mmol/L Carbon Dioxide Level 29 mmol/L Anion Gap 8 Blood Urea Nitrogen 19 mg/dL Creatinine 1.0 mg/dL Estimated GFR (Cockcroft-Gault) 71.7 BUN/Creatinine Ratio 19 Glucose Level 138 mg/dL Calcium Level 8.0 mg/dL Total Bilirubin 0.3 mg/dL Aspartate Amino Transf (AST/SGOT) 21 U/L Alanine Aminotransferase (ALT/SGPT) 15 U/L Alkaline Phosphatase 106 U/L Total Protein 6.6 g/dL Albumin 3.2 g/dL Albumin/Globulin Ratio 0.9 Current Medications Medications (Trade) Dose Ordered Sig/Angy Route PRN Reason Start Time Stop Time Status Last Admin Dose Admin Acetaminophen (Tylenol) 650 mg PRN Q4HRS PRN PO MILD PAIN / TEMP > 100.3'F 05/16/21 16:30 Amlodipine Besylate (Norvasc) 10 mg DAILY PO 05/17/21 09:00 06/02/21 09:36 Levofloxacin (Levaquin) 750 mg DAILY PO 05/17/21 09:00 05/21/21 21:00 DC 05/21/21 08:57 Olanzapine (ZyPREXA ZYDIS) 5 mg PRN BID PRN PO PSYCHOSIS 05/16/21 16:30 05/30/21 00:42 Quetiapine Fumarate (SEROquel) 50 mg QHS PO 05/16/21 21:00 05/19/21 12:13 DC 05/18/21 20:59 Tamsulosin HCl (Flomax) 0.4 mg DAILY PO 05/17/21 09:00 06/02/21 09:36 Artificial Tears (Refresh Classic) 1 drop PRN DAILY PRN OU DRY EYE 05/16/21 17:00 05/27/21 08:37 Multi-Ingredient Ointment (Analgesic [place]) 1 ardha PRN QID PRN TP MUSCLE PAIN 05/16/21 16:45 Al Hydroxide/Mg Hydroxide (Mylanta Plus Xs) 15 ml PRN AFTMEALHC PRN PO DYSPEPSIA 05/16/21 16:45 Magnesium Hydroxide (Milk Of Magnesia) 2,400 mg PRN QHS PRN PO CONSTIPATION 05/16/21 16:45 Lactobacillus Rhamnosus (Culturelle) 1 cap BID PO 05/18/21 21:00 06/02/21 09:36 Mirtazapine (Remeron) 7.5 mg QHS PO 05/19/21 21:00 05/21/21 16:17 DC 05/20/21 20:11 Sertraline HCl (Zoloft) 25 mg DAILY PO 05/20/21 09:00 05/27/21 01:09 DC 05/26/21 08:21 Risperidone (RisperDAL) 0.5 mg QHS PO 05/19/21 21:00 06/01/21 20:15 Carbidopa/Levodopa (Sinemet 25/100) 1 tab BID PO 05/21/21 21:00 05/27/21 18:06 DC 05/27/21 08:30 Mirtazapine (Remeron) 15 mg QHS PO 05/21/21 21:00 06/01/21 20:15 Trazodone HCl (Desyrel) 50 mg PRN QHS PRN PO INSOMNIA 05/21/21 16:15 05/26/21 23:11 Lorazepam (Ativan Intensol) 0.5 mg PRN Q1HR PRN SL ANXIETY / AGITATION 05/21/21 23:15 Trazodone HCl (Desyrel) 50 mg QHS PO 05/26/21 21:00 06/01/21 20:15 Sertraline HCl (Zoloft) 25 mg DAILY PO 05/27/21 09:00 05/27/21 01:09 DC Sertraline HCl (Zoloft) 50 mg DAILY PO 05/30/21 09:00 05/27/21 01:09 DC Sertraline HCl (Zoloft) 50 mg DAILY PO 05/27/21 09:00 06/02/21 09:36 Carbidopa/Levodopa (Sinemet 25/100) 1 tab TID PO 05/27/21 21:00 06/02/21 09:36 I have reviewed the current psychotropics carefully including drug interactions. Risk benefit ratio favors no change other than as noted in my dictated progress note. 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
--- NOTE | 2021-06-02 11:50 | PDOC ---
Exam Note: Ben Note: This note is a late entry for 06/01/2021 covers elements not covered in my initial note. Subjective: The patient was seen individually in the evening of 06/01/2021 with Carlotta ENCINAS, discussed and reviewed the chart. The patient slept 6-3/4 hours previous night. Overall he is doing better, more oriented, less anxious. Review of Systems: Ambulation impaired with walker. No CV, , pulmonary, eye, ENT system symptoms on review. Mental Status Exam: The patient is oriented reasonably. Speech coherent. Abstraction fair. Some of this is assessed per nursing report. Insight fair. Judgment intact to standard questioning. Mood and affect improved. No suicidal or homicidal ideation. Laboratory Data: Reviewed. Impression: Major depressive disorder with psychotic features. Mild cognitive impairment versus major neurocognitive disorder Alzheimer, vascular with delusion, depression. Anxiety disorder, unspecified. Impulse control disorder, unspecified. Plan: Continue current psychotropics. Assessment: Vital Signs/I&O: Vital Signs Date Time Temp Pulse Resp B/P (MAP) Pulse Ox O2 Delivery O2 Flow Rate FiO2 06/02/21 09:36 68 175/84 06/02/21 06:20 97.6 16 97 05/31/21 15:36 Room Air I & O 06/01/21 06/01/21 06/02/21 14:59 22:59 06:59 Intake Total 720 ml 480 ml Balance 720 ml 480 ml Labs: Laboratory Tests Test 06/01/21 12:50 White Blood Count 8.6 x10^3/uL (4.0-11.0) Red Blood Count 3.95 x10^6/uL (4.30-5.70) L Hemoglobin 12.1 g/dL (13.0-17.5) L Hematocrit 36.4 % (39.0-53.0) L Mean Corpuscular Volume 92 fL (79-100) Mean Corpuscular Hemoglobin 31 pg (25-35) Mean Corpuscular Hemoglobin Concent 33 g/dL (31-37) Red Cell Distribution Width 14.7 % (11.5-14.5) H Platelet Count 265 x10^3/uL (140-400) Neutrophils (%) (Auto) 60 % (31-73) Lymphocytes (%) (Auto) 23 % (24-48) L Monocytes (%) (Auto) 13 % (0-9) H Eosinophils (%) (Auto) 3 % (0-3) Basophils (%) (Auto) 1 % (0-3) Neutrophils # (Auto) 5.2 x10^3uL (1.8-7.7) Lymphocytes # (Auto) 2.0 x10^3/uL (1.0-4.8) Monocytes # (Auto) 1.1 x10^3/uL (0.0-1.1) Eosinophils # (Auto) 0.2 x10^3/uL (0.0-0.7) Basophils # (Auto) 0.1 x10^3/uL (0.0-0.2) Sodium Level 140 mmol/L (136-145) Potassium Level 3.7 mmol/L (3.5-5.1) Chloride Level 103 mmol/L (98-107) Carbon Dioxide Level 29 mmol/L (21-32) Anion Gap 8 (6-14) Blood Urea Nitrogen 19 mg/dL (8-26) Creatinine 1.0 mg/dL (0.7-1.3) Estimated GFR (Cockcroft-Gault) 71.7 BUN/Creatinine Ratio 19 (6-20) Glucose Level 138 mg/dL (70-99) H Calcium Level 8.0 mg/dL (8.5-10.1) L Total Bilirubin 0.3 mg/dL (0.2-1.0) Aspartate Amino Transferase (AST) 21 U/L (15-37) Alanine Aminotransferase (ALT) 15 U/L (16-63) L Alkaline Phosphatase 106 U/L (46-116) Total Protein 6.6 g/dL (6.4-8.2) Albumin 3.2 g/dL (3.4-5.0) L Albumin/Globulin Ratio 0.9 (1.0-1.7) L Current Medications: Meds: Laboratory Tests Test 06/01/21 12:50 White Blood Count 8.6 x10^3/uL Red Blood Count 3.95 x10^6/uL Hemoglobin 12.1 g/dL Hematocrit 36.4 % Mean Corpuscular Volume 92 fL Mean Corpuscular Hemoglobin 31 pg Mean Corpuscular Hemoglobin Concent 33 g/dL Red Cell Distribution Width 14.7 % Platelet Count 265 x10^3/uL Neutrophils (%) (Auto) 60 % Lymphocytes (%) (Auto) 23 % Monocytes (%) (Auto) 13 % Eosinophils (%) (Auto) 3 % Basophils (%) (Auto) 1 % Neutrophils # (Auto) 5.2 x10^3uL Lymphocytes # (Auto) 2.0 x10^3/uL Monocytes # (Auto) 1.1 x10^3/uL Eosinophils # (Auto) 0.2 x10^3/uL Basophils # (Auto) 0.1 x10^3/uL Sodium Level 140 mmol/L Potassium Level 3.7 mmol/L Chloride Level 103 mmol/L Carbon Dioxide Level 29 mmol/L Anion Gap 8 Blood Urea Nitrogen 19 mg/dL Creatinine 1.0 mg/dL Estimated GFR (Cockcroft-Gault) 71.7 BUN/Creatinine Ratio 19 Glucose Level 138 mg/dL Calcium Level 8.0 mg/dL Total Bilirubin 0.3 mg/dL Aspartate Amino Transf (AST/SGOT) 21 U/L Alanine Aminotransferase (ALT/SGPT) 15 U/L Alkaline Phosphatase 106 U/L Total Protein 6.6 g/dL Albumin 3.2 g/dL Albumin/Globulin Ratio 0.9 Current Medications Medications (Trade) Dose Ordered Sig/Angy Route PRN Reason Start Time Stop Time Status Last Admin Dose Admin Acetaminophen (Tylenol) 650 mg PRN Q4HRS PRN PO MILD PAIN / TEMP > 100.3'F 05/16/21 16:30 Amlodipine Besylate (Norvasc) 10 mg DAILY PO 05/17/21 09:00 06/02/21 09:36 Levofloxacin (Levaquin) 750 mg DAILY PO 05/17/21 09:00 05/21/21 21:00 DC 05/21/21 08:57 Olanzapine (ZyPREXA ZYDIS) 5 mg PRN BID PRN PO PSYCHOSIS 05/16/21 16:30 05/30/21 00:42 Quetiapine Fumarate (SEROquel) 50 mg QHS PO 05/16/21 21:00 05/19/21 12:13 DC 05/18/21 20:59 Tamsulosin HCl (Flomax) 0.4 mg DAILY PO 05/17/21 09:00 06/02/21 09:36 Artificial Tears (Refresh Classic) 1 drop PRN DAILY PRN OU DRY EYE 05/16/21 17:00 05/27/21 08:37 Multi-Ingredient Ointment (Analgesic [place]) 1 radha PRN QID PRN TP MUSCLE PAIN 05/16/21 16:45 Al Hydroxide/Mg Hydroxide (Mylanta Plus Xs) 15 ml PRN AFTMEALHC PRN PO DYSPEPSIA 05/16/21 16:45 Magnesium Hydroxide (Milk Of Magnesia) 2,400 mg PRN QHS PRN PO CONSTIPATION 05/16/21 16:45 Lactobacillus Rhamnosus (Culturelle) 1 cap BID PO 05/18/21 21:00 06/02/21 09:36 Mirtazapine (Remeron) 7.5 mg QHS PO 05/19/21 21:00 05/21/21 16:17 DC 05/20/21 20:11 Sertraline HCl (Zoloft) 25 mg DAILY PO 05/20/21 09:00 05/27/21 01:09 DC 05/26/21 08:21 Risperidone (RisperDAL) 0.5 mg QHS PO 05/19/21 21:00 06/01/21 20:15 Carbidopa/Levodopa (Sinemet 25/100) 1 tab BID PO 05/21/21 21:00 05/27/21 18:06 DC 05/27/21 08:30 Mirtazapine (Remeron) 15 mg QHS PO 05/21/21 21:00 06/01/21 20:15 Trazodone HCl (Desyrel) 50 mg PRN QHS PRN PO INSOMNIA 05/21/21 16:15 05/26/21 23:11 Lorazepam (Ativan Intensol) 0.5 mg PRN Q1HR PRN SL ANXIETY / AGITATION 05/21/21 23:15 Trazodone HCl (Desyrel) 50 mg QHS PO 05/26/21 21:00 06/01/21 20:15 Sertraline HCl (Zoloft) 25 mg DAILY PO 05/27/21 09:00 05/27/21 01:09 DC Sertraline HCl (Zoloft) 50 mg DAILY PO 05/30/21 09:00 05/27/21 01:09 DC Sertraline HCl (Zoloft) 50 mg DAILY PO 05/27/21 09:00 06/02/21 09:36 Carbidopa/Levodopa (Sinemet 25/100) 1 tab TID PO 05/27/21 21:00 06/02/21 09:36 I have reviewed the current psychotropics carefully including drug interactions. Risk benefit ratio favors no change other than as noted in my dictated progress note. 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
--- NOTE | 2021-06-02 13:04 | NUR ---
WEEKLY ACTIVITY THERAPY NOTE Date of Admission: 05/16/2021 Date of AT Assessment: 05/19/2021 Precipitating behaviors that initiated intake and admission: Patient was reported to be anxious, depressed, AMS, ran away from his house and spent the night outside, delusional, sleep disturbance, thinking his is not his . Goal aimed: to increase relaxation techniques and socialization Initial Goal: Pt. will participate in at least five Activity Therapy individual or group sessions per week. Weekly progress towards goal: did not achieve, 2/5 Group participation level: 2 mod Weekly highlights: discussed careers and labor day history Wednesday, listened to music afternoon Behaviors observed: quiet,pleasant, calm Plan: no change to goal Beneficial adaptations: music, engagement
[2021-06-02 15:46] VITALS: BP 149/80
[2021-06-02] MEDS: MIRTAZAPINE 15 MG TABLET PO SCH (20:52)
[2021-06-02] MEDS: risperiDONE 0.5 MG TABLET. PO SCH (20:53)
[2021-06-02] MEDS: traZODone 50 MG TABLET. PO SCH (20:53)
--- NOTE | 2021-06-02 21:56 | PDOC ---
Exam Note: Ben Note: Please also refer to the separate dictated note~for this date of service dictated separately.~Patient seen individually. Discussed the patient with Nursing staff reviewed the chart.~Reviewed interim history and current functioning. Reviewed vital signs,~Labs/ Radiology~and current medications noted below. Continue current treatment with the changes noted in the dictated addendum note Assessment: Vital Signs/I&O: Vital Signs Date Time Temp Pulse Resp B/P (MAP) Pulse Ox O2 Delivery O2 Flow Rate FiO2 06/02/21 15:46 98.0 61 16 149/80 (103) 96 Room Air I & O 06/01/21 06/01/21 06/02/21 15:00 23:00 07:00 Intake Total 720 ml 480 ml Balance 720 ml 480 ml Current Medications: Meds: Current Medications Medications (Trade) Dose Ordered Sig/Angy Route PRN Reason Start Time Stop Time Status Last Admin Dose Admin Acetaminophen (Tylenol) 650 mg PRN Q4HRS PRN PO MILD PAIN / TEMP > 100.3'F 05/16/21 16:30 Amlodipine Besylate (Norvasc) 10 mg DAILY PO 05/17/21 09:00 06/02/21 09:36 Levofloxacin (Levaquin) 750 mg DAILY PO 05/17/21 09:00 05/21/21 21:00 DC 05/21/21 08:57 Olanzapine (ZyPREXA ZYDIS) 5 mg PRN BID PRN PO PSYCHOSIS 05/16/21 16:30 05/30/21 00:42 Quetiapine Fumarate (SEROquel) 50 mg QHS PO 05/16/21 21:00 05/19/21 12:13 DC 05/18/21 20:59 Tamsulosin HCl (Flomax) 0.4 mg DAILY PO 05/17/21 09:00 06/02/21 09:36 Artificial Tears (Refresh Classic) 1 drop PRN DAILY PRN OU DRY EYE 05/16/21 17:00 05/27/21 08:37 Multi-Ingredient Ointment (Analgesic [place]) 1 radha PRN QID PRN TP MUSCLE PAIN 05/16/21 16:45 Al Hydroxide/Mg Hydroxide (Mylanta Plus Xs) 15 ml PRN AFTMEALHC PRN PO DYSPEPSIA 05/16/21 16:45 Magnesium Hydroxide (Milk Of Magnesia) 2,400 mg PRN QHS PRN PO CONSTIPATION 05/16/21 16:45 Lactobacillus Rhamnosus (Culturelle) 1 cap BID PO 05/18/21 21:00 06/02/21 20:52 Mirtazapine (Remeron) 7.5 mg QHS PO 05/19/21 21:00 05/21/21 16:17 DC 05/20/21 20:11 Sertraline HCl (Zoloft) 25 mg DAILY PO 05/20/21 09:00 05/27/21 01:09 DC 05/26/21 08:21 Risperidone (RisperDAL) 0.5 mg QHS PO 05/19/21 21:00 06/02/21 20:53 Carbidopa/Levodopa (Sinemet 25/100) 1 tab BID PO 05/21/21 21:00 05/27/21 18:06 DC 05/27/21 08:30 Mirtazapine (Remeron) 15 mg QHS PO 05/21/21 21:00 06/02/21 20:52 Trazodone HCl (Desyrel) 50 mg PRN QHS PRN PO INSOMNIA 05/21/21 16:15 05/26/21 23:11 Lorazepam (Ativan Intensol) 0.5 mg PRN Q1HR PRN SL ANXIETY / AGITATION 05/21/21 23:15 Trazodone HCl (Desyrel) 50 mg QHS PO 05/26/21 21:00 06/02/21 20:53 Sertraline HCl (Zoloft) 25 mg DAILY PO 05/27/21 09:00 05/27/21 01:09 DC Sertraline HCl (Zoloft) 50 mg DAILY PO 05/30/21 09:00 05/27/21 01:09 DC Sertraline HCl (Zoloft) 50 mg DAILY PO 05/27/21 09:00 06/02/21 09:36 Carbidopa/Levodopa (Sinemet 25/100) 1 tab TID PO 05/27/21 21:00 06/02/21 20:53 I have reviewed the current psychotropics carefully including drug interactions. Risk benefit ratio favors no change other than as noted in my dictated progress note. 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
[2021-06-03] MEDS: traZODone 50 MG TABLET. PO PRN (00:45)
--- NOTE | 2021-06-03 01:08 | NUR ---
Nursing Note Pt up on and off this pm, he first wanders out because he is wet. Later he is looking for a female peer. Pt given trazodone PRN. When asked how he's doing pt states "That's the last time I do anything for him!!" Pt intermittently awake but redirects easily.
[2021-06-03 06:09] VITALS: BP 164/99
[2021-06-03] MEDS: amLODIPine BESYLATE 10 MG TABLET PO SCH (08:29)
[2021-06-03] MEDS: CARBIDOPA/LEVODOPA 25/100MG TABLET PO SCH ×3 (08:29→20:12)
[2021-06-03] MEDS: TAMSULOSIN 0.4 MG CAP.ER.24H. PO SCH (08:29)
[2021-06-03] MEDS: LACTOBACILLUS RHAMNOSUS GG 1 CAPSULE. PO SCH ×2 (08:29→20:12)
[2021-06-03] MEDS: SERTRALINE 50 MG TABLET. PO SCH (08:30)
--- NOTE | 2021-06-03 09:05 | NUR ---
ANDERS contacted pt niece to follow up on the plans for discharge. She has a caregiver lined up but is needing to speak with [facility] on transportation; Nhung reports that she has since returned back to [place] and is working on getting Damian to pick pt up. Once she hears from them, she will plan to contact ANDERS with details. ANDERS also questioned the financial piece as administration has returned her 's call multiple times with no answer and no returned call. She reports that [employer] is on a tax case and is not always reachable; ANDERS requested that he call the health care administrator back [facility] as the stipulation for payment has been set. Nhung reports frustration as to why they need the money up front versus billing them or giving them a nathen period like insurances would get and ANDERS is not able to answer that for them.
--- NOTE | 2021-06-03 10:08 | NUR ---
Pt confused and disorganized this morning. He is A&O to self only, absent of SI/HI/VH/AH/delusions at this time. He appears calm and withdrawn primarily to his room but was receptive to a phone conversation with his niece. Absent of verbal/physical aggression at this time. He is compliant with whole medications. Plan of care continues, will pass to next shift.
--- NOTE | 2021-06-03 12:50 | NUR ---
[facility] Social Work Discharge Planning Form Patient Name OSMEL ZHANG Admit Date: 16 May 2021 DISCHARGE PLAN Discharge Destination: Pt to discharge to [facility] Assessment: N/A Level II Assessment: N/A Transportation: [employer] Therap[facility] to pick pt up at 10:00AM ; Special Instructions/Notes: Please fax discharge orders, discharge medications and discharge summary to the fax number listed below. DISCHARGE TO FACILITY Facility: [facility] Address: [address] [place] [address] [place] [address] Contact Name: Isi Macdonald, Finish Photographer: Contact Name: Ask for the nurse accepting pt upon arrival for report. PCP: Dr. Lalit Puente
[2021-06-03 16:16] VITALS: BP 149/84
[2021-06-03] MEDS: risperiDONE 0.5 MG TABLET. PO SCH (20:12)
[2021-06-03] MEDS: traZODone 50 MG TABLET. PO SCH (20:12)
[2021-06-03] MEDS: MIRTAZAPINE 15 MG TABLET PO SCH (20:12)
--- NOTE | 2021-06-03 22:41 | PDOC ---
Exam Note: Ben Note: Please also refer to the separate dictated note~for this date of service dictated separately.~Patient seen individually. Discussed the patient with Nursing staff reviewed the chart.~Reviewed interim history and current functioning. Reviewed vital signs,~Labs/ Radiology~and current medications noted below. Continue current treatment with the changes noted in the dictated addendum note Assessment: Vital Signs/I&O: Vital Signs Date Time Temp Pulse Resp B/P (MAP) Pulse Ox O2 Delivery O2 Flow Rate FiO2 06/03/21 16:16 98.3 78 18 149/84 (105) 93 Room Air I & O 06/02/21 06/02/21 06/03/21 15:00 23:00 07:00 Intake Total 600 ml 720 ml Balance 600 ml 720 ml Current Medications: Meds: Current Medications Medications (Trade) Dose Ordered Sig/Angy Route PRN Reason Start Time Stop Time Status Last Admin Dose Admin Acetaminophen (Tylenol) 650 mg PRN Q4HRS PRN PO MILD PAIN / TEMP > 100.3'F 05/16/21 16:30 Amlodipine Besylate (Norvasc) 10 mg DAILY PO 05/17/21 09:00 06/03/21 08:29 Levofloxacin (Levaquin) 750 mg DAILY PO 05/17/21 09:00 05/21/21 21:00 DC 05/21/21 08:57 Olanzapine (ZyPREXA ZYDIS) 5 mg PRN BID PRN PO PSYCHOSIS 05/16/21 16:30 05/30/21 00:42 Quetiapine Fumarate (SEROquel) 50 mg QHS PO 05/16/21 21:00 05/19/21 12:13 DC 05/18/21 20:59 Tamsulosin HCl (Flomax) 0.4 mg DAILY PO 05/17/21 09:00 06/03/21 08:29 Artificial Tears (Refresh Classic) 1 drop PRN DAILY PRN OU DRY EYE 05/16/21 17:00 05/27/21 08:37 Multi-Ingredient Ointment (Analgesic [place]) 1 radha PRN QID PRN TP MUSCLE PAIN 05/16/21 16:45 Al Hydroxide/Mg Hydroxide (Mylanta Plus Xs) 15 ml PRN AFTMEALHC PRN PO DYSPEPSIA 05/16/21 16:45 Magnesium Hydroxide (Milk Of Magnesia) 2,400 mg PRN QHS PRN PO CONSTIPATION 05/16/21 16:45 Lactobacillus Rhamnosus (Culturelle) 1 cap BID PO 05/18/21 21:00 06/03/21 20:12 Mirtazapine (Remeron) 7.5 mg QHS PO 05/19/21 21:00 05/21/21 16:17 DC 05/20/21 20:11 Sertraline HCl (Zoloft) 25 mg DAILY PO 05/20/21 09:00 05/27/21 01:09 DC 05/26/21 08:21 Risperidone (RisperDAL) 0.5 mg QHS PO 05/19/21 21:00 06/03/21 20:12 Carbidopa/Levodopa (Sinemet 25/100) 1 tab BID PO 05/21/21 21:00 05/27/21 18:06 DC 05/27/21 08:30 Mirtazapine (Remeron) 15 mg QHS PO 05/21/21 21:00 06/03/21 20:12 Trazodone HCl (Desyrel) 50 mg PRN QHS PRN PO INSOMNIA 05/21/21 16:15 06/03/21 00:45 Lorazepam (Ativan Intensol) 0.5 mg PRN Q1HR PRN SL ANXIETY / AGITATION 05/21/21 23:15 Trazodone HCl (Desyrel) 50 mg QHS PO 05/26/21 21:00 06/03/21 20:12 Sertraline HCl (Zoloft) 25 mg DAILY PO 05/27/21 09:00 05/27/21 01:09 DC Sertraline HCl (Zoloft) 50 mg DAILY PO 05/30/21 09:00 05/27/21 01:09 DC Sertraline HCl (Zoloft) 50 mg DAILY PO 05/27/21 09:00 06/03/21 08:30 Carbidopa/Levodopa (Sinemet 25/100) 1 tab TID PO 05/27/21 21:00 06/03/21 20:12 I have reviewed the current psychotropics carefully including drug interactions. Risk benefit ratio favors no change other than as noted in my dictated progress note. 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
--- NOTE | 2021-06-03 23:08 | NUR ---
Pt lying in bed when approached. Pt calm, pleasantly confused, and interactive during encounter. Pt cooperative with assessment and compliant with medications administered whole.
[2021-06-03] MEDS ORDERED: LACT1CAP19 PO (23:31)
[2021-06-03] MEDS ORDERED: CARB1TAB22 PO (23:31)
[2021-06-03] MEDS ORDERED: MAG-115 PO (23:32)
[2021-06-03] MEDS ORDERED: METH57CR17 TP (23:32)
[2021-06-03] MEDS ORDERED: MAGN24003 PO (23:32)
[2021-06-03] MEDS ORDERED: SERT50TA PO (23:33)
[2021-06-03] MEDS ORDERED: MIRT-7 PO (23:33)
[2021-06-03] MEDS ORDERED: TRAZ-120 PO ×2 (23:34)
[2021-06-03] MEDS ORDERED: RISP0.5T24 PO (23:34)
[2021-06-04 06:12] VITALS: BP 167/79
[2021-06-04] MEDS: SERTRALINE 50 MG TABLET. PO SCH (08:13)
[2021-06-04] MEDS: CARBIDOPA/LEVODOPA 25/100MG TABLET PO SCH (08:13)
[2021-06-04] MEDS: TAMSULOSIN 0.4 MG CAP.ER.24H. PO SCH (08:13)
[2021-06-04 08:14] VITALS: BP 167/79
[2021-06-04] MEDS: amLODIPine BESYLATE 10 MG TABLET PO SCH (08:14)
[2021-06-04] MEDS: LACTOBACILLUS RHAMNOSUS GG 1 CAPSULE. PO SCH (08:14)
--- NOTE | 2021-06-04 10:24 | NUR ---
Nsg Note; Discharge: Transition Record was faxed to follow-up provider with the following elements: Reason for admission, procedures, tests, principal diagnosis, pending studies, patient instructions, 12/04 contact information for unit, phone number to obtain pending test results, plan for follow-up care, physician follow-up, advanced directive information, and medication list with dose, duration and instructions. This information was included in the following documents: History and physical, lab results, study results, progress notes, social work planning form, DC instruction form, patient visit summary, and medication reconciliation form. Date & time record faxed: 06/03/21 at 1678 Record faxed to: [phone] [facility] Record discussed with/ report given to Lalit MONROY at 1010 Pt discharged to [facility] at 1010 via w/c accomp by transport personnel.
--- NOTE | 2021-06-04 22:38 | PDOC ---
Exam Note: Ben Note: This note is a late entry for 06/02/2021 covers elements not covered in my initial note. Subjective: The patient was reviewed at treatment team meeting individually in the morning on 06/02/2021 with Kaylan Corcoran, Urvashi Mai (social secretary), Thalia, activity therapy and Maria E ENCINAS, discussed and reviewed the chart. Discussed the patients diagnoses, progress, psychotropic medications and side effects. The patient slept 6 hours previous night. He attended 2 groups in the past one week. He is compliant with medications, confused. He is oriented at times but other times little more confused. Review of Systems: Ambulation impaired with walker. No CV, , pulmonary, eye, ENT system symptoms on review. Mental Status Exam: The patient is oriented reasonably. Speech coherent. Abstraction fair. Computation impaired. Language function intact. Mood and affect improved. No suicidal or homicidal ideation. Laboratory Data: Reviewed. Impression: Major depressive disorder with psychotic features. Mild cognitive impairment versus major neurocognitive disorder Alzheimer, vascular with delusion, depression. Anxiety disorder, unspecified. Impulse control disorder, unspecified. Plan: Continue current psychotropics. Assessment: Vital Signs/I&O: Vital Signs Date Time Temp Pulse Resp B/P (MAP) Pulse Ox O2 Delivery O2 Flow Rate FiO2 06/04/21 08:14 60 167/79 06/04/21 06:12 97.7 18 95 Room Air I & O 06/03/21 06/03/21 06/04/21 15:00 23:00 07:00 Intake Total 480 ml 240 ml 240 ml Balance 480 ml 240 ml 240 ml Current Medications: Meds: Current Medications Medications (Trade) Dose Ordered Sig/Angy Route PRN Reason Start Time Stop Time Status Last Admin Dose Admin Acetaminophen (Tylenol) 650 mg PRN Q4HRS PRN PO MILD PAIN / TEMP > 100.3'F 05/16/21 16:30 06/04/21 10:31 DC Amlodipine Besylate (Norvasc) 10 mg DAILY PO 05/17/21 09:00 06/04/21 10:31 DC 06/04/21 08:14 Levofloxacin (Levaquin) 750 mg DAILY PO 05/17/21 09:00 05/21/21 21:00 DC 05/21/21 08:57 Olanzapine (ZyPREXA ZYDIS) 5 mg PRN BID PRN PO PSYCHOSIS 05/16/21 16:30 06/04/21 10:31 DC 05/30/21 00:42 Quetiapine Fumarate (SEROquel) 50 mg QHS PO 05/16/21 21:00 05/19/21 12:13 DC 05/18/21 20:59 Tamsulosin HCl (Flomax) 0.4 mg DAILY PO 05/17/21 09:00 06/04/21 10:31 DC 06/04/21 08:13 Artificial Tears (Refresh Classic) 1 drop PRN DAILY PRN OU DRY EYE 05/16/21 17:00 06/04/21 10:31 DC 05/27/21 08:37 Multi-Ingredient Ointment (Analgesic Winger) 1 radha PRN QID PRN TP MUSCLE PAIN 05/16/21 16:45 06/04/21 10:31 DC Al Hydroxide/Mg Hydroxide (Mylanta Plus Xs) 15 ml PRN AFTMEALHC PRN PO DYSPEPSIA 05/16/21 16:45 06/04/21 10:31 DC Magnesium Hydroxide (Milk Of Magnesia) 2,400 mg PRN QHS PRN PO CONSTIPATION 05/16/21 16:45 06/04/21 10:31 DC Lactobacillus Rhamnosus (Culturelle) 1 cap BID PO 05/18/21 21:00 06/04/21 10:31 DC 06/04/21 08:14 Mirtazapine (Remeron) 7.5 mg QHS PO 05/19/21 21:00 05/21/21 16:17 DC 05/20/21 20:11 Sertraline HCl (Zoloft) 25 mg DAILY PO 05/20/21 09:00 05/27/21 01:09 DC 05/26/21 08:21 Risperidone (RisperDAL) 0.5 mg QHS PO 05/19/21 21:00 06/04/21 10:31 DC 06/03/21 20:12 Carbidopa/Levodopa (Sinemet 25/100) 1 tab BID PO 05/21/21 21:00 05/27/21 18:06 DC 05/27/21 08:30 Mirtazapine (Remeron) 15 mg QHS PO 05/21/21 21:00 06/04/21 10:31 DC 06/03/21 20:12 Trazodone HCl (Desyrel) 50 mg PRN QHS PRN PO INSOMNIA 05/21/21 16:15 06/04/21 10:31 DC 06/03/21 00:45 Lorazepam (Ativan Intensol) 0.5 mg PRN Q1HR PRN SL ANXIETY / AGITATION 05/21/21 23:15 06/04/21 10:31 DC Trazodone HCl (Desyrel) 50 mg QHS PO 05/26/21 21:00 06/04/21 10:31 DC 06/03/21 20:12 Sertraline HCl (Zoloft) 25 mg DAILY PO 05/27/21 09:00 05/27/21 01:09 DC Sertraline HCl (Zoloft) 50 mg DAILY PO 05/30/21 09:00 05/27/21 01:09 DC Sertraline HCl (Zoloft) 50 mg DAILY PO 05/27/21 09:00 06/04/21 10:31 DC 06/04/21 08:13 Carbidopa/Levodopa (Sinemet 25/100) 1 tab TID PO 05/27/21 21:00 06/04/21 10:31 DC 06/04/21 08:13 I have reviewed the current psychotropics carefully including drug interactions. Risk benefit ratio favors no change other than as noted in my dictated progress note. 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
--- NOTE | 2021-06-05 06:53 | PDOC ---
Exam Note: Ben Note: This note is a late entry for 06/03/2021 covers elements not covered in my initial note. Subjective: The patient was seen individually in the evening of 06/03/2021 with Radha ENCINAS, discussed and reviewed the chart. The patient slept 2 hours previous night. He has been cooperative, pleasant, intermittently less confused. Review of Systems: Ambulation impaired with walker. No CV, , pulmonary, eye, ENT system symptoms on review. Mental Status Exam: The patient is oriented reasonably. Speech coherent. Abstraction fair. Computation impaired. Language function intact. Mood and affect improved. No suicidal or homicidal ideation. Laboratory Data: Reviewed. Impression: Major depressive disorder with psychotic features. Mild cognitive impairment versus major neurocognitive disorder Alzheimer, vascular with delusion, depression. Anxiety disorder, unspecified. Impulse control disorder, unspecified. Plan: Continue current psychotropics. Plan to discharge him to outpatient treatment starting tomorrow. Assessment: Vital Signs/I&O: Vital Signs Date Time Temp Pulse Resp B/P (MAP) Pulse Ox O2 Delivery O2 Flow Rate FiO2 06/04/21 08:14 60 167/79 06/04/21 06:12 97.7 18 95 Room Air I & O 06/04/21 06/04/21 06/05/21 15:00 23:00 07:00 Intake Total 710 ml Balance 710 ml Current Medications: Meds: Current Medications Medications (Trade) Dose Ordered Sig/Angy Route PRN Reason Start Time Stop Time Status Last Admin Dose Admin Acetaminophen (Tylenol) 650 mg PRN Q4HRS PRN PO MILD PAIN / TEMP > 100.3'F 05/16/21 16:30 06/04/21 10:31 DC Amlodipine Besylate (Norvasc) 10 mg DAILY PO 05/17/21 09:00 06/04/21 10:31 DC 06/04/21 08:14 Levofloxacin (Levaquin) 750 mg DAILY PO 05/17/21 09:00 05/21/21 21:00 DC 05/21/21 08:57 Olanzapine (ZyPREXA ZYDIS) 5 mg PRN BID PRN PO PSYCHOSIS 05/16/21 16:30 06/04/21 10:31 DC 05/30/21 00:42 Quetiapine Fumarate (SEROquel) 50 mg QHS PO 05/16/21 21:00 05/19/21 12:13 DC 05/18/21 20:59 Tamsulosin HCl (Flomax) 0.4 mg DAILY PO 05/17/21 09:00 06/04/21 10:31 DC 06/04/21 08:13 Artificial Tears (Refresh Classic) 1 drop PRN DAILY PRN OU DRY EYE 05/16/21 17:00 06/04/21 10:31 DC 05/27/21 08:37 Multi-Ingredient Ointment (Analgesic Callery) 1 radha PRN QID PRN TP MUSCLE PAIN 05/16/21 16:45 06/04/21 10:31 DC Al Hydroxide/Mg Hydroxide (Mylanta Plus Xs) 15 ml PRN AFTMEALHC PRN PO DYSPEPSIA 05/16/21 16:45 06/04/21 10:31 DC Magnesium Hydroxide (Milk Of Magnesia) 2,400 mg PRN QHS PRN PO CONSTIPATION 05/16/21 16:45 06/04/21 10:31 DC Lactobacillus Rhamnosus (Culturelle) 1 cap BID PO 05/18/21 21:00 06/04/21 10:31 DC 06/04/21 08:14 Mirtazapine (Remeron) 7.5 mg QHS PO 05/19/21 21:00 05/21/21 16:17 DC 05/20/21 20:11 Sertraline HCl (Zoloft) 25 mg DAILY PO 05/20/21 09:00 05/27/21 01:09 DC 05/26/21 08:21 Risperidone (RisperDAL) 0.5 mg QHS PO 05/19/21 21:00 06/04/21 10:31 DC 06/03/21 20:12 Carbidopa/Levodopa (Sinemet 25/100) 1 tab BID PO 05/21/21 21:00 05/27/21 18:06 DC 05/27/21 08:30 Mirtazapine (Remeron) 15 mg QHS PO 05/21/21 21:00 06/04/21 10:31 DC 06/03/21 20:12 Trazodone HCl (Desyrel) 50 mg PRN QHS PRN PO INSOMNIA 05/21/21 16:15 06/04/21 10:31 DC 06/03/21 00:45 Lorazepam (Ativan Intensol) 0.5 mg PRN Q1HR PRN SL ANXIETY / AGITATION 05/21/21 23:15 06/04/21 10:31 DC Trazodone HCl (Desyrel) 50 mg QHS PO 05/26/21 21:00 06/04/21 10:31 DC 06/03/21 20:12 Sertraline HCl (Zoloft) 25 mg DAILY PO 05/27/21 09:00 05/27/21 01:09 DC Sertraline HCl (Zoloft) 50 mg DAILY PO 05/30/21 09:00 05/27/21 01:09 DC Sertraline HCl (Zoloft) 50 mg DAILY PO 05/27/21 09:00 06/04/21 10:31 DC 06/04/21 08:13 Carbidopa/Levodopa (Sinemet 25/100) 1 tab TID PO 05/27/21 21:00 06/04/21 10:31 DC 06/04/21 08:13 I have reviewed the current psychotropics carefully including drug interactions. Risk benefit ratio favors no change other than as noted in my dictated progress note. 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
--- NOTE | 2021-06-05 21:39 | DS ---
DATE OF DISCHARGE: 06/04/2021 DISCHARGE SUMMARY AND PSYCHIATRIC PROGRESS NOTE This is a late entry, date of service 06/04/2021 covers elements not covered in my initial note 06/04/2021. REASON FOR ADMISSION: Please refer to the admission history for details. Briefly, the patient is an 80-year-old male referred to us from [facility] where he presented from home with increased confusion and UTI and sepsis. He was medically stabilized, extremely confused, anxious, depressed. He previously ran away from his home and spent his night outside. He was delusional, having marked sleep disturbance, was convinced that his was not in fact his and had been diagnosed with Capgras syndrome. He did have a psychiatric consult with Dr. Fernandez at [facility] recommending inpatient psychiatric stabilization, then referred to us. SIGNIFICANT FINDINGS AND CLINICAL COURSE: Following admission, the patient was seen daily individually by myself from a psychiatric standpoint, medical followup with Dr. Castellon/Dr. Gutierrez and neurologically he is followed by Dr. 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 He remained confused, anxious, restless, agitated. Adjustments were made in his psychotropics. He seemed to respond to a combination of Zoloft 50 mg a day, Risperdal 0.5 mg daily, trazodone 50 mg at bedtime, Remeron 15 mg at bedtime, Zyprexa p.r.n. and he was on Sinemet 25/100 b.i.d. and Ativan Intensol p.r.n. Gradually mood appeared to improve. He is much more oriented and lucid for several days prior to discharge. REVIEW OF SYSTEMS: Prior to discharge, review of systems, ambulation impaired with walker. No CV, , pulmonary, eye, ENT system symptoms on review. MENTAL STATUS EXAMINATION: Oriented to himself, situation. Speech is coherent, has some latency. Abstraction fair. Computation impaired. Language function intact. Mood and affect improved. LABORATORY DATA: Reviewed. 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 Rest unchanged from admission. DISCHARGE MEDICATIONS: Please refer to the MRAD. DISCHARGE INSTRUCTIONS: Outpatient psychiatric and medical followup is arranged prior to discharge. ABRIL DR: Pepper TID: [id number]
== END 2021-06-04 10:10 | DRG 885 ==
LOC: GEROPSY 14:24
PROVIDERS: ADMIT Psychiatry & Neurology Psychiatry; ATTEND Psychiatry & Neurology Psychiatry
DX: F32.3 Major depressive disorder, single episode, severe with psychotic features (principal); F01.51 Vascular dementia, unspecified severity, with behavioral disturbance; F02.81 Dementia in other diseases classified elsewhere, unspecified severity, with behavioral disturbance; G91.2 (Idiopathic) normal pressure hydrocephalus; N13.8 Other obstructive and reflux uropathy; N39.0 Urinary tract infection, site not specified; B96.1 Klebsiella pneumoniae [K. pneumoniae] as the cause of diseases classified elsewhere; E66.01 Morbid (severe) obesity due to excess calories; E78.5 Hyperlipidemia, unspecified; F41.9 Anxiety disorder, unspecified; F63.9 Impulse disorder, unspecified; G20 Parkinson's disease; G30.9 Alzheimer's disease, unspecified; I10 Essential (primary) hypertension; I73.9 Peripheral vascular disease, unspecified; N40.1 Benign prostatic hyperplasia with lower urinary tract symptoms; Z79.899 Other long term (current) drug therapy; Z80.1 Family history of malignant neoplasm of trachea, bronchus and lung; Z82.49 Family history of ischemic heart disease and other diseases of the circulatory system; Z87.891 Personal history of nicotine dependence; Z98.2 Presence of cerebrospinal fluid drainage device; Z20.822 Contact with and (suspected) exposure to COVID-19; Z68.29 Body mass index [BMI] 29.0-29.9, adult; Z87.440 Personal history of urinary (tract) infections
CPT/HCPCS: 36415; 70450; 73700; 80053; 80061; 81001; 82306; 82607; 83036; 83540; 83550; 83735; 84436; 84439; 84443; 84480; 84481; 85007; 85025; 85379; 86592; 93005; 93970; U0003; 97110; 97116; 97530; 97535